=== PATIENT | female | born 1955 | race Caucasian/White ===

== ENCOUNTER 2020-10-26 08:11 | Inpatient (IN) ==
[2020-10-26] MEDS ORDERED: VANCOMYCIN CONSULT ACTIVE PRN (09:35)
[2020-10-26] MEDS ORDERED: SODIUM CHLORIDE 0.9% 500 ML IV STA (09:35)
[2020-10-26] MEDS ORDERED: VANCOMYCIN HCL 2,000 MG in SODIUM CHLORIDE 0.9% 500 ML IV STA (09:35)
[2020-10-26 09:56] LABS: Basophils # (auto) 0.02 K/uL (0-0.2); Basophils % (auto) 0.1 %; Eosinophils # (auto) 0.26 K/uL (0-0.5); Eosinophils % (auto) 1.4 %; Hematocrit (blood only) 36.6 % (37-47); Hemoglobin 11.6 g/dL (12.0-16.0); Immature Granulocytes % (auto) 2.1 %; Lymphocytes # (auto) 1.63 K/uL (1.2-3.4); Lymphocytes % (auto) 8.7 %; Mean Corpuscular Hgb Conc 31.7 g/dL (32-36); Mean Corpuscular Volume 97.9 fL (80-100); Mean Platelet Volume 10.8 fL (7.4-10.4); Monocytes # (auto) 1.77 K/uL (0.11-0.59); Monocytes % (auto) 9.5 %; Neutrophils # (auto) 14.59 K/uL (1.4-6.5); Neutrophils % (auto) 78.2 %; Platelet Count 260 K/uL (130-400); RDW Coefficient of Variation 15.4 % (11.5-14.5); RDW Standard Deviation 55.2 fL (36.4-46.3); Red Blood Count 3.74 M/uL (4.2-5.4); White Blood Count 18.67 K/uL (4.8-10.8)
[2020-10-26 10:13] LABS: Albumin Level 2.8 gm/dl (3.4-5.0); BUN Creatinine Ratio 21.4 (10-20); Calcium 9.3 mg/dl (8.5-10.1); Creatinine Clr Calc Pharmacy 121.1 ml/min; Est GFR (African American) 121.8 ml/min; Est GFR (Non-African American) 105.1 ml/min; Potassium 3.8 mmol/L (3.5-5.1)
[2020-10-26 10:16] LABS: Albumin Globulin Ratio 0.8 (0.9-2); Bilirubin,Total 0.2 mg/dl (0.2-1); Globulin 3.4 gm/dl (2.5-4.0); Total Protein 6.2 gm/dl (6.4-8.2)
--- NOTE | 2020-10-26 10:33 | Emergency Department Note ---
History of Present Illness General Chief complaint: Infection Stated complaint: R ELBOW INFLAMED,MRSA IN CULTURE,INFECT,REF BY MD Time Seen by Provider: 10/26/20 09:20 History of Present Illness Maximum Pain Intensity: 10 A 65-year-old female who presents to the ED with a chief complaint of a right elbow infection. The patient states that she has had the redness and infection for the past couple weeks. She initially was felt to have rheumatoid arthritis inflammation. She reports that she saw Dr. Verde on Friday and the elbow was tapped and fluid was sent. The fluid culture showed MRSA, per the patient. She states that her symptoms have not improved. She was sent here for admission for her infection. Her pain is worse with movement. Denies any vomiting. No additional symptoms. Home Medications Medication Instructions Recorded Confirmed Type albuterol sulfate 90 mcg/actuation 2 puff INHALATION QID PRN 10/26/20 10/26/20 History aerosol inhaler aspirin 81 mg tablet,delayed 81 mg PO DAILY 10/26/20 10/26/20 History release bisacodyl 10 mg rectal suppository 10 mg [place] DAILY PRN MDD no more 10/26/20 10/26/20 History (Dulcolax (bisacodyl)) than 1 per week budesonide-formoterol HFA 160 2 puff INHALATION BID 10/26/20 10/26/20 History mcg-4.5 mcg/actuation aerosol inhaler (Symbicort) calcium carbonate 600 mg (1,500 1 tab PO DAILY 10/26/20 10/26/20 History mg)-vitamin D3 200 unit tablet (Calcium 600 + D(3)) cholecalciferol (vitamin D3) 10 10 mcg PO DAILY 10/26/20 10/26/20 History mcg (400 unit) chewable tablet (Vitamin D3) denosumab 60 mg/mL subcutaneous 60 mg SUBCUT Q180D 10/26/20 10/26/20 History syringe (Prolia) dextroamphetamine-amphetamine 7.5 7.5 mg PO BID 10/26/20 10/26/20 History mg tablet docusate sodium 100 mg capsule 100 mg PO BID 10/26/20 10/26/20 History fluconazole 100 mg tablet 100 mg PO DAILY 10/26/20 10/26/20 History folic acid 1 mg tablet 1 mg PO DAILY 10/26/20 10/26/20 History hydrocodone 10 mg-acetaminophen 1 tab PO Q4H PRN MDD 6 tabs per day 10/26/20 10/26/20 History 325 mg tablet hydrocortisone acetate 25 mg 25 mg [place] BID PRN 10/26/20 10/26/20 History rectal suppository ipratropium 0.5 mg-albuterol 3 mg 3 ml INHALATION Q4H PRN 10/26/20 10/26/20 History (2.5 mg base)/3 mL nebulization soln lisinopril 20 mg tablet 20 mg PO DAILY 10/26/20 10/26/20 History lorazepam 0.5 mg tablet 0.5 mg PO BID PRN 10/26/20 10/26/20 History methotrexate sodium 2.5 mg tablet 15 mg PO WK 10/26/20 10/26/20 History methylprednisolone 4 mg tablets in 4 mg PO DIRECTED 10/26/20 10/26/20 History a dose pack multivitamin 1 tab PO DAILY 10/26/20 10/26/20 History oxycodone 5 mg tablet 5 mg PO Q8H PRN 10/26/20 10/26/20 History pantoprazole 40 mg tablet,delayed 40 mg PO DAILY 10/26/20 10/26/20 History release potassium chloride 10 mEq 10 meq PO TID 10/26/20 10/26/20 History capsule,extended release rosuvastatin 10 mg tablet 10 mg PO PM 10/26/20 10/26/20 History sertraline 25 mg tablet 25 mg PO DAILY 10/26/20 10/26/20 History sulfamethoxazole 800 1 tab PO BID 10/26/20 10/26/20 History mg-trimethoprim 160 mg tablet tofacitinib 11 mg tablet,extended 11 mg PO DAILY 10/26/20 10/26/20 History release 24 hr (Xeljanz XR) Allergies Allergy/AdvReac Type Severity Reaction Status Date / Time No Known Allergies Allergy Unverified 10/26/20 10:11 Past Med/Surg History Social History Smoking Status: Former smoker Tobacco Type: Cigarettes Feels Safe at Home: Yes Review of Systems A total of 10 systems reviewed and were otherwise negative Physical Exam Vital Signs Vital Signs - 24 hr 10/26/20 08:20 10/26/20 08:50 Temperature 36.9 C Temperature Source Oral Pulse Rate 99 H Respiratory Rate 18 18 Respiratory Effort / Characteristics Non-Labored Spontaneous Respiratory Depth Normal Blood Pressure 144/68 H Blood Pressure Mean 93 Pulse Oximetry 96 92 Oxygen Delivery Method Room Air Room Air Oxygen Flow Rate 0 Sepsis Recent Fever Within 48 Hours Yes Sepsis New/Unexplained Change in Mental Status No Sepsis Action Taken by Nursing No Action Required CONSTITUTIONAL/VITAL SIGNS: Reviewed / noted above. GENERAL: Non-toxic in appearance. INTEGUMENTARY: Warm, dry, and [place]. HEAD: Normocephalic. EYES: without scleral icterus or trauma. ENT/OROPHARYNX: clear and moist. LYMPHADENOPATHY/NECK: Is supple without lymphadenopathy or meningismus. RESPIRATORY: Clear to auscultation bilaterally. No increased work of breathing. CARDIOVASCULAR: Regular rate and rhythm. GI/ABDOMEN: Soft and nontender. No organomegaly or pulsatile mass. EXTREMITIES: Warm and well perfused. Diffuse erythema to the region around the right elbow including the proximal forearm and distal humeral region. There appears to be some fluid in the area of the elbow posteriorly. BACK: No CVA tenderness. NEUROLOGICAL: Intact without focal deficits. PSYCHIATRIC: normal affect. MUSCULOSKELETAL: Normally developed with good muscle tone. TRIAGE NURSING DOCUMENTATION REVIEWED. Course Administered Medications Vancomycin HCl 2,000 mg/ (Sodium Chloride) 540 mls @ 200 mls/hr IV NOW STA Stop: 10/26/20 12:16 Last Admin: 10/26/20 09:59 Dose: 200 mls/hr Documented by: [id number] Discontinued Medications Sodium Chloride (Nss) 500 mls @ 999 mls/hr IV .Q31M STA Stop: 10/26/20 10:05 Last Admin: 10/26/20 09:45 Dose: 999 mls/hr Documented by: [id number] Medical Decision Making Differential Diagnosis Cellulitis, abscess, MRSA infection, DVT, necrotizing fasciitis, dermatitis, drug eruption, allergic reaction, as well as other pathologies. Medical Records Attestation: I reviewed the patient's medical records. Home Medications Current Medication List: was personally reviewed by me Laboratory Data Attestation: I reviewed the patient's lab results. Result diagrams: 10/26/20 09:35 10/26/20 09:35 Lab Results 10/26/20 10/26/20 Range/Units 09:35 09:35 WBC 18.67 H (4.8-10.8) K/uL RBC 3.74 L (4.2-5.4) M/uL Hgb 11.6 L (12.0-16.0) g/dL Hct 36.6 L (37-47) % MCV 97.9 (80-100) fL MCH 31.0 (25-34) pg MCHC 31.7 L (32-36) g/dL RDW Std Deviation 55.2 H (36.4-46.3) fL RDW Coeff of Stef 15.4 H (11.5-14.5) % Plt Count 260 (130-400) K/uL MPV 10.8 H (7.4-10.4) fL Immature Gran % (Auto) 2.1 % Neut % (Auto) 78.2 % Lymph % (Auto) 8.7 % Dickens % (Auto) 9.5 % Eos % (Auto) 1.4 % Baso % (Auto) 0.1 % Neut # (Auto) 14.59 H (1.4-6.5) K/uL Lymph # (Auto) 1.63 (1.2-3.4) K/uL Dickens # (Auto) 1.77 H (0.11-0.59) K/uL Eos # (Auto) 0.26 (0-0.5) K/uL Baso # (Auto) 0.02 (0-0.2) K/uL Immature Gran # (Auto) 0.40 H (0.00-0.02) K/uL Sodium 137 (136-145) mmol/L Potassium 3.8 (3.5-5.1) mmol/L Chloride 102 (98-107) mmol/L Carbon Dioxide 31 (21-32) mmol/L Anion Gap 5.0 (3-11) BUN 10 (7-18) mg/dl Creatinine 0.47 L (0.6-1.2) mg/dl Est Cr Clr Drug Dosing 121.1 ml/min Est GFR ( Amer) 121.8 ml/min Est GFR (Non-Af Amer) 105.1 ml/min BUN/Creatinine Ratio 21.4 H (10-20) Glucose 110 H (70-99) mg/dl Calcium 9.3 (8.5-10.1) mg/dl Total Bilirubin 0.2 (0.2-1) mg/dl AST 10 L (15-37) U/L ALT 11 L (12-78) U/L Alkaline Phosphatase 78 (45-117) U/L Total Protein 6.2 L (6.4-8.2) gm/dl Albumin 2.8 L (3.4-5.0) gm/dl Globulin 3.4 (2.5-4.0) gm/dl Albumin/Globulin Ratio 0.8 L (0.9-2) MDM Narrative Patient presents with cellulitis of the right arm in addition to olecranon bursitis. She had a culture of the bursal fluid that showed MRSA. She was started on IV vancomycin here. She will require further inpatient evaluation and care and IV antibiotics. Impression & Plan Cellulitis of arm, right, Septic olecranon bursitis of right elbow Discharge Plan Visit Data Chief Complaint: Infection Stated Complaint: R ELBOW INFLAMED,MRSA IN CULTURE,INFECT,REF BY MD ED Provider: Evgeny Napier Discharge Problem: Cellulitis of arm, right, Septic olecranon bursitis of right elbow Patient Disposition: Being Evaluated by Hospitalist Forms Stand Alone Forms: [facility] Prescriptions Prescriptions: No Action multivitamin Tablet 1 tab PO DAILY RF: 0 dextroamphetamine-amphetamine 7.5 mg tablet 7.5 mg PO BID RF: 0 fluconazole 100 mg tablet 100 mg PO DAILY RF: 0 potassium chloride 10 mEq capsule, extended release 10 meq PO TID RF: 0 ipratropium-albuterol 0.5 mg-3 mg(2.5 mg base)/3 mL solution for nebulization 3 ml INHALATION Q4H PRN (Reason: SOB) RF: 0 lisinopril 20 mg tablet 20 mg PO DAILY RF: 0 calcium carbonate-vitamin D3 [Calcium 600 + D(3)] 600 mg(1,500mg) -200 unit Tablet 1 tab PO DAILY RF: 0 sulfamethoxazole-trimethoprim 800-160 mg tablet 1 tab PO BID RF: 0 hydrocodone-acetaminophen 10-325 mg tablet 1 tab PO Q4H MDD 6 tabs per day PRN (Reason: Severe Pain (Scale Score 7-10)) RF: 0 aspirin 81 mg Tablet,Delayed Release (Dr/Ec) 81 mg PO DAILY RF: 0 hydrocortisone acetate 25 mg Suppository 25 mg [place] BID PRN (Reason: Hemorrhoids) RF: 0 lorazepam 0.5 mg tablet 0.5 mg PO BID PRN (Reason: agitation/ anxiety) RF: 0 methotrexate sodium 2.5 mg tablet 15 mg PO WK RF: 0 bisacodyl [Dulcolax (bisacodyl)] 10 mg Suppository 10 mg [place] DAILY MDD no more than 1 per week PRN (Reason: Constipation) RF: 0 pantoprazole 40 mg tablet,delayed release (DR/EC) 40 mg PO DAILY RF: 0 docusate sodium 100 mg Capsule 100 mg PO BID RF: 0 sertraline 25 mg tablet 25 mg PO DAILY RF: 0 folic acid 1 mg tablet 1 mg PO DAILY RF: 0 methylprednisolone 4 mg tablets,dose pack 4 mg PO DIRECTED RF: 0 albuterol sulfate 90 mcg/actuation HFA aerosol inhaler 2 puff INHALATION QID PRN (Reason: SOB/Wheezing) RF: 0 oxycodone 5 mg tablet 5 mg PO Q8H PRN (Reason: Severe Pain (Scale Score 7-10)) RF: 0 rosuvastatin 10 mg tablet 10 mg PO PM RF: 0 budesonide-formoterol [Symbicort] 160-4.5 mcg/actuation HFA aerosol inhaler 2 puff INHALATION BID RF: 0 cholecalciferol (vitamin D3) [Vitamin D3] 10 mcg (400 unit) Tablet,Chewable 10 mcg PO DAILY RF: 0 Prolia 60 mg/mL Syringe 60 mg SUBCUT Q180D RF: 0 Xeljanz XR 11 mg tablet extended release 24 hr 11 mg PO DAILY RF: 0 Referrals Referrals: Carlos Ambriz DO [Primary Care Provider] -
--- NOTE | 2020-10-26 10:52 | History & Physical Report ---
Date of Service October 26, 2020 Assessment & Plan (1) Septic olecranon bursitis of right elbow: (2) Cellulitis of arm, right: Plan: This is a 65yo F with a PMH of rheumatoid arthritis, COPD, anxiety and other medical problems listed below who presents with pain and swelling of R elbow x 2 weeks and was sent in for further evaluation and treatment of MRSA olecranon bursitis of R elbow. Outpatient synovial culture grew MRSA On day 4 of Bactrim but cellulitis worsening Afebrile, HR 99, leukocytosis 18.67, ESR 69, CRP 14.5, procal WNL Meets sepsis criteria Initial lactate 2.1. Repeat pending Started on IV Vanco in ED- plan to continue Follow blood culture Obtaining CT w/wo con of R elbow Ortho consulted Pain control, IV fluids (3) Rheumatoid arthritis: Plan: Follows with Dr. [place] On chronic steroids (continue), PRN [place] and oxycodone for RA Holding Xeljanz and MTX per rheum (4) COPD (chronic obstructive pulmonary disease): Plan: Does not require O2 at baseline, inhalers and nebs PRN (5) Anxiety: Plan: Continue Zoloft, Ativan PRN (6) Diabetes mellitus, type II: Plan: No formal diagnosis, recent a1c 6.6 at beginning of October in setting of chronic steroid use Not on any home medications Diabetic diet while admitted Patient not agreeable to SSI at this time - continue to monitor DVT Ppx: SQ Lovenox Code status: FULL PCP: Pb Dispo: Admit med tele. Plan to return home once medically stable. Patient seen in collaboration with Dr. Arnold. Please see addendum. History of Present Illness Primary Care Provider: Carlos Ambriz DO This is a 65yo F with a PMH of rheumatoid arthritis, COPD, anxiety and other medical problems listed below who presents with pain and swelling of R elbow x 2 weeks. Does not remember a bite or trauma to elbow. Initially thought pain was due to RA flare and completed medrol dose pack. Saw Dr. Chandler on Friday who was concerned for septic olecranon bursitis and did joint aspiration. Was started on Bactrim at that time. Synovial culture grew MRSA. Patient has continued to experience worsening R elbow pain and swelling in the past few days despite antibiotic therapy. Redness now extending down forarm as well. Warm to touch. Was seen for follow up with rheumatology earlier today and directed to ER for IV antibiotics and orthopedic evaluation. Endorses low grade fever. No chills. Reduced ROM due to pain. Denies lightheadedness, headache, chest pain, SOB, nausea, vomiting, abdominal pain, dysuria, diarrhea or constipation. Holding Xeljanz and MTX per rheum. Allergies Allergy/AdvReac Type Severity Reaction Status Date / Time No Known Allergies Allergy Unverified 10/26/20 10:11 Home Medications Medication Instructions Recorded Confirmed Type albuterol sulfate 90 mcg/actuation 2 puff INHALATION QID PRN 10/26/20 10/26/20 History aerosol inhaler aspirin 81 mg tablet,delayed 81 mg PO QAM 10/26/20 10/26/20 History release bisacodyl 10 mg rectal suppository 10 mg [place] DAILY PRN MDD no more 10/26/20 10/26/20 History (Dulcolax (bisacodyl)) than 1 per week budesonide-formoterol HFA 160 2 puff INHALATION BID 10/26/20 10/26/20 History mcg-4.5 mcg/actuation aerosol inhaler (Symbicort) calcium carbonate 600 mg (1,500 1 tab PO QAM 10/26/20 10/26/20 History mg)-vitamin D3 200 unit tablet (Calcium 600 + D(3)) cholecalciferol (vitamin D3) 10 10 mcg PO QAM 10/26/20 10/26/20 History mcg (400 unit) chewable tablet (Vitamin D3) denosumab 60 mg/mL subcutaneous 60 mg SUBCUT Q180D 10/26/20 10/26/20 History syringe (Prolia) dextroamphetamine-amphetamine 7.5 7.5 mg PO BID 10/26/20 10/26/20 History mg tablet docusate sodium 100 mg capsule 100 mg PO BID 10/26/20 10/26/20 History fluconazole 100 mg tablet 100 mg PO QAM 10/26/20 10/26/20 History folic acid 1 mg tablet 1 mg PO QAM 10/26/20 10/26/20 History hydrocodone 10 mg-acetaminophen 1 tab PO Q4H PRN MDD 6 tabs per day 10/26/20 10/26/20 History 325 mg tablet hydrocortisone acetate 25 mg 25 mg [place] BID PRN 10/26/20 10/26/20 History rectal suppository ipratropium 0.5 mg-albuterol 3 mg 3 ml INHALATION Q4H PRN 10/26/20 10/26/20 History (2.5 mg base)/3 mL nebulization soln lisinopril 20 mg tablet 20 mg PO QAM 10/26/20 10/26/20 History lorazepam 0.5 mg tablet 0.5 mg PO BID PRN 10/26/20 10/26/20 History methotrexate sodium 2.5 mg tablet 15 mg PO WK 10/26/20 10/26/20 History multivitamin 1 tab PO QAM 10/26/20 10/26/20 History oxycodone 5 mg tablet 5 mg PO Q8H PRN 10/26/20 10/26/20 History pantoprazole 40 mg tablet,delayed 40 mg PO QAM 10/26/20 10/26/20 History release potassium chloride 10 mEq 10 meq PO TID 10/26/20 10/26/20 History capsule,extended release prednisone 5 mg tablet 5 mg PO QAM 10/26/20 10/26/20 History rosuvastatin 10 mg tablet 10 mg PO PM 10/26/20 10/26/20 History sertraline 25 mg tablet 25 mg PO QAM 10/26/20 10/26/20 History sulfamethoxazole 800 1 tab PO BID 10/26/20 10/26/20 History mg-trimethoprim 160 mg tablet tofacitinib 11 mg tablet,extended 11 mg PO QAM 10/26/20 10/26/20 History release 24 hr (Xeljanz XR) Past Med/Surg History Medical History COPD (chronic obstructive pulmonary disease) Diabetes mellitus, type II Rheumatoid arthritis Surgical History Delivery by section H/O arthroscopy of shoulder Family History Other Heart disease Lung cancer Social History (Updated 10/26/20 @ 10:51 by Chey Soto PA-C) Smoking Status: Former smoker Tobacco Type: Cigarettes Years Smoked: 25; Hx Alcohol Use: Yes Alcohol Intake Frequency Comment: occasional Hx Substance Use: No Feels Safe at Home: Yes Review of Systems Review of Systems: At least ten systems reviewed and negative except as noted in the HPI. Physical Exam Physical Exam: Please see Dr. Arnold's addendum for physical exam details. Results & Data Results & Data ([facility]) Vital Signs (Past 12 Hours) Vital Signs Temp Pulse Resp BP Pulse Ox 10/26/20 08:50 18 92 10/26/20 08:20 36.9 C 99 H 18 144/68 H 96 Laboratory Results Short CBC 10/26/20 Range/Units 09:35 WBC 18.67 H (4.8-10.8) K/uL Hgb 11.6 L (12.0-16.0) g/dL Hct 36.6 L (37-47) % Plt Count 260 (130-400) K/uL BMP 10/26/20 09:35 Sodium 137 Potassium 3.8 Chloride 102 Carbon Dioxide 31 BUN 10 Creatinine 0.47 L Glucose 110 H Calcium 9.3 Liver Function 10/26/20 Range/Units 09:35 Total Bilirubin 0.2 (0.2-1) mg/dl AST 10 L (15-37) U/L ALT 11 L (12-78) U/L Alkaline Phosphatase 78 (45-117) U/L Albumin 2.8 L (3.4-5.0) gm/dl Diagnostic Findings CT R elbow pending Supervising Physician Co-Signing Physician Notes Patient is a 65-year-old female with history of rheumatoid arthritis, COPD and other medical problems presents with history of right elbow swelling, erythema, low-grade fever intermittently which has been gradually worsening since 2 weeks duration. Patient denies any wound, discharge, trauma, bug bite. She was seen by her shirt marker and had aspiration of synovial fluid which grew MRSA as outpatient and was placed on Bactrim on Friday. He states the rash started after extension down to her wrist. Pain is pressure-like sensation, radiates to the wrist, worsens with activity, 8/10 intensity. please review HPI for complete details of presentation. She was noted to have an elevated white blood count 18k, lactic acid 2.1, ESR 69, procalcitonin 0.05, CRP 14.5. CT of the elbow is pending. Physical Exam: Vitals signs as noted above General Appearance:Moderately built and nourished, no apparent distress Head: normocephalic, Atraumatic Eyes: normal inspection, EOMI Neck: supple, Trachea midline Respiratory/Chest: Decreased breath sounds, CTA, No accessory muscle use Cardiovascular: S1, S2, No murmur Abdomen/GI:Soft, Non tender, Bowel sounds present Extremities/Musculoskeletal:normal inspection, no edema, right elbow on decreased ROM, warm, erythematous, tender. Neurologic/Psych:AAOX3, grossly no focal neurological deficits Skin: normal color, warm Right septic olecranon bursitis/Cellulitis R/O Abscess CT Elbow pending Outpatient synovial fluid culture grew MRSA Hold Bactrim Blood cultures obtained Started on IV vancomycin Consulted orthopedics Pain control Agree with holding RA meds--Xeljanz, methotrexate I personally reviewed the record. Patient is interviewed and examined at bedside. Patient's care is coordinated with Chey Soto PA-C. Please refer to the documentation above for details of patient's presentation and for discussion of other issues.
[2020-10-26] MEDS ORDERED: OPTIRAY 320 100ml IV ONE (12:37)
[2020-10-26] MEDS ORDERED: ACETAMINOPHEN 325 MG TAB PO PRN (12:50)
[2020-10-26] MEDS ORDERED: POLYETHYLENE (MIRALAX) 17 GM PACK PO PRN (12:50)
[2020-10-26] MEDS ORDERED: ONDANSETRON INJ 2 MG/ML 2 ML VIAL IV PRN (12:50)
[2020-10-26] MEDS: HYDROcodone/ACETAMINOPHEN 10/325 TAB PO PRN ×2 (13:28→18:11)
[2020-10-26] MEDS ORDERED: ALBUT/IPRATROP 3MG/0.5MG NEB 3 ML VIAL INH PRN (13:29)
[2020-10-26] MEDS: SODIUM CHLORIDE 0.9% 1000ML 1,000 ML IV SCH ×2 (13:29→20:09)
[2020-10-26] MEDS ORDERED: LORazepam 0.5 MG TAB PO PRN (13:29)
[2020-10-26] MEDS ORDERED: ALBUTEROL HFA 8 GM INHALER INH PRN (13:29)
[2020-10-26] MEDS ORDERED: bisacodyL 10 MG SUPP PR PRN (13:29)
--- NOTE | 2020-10-26 13:42 | CT Scan Report ---
CT SCAN OF THE RIGHT ELBOW COMBO CLINICAL HISTORY: Olecranon bursitis. Infection. COMPARISON STUDY: No priors. TECHNIQUE: Before and following the IV administration of 94 cc of Optiray 320, CT scan of the right e lbow is performed from the distal humeral shaft the proximal radius and ulna. Images are reviewed in the axial, sagittal, and coronal planes. IV contrast was administered without complication. Note that interpretation is suboptimal without plain film correlate. The examination is also degraded by subop timal patient positioning. A dose lowering technique was utilized adhering to the principles of ALARA . CT DOSE: 394.88 mGy.cm FINDINGS: The skeletal structures are osteopenic. There is no evidence of fracture. No bony erosion o r periostitis is identified. The joint spaces of the elbow are maintained. There is a joint effusion. Significant soft tissue edema is present around the elbow, greatest dorsally. No soft tissue gas is seen. A crescentic fluid collection is seen posterior to the olecranon process and measures approxima tely 4 x 0.7 x 4 cm. This is consistent with olecranon bursitis. The sterility of this fluid cannot b e evaluated by CT. The regional musculature is normal in appearance. The regional vessels are patent. IMPRESSION: 1. No acute bony abnormality is identified. 2. Joint effusion. 3. Significant soft tissue edema around the elbow is typical for cellulitis. Clinical correlation qasim l be required. 4. There is an approximately 4 cm crescentic fluid collection posterior to the olecranon process, com patible with the reported history of olecranon bursitis. The sterility of this fluid cannot be evalua victorino by imaging and clinical correlation will be required. ACT 112: Negative or not required by law. Dictated: 10/26/2020 1:11 PM Transcribed: 10/26/2020 1:34 PM Hailey [id number] [email or web address] Electronically signed by: Jeffery Jauregui M.D. 10/26/2020 1:40 PM
--- NOTE | 2020-10-26 14:37 | Orthopedic Consultation ---
Date of Consultation October 26, 2020 Assessment & Plan (1) Septic olecranon bursitis of right elbow: CT scan results as noted. Although it is showing a bit of a joint effusion, I do not believe this to be infectious secondary to clinical examination. Culture results from 10/23/2020 showing MRSA. Patient has been placed on vancomycin. Continue IV antibiotics. Elevation of the right upper extremity on at least 2 pillows. I discussed with the patient that there is a good chance that she would need an irrigation and debridement. She has eaten today. We will make her n.p.o. after midnight. We discussed that if I&D is warranted, that it would be tomorrow afternoon versus Friday morning depending on OR status. I will contact [facility] physicians to discuss the case with them and finalize any further plans. Thank you for this consult. History of Present Illness Reason for Consultation: Right septic olecranon bursitis Attending Physician: Lowell Arnold MD History of Present Illness Patient is a 65-year-old white female with history of COPD, rheumatoid arthritis, diabetes mellitus type 2, anxiety who states that she bumped her elbow a week or 2 ago and began developing swelling in the right elbow. It was initially felt to be a possible rheumatoid flare which she has had before and was started on steroids. It began to increasingly hurt and become red. She eventually saw her fern gatherer in the office at the beginning of the week. At that time, he aspirated fluid from the right olecranon bursa and sent it for culture. She was started on Bactrim. Culture came back positive for MRSA. Patient states that she continued to have worsening symptoms which included increasing swelling and redness of her forearm down to her wrist. She continued to have moderate pain in the right elbow. A repeat visit to her physician was then followed by coming here to the emergency room at his request. No complaints of fevers or chills, nausea or vomiting, chest pain, lightheadedness, increasing shortness of breath. [facility] and has been started on IV antibiotics. We have been asked to see her for her right septic olecranon bursitis. Allergies Allergy/AdvReac Type Severity Reaction Status Date / Time No Known Allergies Allergy Unverified 10/26/20 10:11 Home Medications Medication Instructions Recorded Confirmed Type albuterol sulfate 90 mcg/actuation 2 puff INHALATION QID PRN 10/26/20 10/26/20 History aerosol inhaler aspirin 81 mg tablet,delayed 81 mg PO QAM 10/26/20 10/26/20 History release bisacodyl 10 mg rectal suppository 10 mg [place] DAILY PRN MDD no more 10/26/20 10/26/20 History (Dulcolax (bisacodyl)) than 1 per week budesonide-formoterol HFA 160 2 puff INHALATION BID 10/26/20 10/26/20 History mcg-4.5 mcg/actuation aerosol inhaler (Symbicort) calcium carbonate 600 mg (1,500 1 tab PO QAM 10/26/20 10/26/20 History mg)-vitamin D3 200 unit tablet (Calcium 600 + D(3)) cholecalciferol (vitamin D3) 10 10 mcg PO QAM 10/26/20 10/26/20 History mcg (400 unit) chewable tablet (Vitamin D3) denosumab 60 mg/mL subcutaneous 60 mg SUBCUT Q180D 10/26/20 10/26/20 History syringe (Prolia) dextroamphetamine-amphetamine 7.5 7.5 mg PO BID 10/26/20 10/26/20 History mg tablet docusate sodium 100 mg capsule 100 mg PO BID 10/26/20 10/26/20 History fluconazole 100 mg tablet 100 mg PO QAM 10/26/20 10/26/20 History folic acid 1 mg tablet 1 mg PO QAM 10/26/20 10/26/20 History hydrocodone 10 mg-acetaminophen 1 tab PO Q4H PRN MDD 6 tabs per day 10/26/20 10/26/20 History 325 mg tablet hydrocortisone acetate 25 mg 25 mg [place] BID PRN 10/26/20 10/26/20 History rectal suppository ipratropium 0.5 mg-albuterol 3 mg 3 ml INHALATION Q4H PRN 10/26/20 10/26/20 History (2.5 mg base)/3 mL nebulization soln lisinopril 20 mg tablet 20 mg PO QAM 10/26/20 10/26/20 History lorazepam 0.5 mg tablet 0.5 mg PO BID PRN 10/26/20 10/26/20 History methotrexate sodium 2.5 mg tablet 15 mg PO WK 10/26/20 10/26/20 History multivitamin 1 tab PO QAM 10/26/20 10/26/20 History oxycodone 5 mg tablet 5 mg PO Q8H PRN 10/26/20 10/26/20 History pantoprazole 40 mg tablet,delayed 40 mg PO QAM 10/26/20 10/26/20 History release potassium chloride 10 mEq 10 meq PO TID 10/26/20 10/26/20 History capsule,extended release prednisone 5 mg tablet 5 mg PO QAM 10/26/20 10/26/20 History rosuvastatin 10 mg tablet 10 mg PO PM 10/26/20 10/26/20 History sertraline 25 mg tablet 25 mg PO QAM 10/26/20 10/26/20 History sulfamethoxazole 800 1 tab PO BID 10/26/20 10/26/20 History mg-trimethoprim 160 mg tablet tofacitinib 11 mg tablet,extended 11 mg PO QAM 10/26/20 10/26/20 History release 24 hr (Xeljanz XR) Patient History Medical History COPD (chronic obstructive pulmonary disease) Diabetes mellitus, type II Rheumatoid arthritis Surgical History Delivery by section H/O arthroscopy of shoulder Family History Other Heart disease Lung cancer Social History Smoking Status: Former smoker Tobacco Type: Cigarettes Years Smoked: 25; Smoking End Date: 4 months ago; Second Hand Exposure: Yes ( smokes outside of home); Do You Dip or Chew Tobacco: No; Tobacco Cessation Education Requested by Patient: No Hx Alcohol Use: No Hx Substance Use: No Preferred Language: Arabic Communication Ability: Effective Monument Erector Required: No Beliefs That Will Affect Care: None Current Living Situation: Spouse Current Living Situation Comment: home with spouse. Other Information That Helps Us Care for You: Yes (daughter helps with groceries & other ADLs at times.) Feels Safe at Home: Yes Safety Concerns: Feels Safe At This Time Assistive Devices: Denture - Upper, Denture - Lower and Walker Review of Systems Review of Systems: All systems reviewed & are unremarkable except as noted in HPI & below Physical Exam Physical Exam: On examination, the patient is sitting up in bed awake and alert. She is oriented x3, no acute distress, pleasant and cooperative. When examining the right upper extremity, she has a noticeable cellulitis of the forearm from the wrist to the elbow. She has obvious swelling and erythema at the right elbow. She is able to take it through gentle range of motion which is reduced somewhat secondary to pain. She states that all of the pain is located at the elbow over the olecranon bursa. Range of motion does not cause her any deep joint pain with flexion or extension. She has a noticeable erythema going down the forearm with swelling noted of the forearm. It does appear that she is having a favorable response to some of the antibiotics with some decreased swelling and wrinkling of the skin. Swelling actually does go down to the dorsum of the hand. She has good range of motion of her right wrist without discomfort. She is able to go through range of motion of all her fingers without discomfort and range of motion is intact. She denies any pain above the elbow and denies pain in the axilla. The area over the elbow itself is moderately swollen and boggy. I can appreciate a fluid collection. She is exquisitely tender on palpation over this area. She denies any referred pain going down into the fingers. Sensation is completely intact of her fingers and she has good range of motion is noted. There is no gross motor or sensory loss seen at this time. Cap refill of the fingers is less than 2 seconds. Results & Data ([facility]) Vital Signs (Past 12 Hours) Vital Signs Temp Pulse Pulse Resp BP BP Pulse Ox 10/26/20 14:17 37.0 C 94 H 19 144/64 H 91 10/26/20 12:50 37.0 C 20 144/64 H 91 10/26/20 12:45 37.0 C 20 10/26/20 08:50 18 92 10/26/20 08:20 36.9 C 99 H 18 144/68 H 96 Pulse Ox 10/26/20 14:17 10/26/20 12:50 91 10/26/20 12:45 10/26/20 08:50 08/19/21 08:20 Diagnostic Findings Patient: SIMRAN DE LA GARZA Date: 10/26/20#: [id number]: 57Christopher PIERRE RDAcct ID:[id number]: Date: 1955City Zip: [place] [address]Dji: 65Location: 2WSex: FRoom/Bed: [id number] Phy: Lowell Arnold, YANEiagnosis: MRSA OLECRANON BURSITISPri Phy: Carlos Ambriz, DOService Date: 10/26/20Fam Phy:Interpreting Phy: Jeffery Jauregui MDAdmit Phy: Lowell Arnold MD Ordering Phy: Chey Soto PA-C cc: ~ CT SCAN OF THE RIGHT ELBOW COMBO CLINICAL HISTORY: Olecranon bursitis. Infection. COMPARISON STUDY: No priors. TECHNIQUE: Before and following the IV administration of 94 cc of Optiray 320, CT scan of the right elbow is performed from the distal humeral shaft the proximal radius and ulna. Images are reviewed in the axial, sagittal, and coronal planes. IV contrast was administered without complication. Note that interpretation is suboptimal without plain film correlate. The examination is also degraded by suboptimal patient positioning. A dose lowering technique was utilized adhering to the principles of ALARA. CT DOSE: 394.88 mGy.cm FINDINGS: The skeletal structures are osteopenic. There is no evidence of fracture. No bony erosion or periostitis is identified. The joint spaces of the elbow are maintained. There is a joint effusion. Significant soft tissue edema is present around the elbow, greatest dorsally. No soft tissue gas is seen. A crescentic fluid collection is seen posterior to the olecranon process and measures approximately 4 x 0.7 x 4 cm. This is consistent with olecranon bursitis. The sterility of this fluid cannot be evaluated by CT. The regional musculature is normal in appearance. The regional vessels are patent. IMPRESSION: 1. No acute bony abnormality is identified. 2. Joint effusion. 3. Significant soft tissue edema around the elbow is typical for cellulitis. Clinical correlation will be required. 4. There is an approximately 4 cm crescentic fluid collection posterior to the olecranon process, compatible with the reported history of olecranon bursitis. The sterility of this fluid cannot be evaluated by imaging and clinical correlation will be required.
[2020-10-26] MEDS: POTASSIUM CHLORIDE 10 MEQ TABCR PO SCH ×2 (15:40→20:17)
[2020-10-26] MEDS: ENOXAPARIN INJ 40 MG/0.4 ML SYR SQ SCH (15:40)
[2020-10-26] MEDS: VANCOMYCIN HCL 1,500 MG in SODIUM CHLORIDE 0.9% 500 ML IV SCH (20:10)
[2020-10-26] MEDS: KETOROLAC TROMETHAMINE 15 MG/ML VIAL IV PRN (20:13)
[2020-10-26] MEDS: DOCUSATE SODIUM 100 MG CAP PO SCH (20:17)
[2020-10-26] MEDS: ROSUVASTATIN CALCIUM 10 MG TAB PO SCH (20:18)
[2020-10-26] MEDS: AMPHETAMINE ASP/SULF/DEXTRAMPH 5 MG TAB PO SCH (20:20)
[2020-10-26] MEDS: oxyCODONE HCL IR 5 MG TAB (IMMEDIATE RELEASE) PO PRN (23:09)
[2020-10-27] MEDS: HYDROcodone/ACETAMINOPHEN 10/325 TAB PO PRN ×4 (03:23→23:46)
[2020-10-27] MEDS: KETOROLAC TROMETHAMINE 15 MG/ML VIAL IV PRN (06:18)
[2020-10-27 07:51] LABS: Hematocrit (blood only) 32.5 % (37-47); Hemoglobin 10.4 g/dL (12.0-16.0); Mean Corpuscular Volume 96.7 fL (80-100); Mean Platelet Volume 10.7 fL (7.4-10.4); Platelet Count 226 K/uL (130-400); RDW Coefficient of Variation 15.6 % (11.5-14.5); RDW Standard Deviation 54.8 fL (36.4-46.3); Red Blood Count 3.36 M/uL (4.2-5.4); White Blood Count 14.35 K/uL (4.8-10.8)
[2020-10-27 08:24] LABS: BUN Creatinine Ratio 23.4 (10-20); Calcium 7.9 mg/dl (8.5-10.1); Creatinine Clr Calc Pharmacy 162.6 ml/min; Est GFR (African American) 134.2 ml/min; Est GFR (Non-African American) 115.8 ml/min; Potassium 3.6 mmol/L (3.5-5.1)
[2020-10-27] MEDS: POTASSIUM CHLORIDE 10 MEQ TABCR PO SCH ×3 (08:52→20:01)
[2020-10-27] MEDS: MULTIVITAMIN TAB PO SCH (08:53)
[2020-10-27] MEDS: CHOLECALCIFEROL 400 UNITS 10 MCG TAB PO SCH (08:53)
[2020-10-27] MEDS: CALCIUM 600MG + VIT D 400 IU TAB PO SCH (08:53)
[2020-10-27] MEDS: ASPIRIN 81 MG ECTAB PO SCH (08:53)
[2020-10-27] MEDS: SERTRALINE HCL 50 MG TABLET PO SCH (08:54)
[2020-10-27] MEDS: FOLIC ACID 1 MG TAB PO SCH (08:55)
[2020-10-27] MEDS: PANTOprazole 40 MG TAB PO SCH (08:55)
[2020-10-27] MEDS: VANCOMYCIN HCL 1,500 MG in SODIUM CHLORIDE 0.9% 500 ML IV SCH ×2 (08:55→21:14)
[2020-10-27] MEDS: DOCUSATE SODIUM 100 MG CAP PO SCH ×2 (08:55→20:01)
[2020-10-27] MEDS: FLUTICASONE/VILANTEROL 100/25MCG 14 PUFFS/INHALER INH SCH (08:56)
--- NOTE | 2020-10-27 08:58 | Pharmacy Report ---
Pharmacy Vanc AUC Short Note - Date of Service October 27, 2020 - Assessment & Plan Assessment 65 year old F receiving vancomycin for possible septic bursitis. Developed swelling of elbow prior to admission. Had been on steroids due to concern of rheumatoid flare. Fluid aspirated from area and sent for culture and had been started on bactrim prior to admission. Culture per notes positive for MRSA Day # 2 of antimicrobial therapy. Plan Vancomycin * AUC/ANTELMO is the preferred PK/PD target for vancomycin * AUC guided dosing is effective and associated with decreased risk of nephrotoxicity compared to traditional trough targets * Trough level of ~16 mcg/mL is predicted to achieve target AUC/ANTELMO of 400-600 mg/L.hr and may be associated with a 11 % risk of nephrotoxicity * Continue dose of vancomycin 1500 mg iv q 12 hr * Trough level ordered for 10/27 at 1999 Pharmacy will continue to follow and will adjust dose/frequency as necessary. Thank you.
[2020-10-27] MEDS ORDERED: lisinopril 20 MG TAB PO SCH (09:00)
[2020-10-27] MEDS: oxyCODONE HCL IR 5 MG TAB (IMMEDIATE RELEASE) PO PRN ×2 (09:13→20:09)
[2020-10-27] MEDS: NSS + 20MEQ KCL 20 MEQ/1,000 ML BAG IV SCH ×2 (09:14→19:59)
[2020-10-27] MEDS: AMPHETAMINE ASP/SULF/DEXTRAMPH 5 MG TAB PO SCH ×2 (09:24→20:01)
[2020-10-27] MEDS: predniSONE 5 MG TAB PO SCH (09:24)
--- NOTE | 2020-10-27 09:42 | Orthopedic Progress Note ---
Date of Service October 27, 2020 Assessment & Plan (1) Septic olecranon bursitis of right elbow: Plan: Continue IV antibiotics. Continue elevation of the right arm. Plan for open irrigation debridement of right septic electron bursitis tomorrow morning. Resumed diet today. N.p.o. after midnight. Admission and Anticipated Discharge Date Admission Date: October 26, 2020 Subjective Patient sitting up in bed awake and alert. Continuing to have pain related to her cellulitis and her septic olecranon bursitis. No new complaints denies chest pain, worsening shortness of breath, lightheadedness Physical Exam Physical Exam: No major changes with the exam compared to yesterday. She continues with a cellulitis of the right forearm and also a right septic olecranon bursitis. She continues to be able to move the elbow with pain only on the superficial area of her right olecranon bursa. Mild discomfort in the forearm. Continues with good wrist range of motion. Mild swelling into the dorsum of the hand. Cap refills less than 2 seconds. Results & Data ([facility]) Vital Signs (Past 12 Hours) Vital Signs Temp Pulse Pulse Resp BP Pulse Ox 10/27/20 07:08 37.4 C 86 20 95/58 L 91 10/27/20 03:05 37.6 C H 92 H 20 125/67 92 10/27/20 00:06 89 10/26/20 23:00 37.1 C 88 20 131/57 L 91
--- NOTE | 2020-10-27 15:03 | Hospitalist Progress Note ---
Date of Service October 27, 2020 Assessment & Plan (1) Septic olecranon bursitis of right elbow: (2) Cellulitis of arm, right: Plan: per admitting service notes: This is a 65yo F with a PMH of rheumatoid arthritis, COPD, anxiety and other medical problems listed below who presents with pain and swelling of R elbow x 2 weeks and was sent in for further evaluation and treatment of MRSA olecranon bursitis of R elbow. Outpatient synovial culture grew MRSA On day 4 of Bactrim but cellulitis worsening Afebrile, HR 99, leukocytosis 18.67, ESR 69, CRP 14.5, procal WNL Meets sepsis criteria Initial lactate 2.1, normalized 10/27 CT R elbow: 1. No acute bony abnormality is identified. 2. Joint effusion. 3. Significant soft tissue edema around the elbow is typical for cellulitis. Clinical correlation will be required. 4. There is an approximately 4 cm crescentic fluid collection posterior to the olecranon process, compatible with the reported history of olecranon bursitis. The sterility of this fluid cannot be evaluated by imaging and clinical correlation will be required. - blood cultures pending - afebrile WBC down continue IV Vancomycin NSS added for Surgery tomorrow- no medical contraindication to proceed with surgery (3) Rheumatoid arthritis: Plan: Follows with Dr. [place] On chronic steroids (continue), PRN [place] and oxycodone for RA Holding Xeljanz and MTX per rheum (4) COPD (chronic obstructive pulmonary disease): Plan: Does not require O2 at baseline, inhalers and nebs PRN (5) Anxiety: Plan: Continue Zoloft, Ativan PRN (6) Diabetes mellitus, type II: Plan: No formal diagnosis, recent a1c 6.6 at beginning of October in setting of chronic steroid use Not on any home medications Diabetic diet while admitted Patient not agreeable to SSI at this time BSG acceptable DVT Ppx: SQ Lovenox Code status: FULL PCP: Pb Admission and Anticipated Discharge Date Admission Date: October 26, 2020 Subjective ff up for r olecranon bursitis, etc seen resting in bed, not in distress reports pain on her r elbow- about the same as yesterday no fever/chills, headache, chest pain, dyspnea, abdominal pain, nausea no other symptoms Review of Systems Review of Systems: all noted and negative except for above Physical Exam Physical Exam: General- oriented x 3, not in distress, speaks in sentences with no effort or accessory muscle use Head- atraumatic Eyes- PERRL, EOMI, anicteric ENT- oropharynx clear Neck- supple, no JVD, no adenopathy, no thyromegaly; carotids +2/2, no bruits appreciated Lungs- clear to auscultation bilaterally, no rales/wheezes Heart- normal rate, regular rhythm; no murmur, no gallop, no rub appreciated Abdomen- normal bowel sounds, nondistended, soft, nontender, no masses or hepatosplenomegaly Extremities- no pretibial edema, no calf tenderness; peripheral pulses intact R elbow: (+) moderate edema, and erythema, with mild warmth extending to forearm, hand, and mid upper arm Neuro- alert, oriented x 3; CN 2-12 grossly intact; motor 5/5 bilaterally;sensation 100% on all extremities; no other gross focal neurologic deficits Skin- warm & dry Results & Data Results & Data ([facility]) Vital Signs (Past 12 Hours) Vital Signs Temp Pulse Pulse Resp BP Pulse Ox 10/27/20 11:13 36.9 C 84 18 137/70 92 10/27/20 08:32 94 H 10/27/20 07:08 37.4 C 86 20 95/58 L 91 10/27/20 03:05 37.6 C H 92 H 20 125/67 92 all noted and reviewed including below
[2020-10-27] MEDS ORDERED: VANCOMYCIN TROUGH ONE (19:30)
[2020-10-27] MEDS: ROSUVASTATIN CALCIUM 10 MG TAB PO SCH (20:01)
--- NOTE | 2020-10-27 21:11 | Pharmacy Report ---
Pharmacy Vanc AUC Short Note - Date of Service October 27, 2020 - Assessment & Plan Assessment 65 year old F receiving vancomycin for treatment of MRSA bursitis. Pertinent microbiologic data includes: culture growing MRSA (collected prior to admission). Day # 2 of antimicrobial therapy. Plan Vancomycin * AUC/ANTELMO is the preferred PK/PD target for vancomycin * AUC guided dosing is effective and associated with decreased risk of nephrotoxicity compared to traditional trough targets * Trough level of 10.9 mcg/mL is predicted to achieve target AUC/ANTELMO of 400-600 mg/L.hr and may be associated with a 7 % risk of nephrotoxicity * Continue dose of 1500 mg IV every 12 hours * Trough to be reordered based upon clinical picture Pharmacy will continue to follow and will adjust dose/frequency as necessary. Thank you.
[2020-10-28] MEDS: oxyCODONE HCL IR 5 MG TAB (IMMEDIATE RELEASE) PO PRN ×2 (02:30→19:32)
[2020-10-28] MEDS: HYDROcodone/ACETAMINOPHEN 10/325 TAB PO PRN ×4 (04:10→21:28)
[2020-10-28] MEDS: NSS + 20MEQ KCL 20 MEQ/1,000 ML BAG IV SCH ×3 (06:23→19:29)
[2020-10-28] MEDS ORDERED: ONDANSETRON INJ 2 MG/ML 2 ML VIAL ONE (07:15)
[2020-10-28] MEDS ORDERED: fentaNYL citrate 100 MCG/2 ML VIAL ONE (07:15)
[2020-10-28] MEDS ORDERED: PROPOFOL IV EMULSION 10 MG/ML 20 ML VIAL IV ONE (07:15)
[2020-10-28] MEDS ORDERED: DEXAMETHASONE SOD INJ 4 MG/ML VIAL ONE (07:15)
[2020-10-28] MEDS ORDERED: LIDOCAINE 2% 2 ML VIAL/AMP(20MG/ML) INFIL ONE (07:15)
[2020-10-28] MEDS ORDERED: MIDAZOLAM HCL 1 MG/ML 2ML VIAL ONE (07:15)
--- NOTE | 2020-10-28 07:16 | Anesthesiology Consultation ---
Date of Service October 28, 2020 Assessment & Plan (1) Encounter for pre-operative examination: Chart Review Chart Review: Acceptable Risk for Surgery and Patient NOT seen in Pre Admission Testing Consults Requested none History Surgery Operation Date: 10/28/20 07:30 Proposed Procedures p Right Septic Olecranon Bursa Incision and Drainage - Sly Hawkins M.D. Height/Weight Height: 5 ft 4 in Weight: 74.5 kg Allergies Allergy/AdvReac Type Severity Reaction Status Date / Time No Known Allergies Allergy Unverified 10/26/20 10:11 Medications Home Medications Medication Instructions Recorded Confirmed Last Taken albuterol sulfate 90 mcg/actuation 2 puff INHALATION QID PRN 10/26/20 10/26/20 10/26/20 aerosol inhaler aspirin 81 mg tablet,delayed 81 mg PO QAM 10/26/20 10/26/20 10/25/20 release bisacodyl 10 mg rectal suppository 10 mg [place] DAILY PRN MDD no more 10/26/20 10/26/20 Unknown (Dulcolax (bisacodyl)) than 1 per week budesonide-formoterol HFA 160 2 puff INHALATION BID 10/26/20 10/26/20 10/25/20 mcg-4.5 mcg/actuation aerosol inhaler (Symbicort) calcium carbonate 600 mg (1,500 1 tab PO QAM 10/26/20 10/26/20 10/25/20 mg)-vitamin D3 200 unit tablet (Calcium 600 + D(3)) cholecalciferol (vitamin D3) 10 10 mcg PO QAM 10/26/20 10/26/20 10/25/20 mcg (400 unit) chewable tablet (Vitamin D3) denosumab 60 mg/mL subcutaneous 60 mg SUBCUT Q180D 10/26/20 10/26/20 08/23/20 syringe (Prolia) dextroamphetamine-amphetamine 7.5 7.5 mg PO BID 10/26/20 10/26/20 10/25/20 mg tablet docusate sodium 100 mg capsule 100 mg PO BID 10/26/20 10/26/20 10/25/20 fluconazole 100 mg tablet 100 mg PO QAM 10/26/20 10/26/20 10/25/20 folic acid 1 mg tablet 1 mg PO QAM 0810/26/20 10/25/20 hydrocodone 10 mg-acetaminophen 1 tab PO Q4H PRN MDD 6 tabs per day 10/26/20 10/26/20 10/26/20 325 mg tablet hydrocortisone acetate 25 mg 25 mg [place] BID PRN 10/26/20 10/26/20 Unknown rectal suppository ipratropium 0.5 mg-albuterol 3 mg 3 ml INHALATION Q4H PRN 10/26/20 10/26/20 Unknown (2.5 mg base)/3 mL nebulization soln lisinopril 20 mg tablet 20 mg PO QAM 10/26/20 10/26/20 10/25/20 lorazepam 0.5 mg tablet 0.5 mg PO BID PRN 10/26/20 10/26/20 10/26/20 methotrexate sodium 2.5 mg tablet 15 mg PO WK 10/26/20 10/26/20 10/18/20 multivitamin 1 tab PO QAM 10/26/20 10/26/20 10/25/20 oxycodone 5 mg tablet 5 mg PO Q8H PRN 10/26/20 10/26/20 10/26/20 pantoprazole 40 mg tablet,delayed 40 mg PO QAM 10/26/20 10/26/20 10/25/20 release potassium chloride 10 mEq 10 meq PO TID 10/26/20 10/26/20 10/25/20 capsule,extended release prednisone 5 mg tablet 5 mg PO QAM 10/26/20 10/26/20 10/19/20 rosuvastatin 10 mg tablet 10 mg PO PM 10/26/20 10/26/20 10/25/20 sertraline 25 mg tablet 25 mg PO QAM 10/26/20 10/26/20 10/25/20 sulfamethoxazole 800 1 tab PO BID 10/26/20 10/26/20 10/26/20 mg-trimethoprim 160 mg tablet tofacitinib 11 mg tablet,extended 11 mg PO QAM 10/26/20 10/26/20 10/19/20 release 24 hr (Xeljanz XR) Active Medications Generic Name Dose Route Start Last Admin Trade Name Freq PRN Reason Stop Dose Admin Acetaminophen 650 mg 10/26/20 12:50 10/27/20 20:01 Acetaminophen 325 Mg Tab PO 11/25/20 12:49 650 mg Q4H PRN Administration Pain or Fever Hydrocodone Bitart/Acetaminophen 1 tab 10/26/20 13:08 10/28/20 04:10 Hydrocodone/Acetaminophen 10/325 Tab PO 11/09/20 13:07 1 tab Q4H PRN Administration Severe Pain (Scale Score 7-10) Amphetamine/Dextroamphetamine 7.5 mg 10/26/20 21:00 10/28/20 07:47 Amphetamine Asp/Sulf/Dextramph 5 Mg Tab PO 11/25/20 20:59 Not Given BID LETA Aspirin 81 mg 10/27/20 09:00 10/28/20 07:48 Aspirin 81 Mg Ectab PO 11/26/20 08:59 Not Given QAM LETA Docusate Sodium 100 mg 10/26/20 21:00 10/28/20 07:48 Docusate Sodium 100 Mg Cap PO 11/25/20 20:59 Not Given BID LETA Enoxaparin Sodium 40 mg 10/26/20 14:00 10/26/20 15:40 Enoxaparin Inj 40 Mg/0.4 Ml Syr SQ 11/25/20 13:59 Not Given Q24H [facility] Fluticasone/Vilanterol 1 puffs 10/27/20 09:00 10/28/20 07:48 Fluticasone/Vilanterol 100/25mcg 14 Puffs/Inhaler INH 11/26/20 08:59 Not Given DAILY [facility] Protocol Folic Acid 1 mg 10/27/20 09:00 10/28/20 07:48 Folic Acid 1 Mg Tab PO 11/26/20 08:59 Not Given QAM [facility] Vancomycin HCl 1,500 mg/ 530 mls @ 200 mls/hr 10/26/20 20:00 10/28/20 07:47 Sodium Chloride IV 12/07/20 19:59 Not Given Q12H LETA Potassium Chloride/Sodium Chloride 20 meq in 1,000 mls @ 100 mls/hr 10/27/20 08:30 10/28/20 06:23 Normal Saline W/20 Meq Kcl IV 11/26/20 08:29 100 mls/hr .Q10H LETA Administration Lorazepam 0.5 mg 10/26/20 13:29 10/27/20 03:35 Lorazepam 0.5 Mg Tab PO 11/25/20 13:28 0.5 mg BID PRN Administration agitation/ anxiety Multivitamins 1 tab 10/27/20 09:00 10/28/20 07:48 Multivitamin Tab PO 11/26/20 08:59 Not Given QAM LETA Multivitamins/Minerals 1 tab 10/27/20 09:00 10/28/20 07:48 Calcium 600mg + Vit D 400 Iu Tab PO 11/26/20 08:59 Not Given QAM LETA Oxycodone HCl 5 mg 10/26/20 13:08 10/28/20 02:30 Oxycodone Hcl Ir 5 Mg Tab (Immediate Release) PO 11/09/20 13:07 5 mg Q8H PRN Administration Severe Pain (Scale Score 7-10) Pantoprazole Sodium 40 mg 10/27/20 09:00 10/28/20 07:48 Pantoprazole 40 Mg Tab PO 11/26/20 08:59 Not Given QAM LETA Potassium Chloride 10 meq 10/26/20 14:00 10/28/20 07:49 Potassium Chloride 10 Meq Tabcr PO 11/25/20 13:59 Not Given TID LETA Prednisone 5 mg 10/27/20 09:00 10/28/20 07:49 Prednisone 5 Mg Tab PO 11/26/20 08:59 Not Given QAM LETA Rosuvastatin Calcium 10 mg 10/26/20 21:00 10/27/20 20:01 Rosuvastatin Calcium 10 Mg Tab PO 11/25/20 20:59 10 mg PM LETA Administration Sertraline HCl 25 mg 10/27/20 09:00 10/28/20 07:49 Sertraline Hcl 50 Mg Tablet PO 11/26/20 08:59 Not Given QAM LETA Vitamin D 400 units 10/27/20 09:00 10/28/20 07:48 Cholecalciferol 400 Units 10 Mcg Tab PO 11/26/20 08:59 Not Given QAM LETA Past Medical History Medical History COPD (chronic obstructive pulmonary disease) Diabetes mellitus, type II Rheumatoid arthritis Past Family History Family History Other Heart disease Lung cancer Past Surgical History Surgical History Delivery by section H/O arthroscopy of shoulder Social History Smoking Status: Former smoker tobacco type: cigarettes Do You Dip or Chew Tobacco: No Smoking End Date: 4 months ago Hx Alcohol Use: No Hx Substance Use: No Physical Exam Vital Signs Last Vital Signs Temp 36.9 C 10/28/20 02:23 Pulse 100 H 10/28/20 02:23 Resp 18 10/28/20 02:23 BP 166/71 H 10/28/20 02:23 Pulse Ox 92 10/28/20 02:23 Testing Laboratory Results 10/27/20 07:14 10/27/20 07:14 10/26/20 09:35 Aerobic Blood Culture - Preliminary Blood No growth in Aerobic bottle after 24 hours. Anaerobic Blood Culture - Preliminary No growth in Anaerobic bottle after 24 hours. 10/26/20 09:41 Aerobic Blood Culture - Preliminary Blood No growth in Aerobic bottle after 24 hours. Anaerobic Blood Culture - Preliminary No growth in Anaerobic bottle after 24 hours. 10/27/20 19:54 POC Glucose 121 H Electrocardiogram Date: 10/28/20 Findings: + NSR @ (81)
[2020-10-28] MEDS ORDERED: LIDOCAINE 1% LOCAL 20 ML VIAL ONE (07:34)
[2020-10-28] MEDS ORDERED: BUPIVACAINE 0.5 % 5 MG/1 ML MPF 30ML VIAL ONE (07:34)
[2020-10-28] MEDS ORDERED: ePHEDrine sulfate 50 MG/ML AMP IV PRN (07:37)
[2020-10-28] MEDS ORDERED: fentaNYL citrate 100 MCG/2 ML VIAL IV PRN (07:37)
[2020-10-28] MEDS ORDERED: ATROPINE SULFATE 0.1 MG/ML 10ML SYR IV PRN (07:37)
[2020-10-28] MEDS ORDERED: ONDANSETRON INJ 2 MG/ML 2 ML VIAL IV PRN (07:37)
[2020-10-28] MEDS ORDERED: VANCOMYCIN HCL 1 GM/270 ML BAG ONE ×2 (07:41→07:43)
--- NOTE | 2020-10-28 07:44 | History & Physical Bridge Note ---
Date of Service October 28, 2020 History & Physical Bridge Note I have examined the patient, reviewed the History & Physical and in the interval since the performance of the History & Physical I have noted the following changes of clinical significance: no changes noted We are planning for irrigation and debridement of a right elbow septic olecranon bursitis. Risks, benefits, and alternatives of surgery were explained in detail. The surgical procedure, as well as postoperative recovery and rehabilitation, was also explained in detail. Risks include bleeding; persistent infection; damage to surrounding structures such as nerves, blood vessels, and tendons that run in the area; persistent pain, weakness, or stiffness; or need for further surgery. The patient understands all of this and wishes to proceed with surgery. Informed consent was obtained.
[2020-10-28] MEDS: VANCOMYCIN HCL 1,500 MG in SODIUM CHLORIDE 0.9% 500 ML IV SCH ×2 (07:47→20:23)
[2020-10-28] MEDS: AMPHETAMINE ASP/SULF/DEXTRAMPH 5 MG TAB PO SCH ×2 (07:47→20:26)
[2020-10-28] MEDS: FOLIC ACID 1 MG TAB PO SCH (07:48)
[2020-10-28] MEDS: CALCIUM 600MG + VIT D 400 IU TAB PO SCH (07:48)
[2020-10-28] MEDS: FLUTICASONE/VILANTEROL 100/25MCG 14 PUFFS/INHALER INH SCH (07:48)
[2020-10-28] MEDS: MULTIVITAMIN TAB PO SCH ×2 (07:48→12:00)
[2020-10-28] MEDS: ASPIRIN 81 MG ECTAB PO SCH (07:48)
[2020-10-28] MEDS: PANTOprazole 40 MG TAB PO SCH (07:48)
[2020-10-28] MEDS: CHOLECALCIFEROL 400 UNITS 10 MCG TAB PO SCH (07:48)
[2020-10-28] MEDS: DOCUSATE SODIUM 100 MG CAP PO SCH ×2 (07:48→20:24)
[2020-10-28] MEDS: POTASSIUM CHLORIDE 10 MEQ TABCR PO SCH ×3 (07:49→20:24)
[2020-10-28] MEDS: SERTRALINE HCL 50 MG TABLET PO SCH (07:49)
[2020-10-28] MEDS: predniSONE 5 MG TAB PO SCH (07:49)
--- NOTE | 2020-10-28 08:56 | Post Operative Brief Note ---
Immediate Post Op Note v1 Date of Surgery October 28, 2020 Pre & Post Diagnosis Operation Date: 10/28/20 07:30 Pre-Op Diagnosis: Septic Olecranon Bursitis of Right Elbow Post-Op Diagnosis: Septic Olecranon Bursitis of Right Elbow I identified the patient and participated in the time-out.: Yes Procedure Operation Date: 10/28/20 07:30 Actual Procedures p Right Septic Olecranon Bursa Incision and Drainage(Right) - Sly Hawkins M.D. Surgeon Sly Hawkins Senior Front End Developer Sam Hale PA-C Estimated Blood Loss 10 Findings Consistent with Post-Op Diagnosis Drains Hemovac Drain
--- NOTE | 2020-10-28 08:59 | Operative Report ---
Post Operative Report Pre & Post Diagnosis Operation Date: 10/28/20 07:30 Pre-Op Diagnosis: Right Elbow Septic Olecranon Bursitis Post-Op Diagnosis: Right Elbow Septic Olecranon Bursitis I identified the patient and participated in the time-out.: Yes Procedure Operation Date: 10/28/20 07:30 Actual Procedures Right elbow irrigation and debridement of septic olecranon bursitis (69805) - Sly Hawkins M.D. Surgeon Sly Hawkins Food Assembler [employer] Sam Hale PA-C Estimated Blood Loss 10 Findings Consistent with Post-Op Diagnosis Specimens Right elbow culture swab for Gram stain, aerobic and anaerobic cultures Drains Medium Hemovac Anesthesia Type General Complications none Disposition Disposition: Recovery Room Indications Ms. Ortega is a 65-year-old female with pain and swelling in the posterior aspect of the right elbow for over a week. She was initially seen by her it integration architect for possible rheumatoid flare, but fluid collection on the posterior aspect of the elbow was aspirated and sent for culture, which came back with MRSA. History, clinical exam, and imaging were consistent with the above diagnosis. Risks, benefits, and alternatives of surgery were explained in detail. The patient understood all this and wished to proceed. Description of Procedure Patient was identified in the preoperative holding area. Operative extremity was marked. Patient was then brought back to the operating room, and general anesthesia was induced without complication. Preoperative antibiotics were held until intraoperative cultures were obtained. Tourniquet was placed on the right upper arm. The arm was then prepped and draped in a standard sterile fashion using chlorhexidine prep. The arm was then exsanguinated with elevation only, and the tourniquet was inflated. Longitudinal incision was made along the posterior aspect of the elbow at the olecranon tip, and I immediately encountered a moderate amount of mostly serous but slightly purulent fluid. The fluid was collected on culture swabs for Gram stain and aerobic and anaerobic cultures. I then inserted a hemostat to break up septations within the septic olecranon bursa. The infected bursa was then aggressively debrided with curette and rongeur. There is a lot of fibrinous material within the olecranon bursa that was aggressively debrided. There was no obvious disruption or infection of the distal triceps insertion into the olecranon, or obvious evidence of osteomyelitis. After thorough debridement, I then copiously irrigated the wound with 6 L of sterile saline via gravity irrigation. Hemovac drain was then placed within the olecranon bursa cavity and brought out through the lateral skin, then sewn in place. Skin incision was loosely closed with 3-0 Prolene. I then anesthetized the wound bed with a 50/50 mixture of 1% lidocaine and 0.5% Marcaine without epinephrine. Sterile dressings were then applied with Xeroform, gauze, ABD pad, and Jass wrap. The drapes were removed, the patient was awakened from anesthesia, and taken to the Post Anesthesia Care Unit in stable condition. There were no immediate complications to the procedure. I was present and scrubbed for the entire procedure. Due to the complex nature of the procedure, the entire surgery was performed with the operational assistance of Sam Hale PA-C. The assistant controller, under direct supervision, was involved in the performance of all aspects of the surgical procedure including patient positioning, tissue retraction, hemostasis, wound closure, and dressing application. I attest to the content of the Intraoperative Record and any orders documented therein. Any exceptions are noted below.
[2020-10-28 09:40] LABS: Hematocrit (blood only) 31.7 % (37-47); Mean Corpuscular Hemoglobin 30.8 pg (25-34); Mean Corpuscular Hgb Conc 31.5 g/dL (32-36); Mean Corpuscular Volume 97.5 fL (80-100); Mean Platelet Volume 10.1 fL (7.4-10.4); Platelet Count 212 K/uL (130-400); RDW Coefficient of Variation 15.6 % (11.5-14.5); RDW Standard Deviation 55.1 fL (36.4-46.3); Red Blood Count 3.25 M/uL (4.2-5.4); White Blood Count 12.54 K/uL (4.8-10.8)
[2020-10-28 09:59] LABS: BUN Creatinine Ratio 14.2 (10-20); Calcium 7.8 mg/dl (8.5-10.1); Creatinine Clr Calc Pharmacy 167.4 ml/min; Est GFR (African American) 135.5 ml/min; Est GFR (Non-African American) 116.9 ml/min; Potassium 4.1 mmol/L (3.5-5.1)
[2020-10-28] MEDS ORDERED: NALOXONE HCL 0.4 MG/1 ML VIAL/CARP IV PRN (10:03)
[2020-10-28] MEDS ORDERED: MAGNESIUM HYDROXIDE SUSP 30 ML UDC PO PRN (10:03)
[2020-10-28] MEDS ORDERED: SODIUM CHLORIDE 0.9% 1000ML 1,000 ML IV SCH (10:03)
--- NOTE | 2020-10-28 10:21 | Anesthesiology Progress Note ---
Date of Service October 28, 2020 Anesthesia Post Procedure Vital Signs Vital Signs: Temp Pulse Pulse Resp BP Pulse Ox 10/28/20 09:40 87 16 135/64 98 10/28/20 09:30 36.2 C L 89 18 138/58 L 94 10/28/20 09:20 88 18 132/80 99 10/28/20 09:10 87 18 160/76 H 100 10/28/20 09:00 36.1 C L 99 H 18 178/84 H 100 10/28/20 07:57 90 18 155/76 H 95 10/28/20 02:23 36.9 C 100 H 18 166/71 H 92 10/27/20 22:27 36.9 C 91 H 18 100/58 L 94 10/27/20 22:19 83 10/27/20 19:45 37.6 C H 90 18 123/65 94 10/27/20 16:16 36.9 C 90 20 105/65 92 10/27/20 15:26 104 H 10/27/20 11:13 36.9 C 84 18 137/70 92 Pain Intensity Right Elbow: Pain Intensity: 9 Transfer of Care Handoff Completed per policy Notes Mental Status: alert / awake / arousable and participated in evaluation Patient Amnestic to Procedure: Yes Nausea / Vomiting: adequately controlled Pain: adequately controlled Airway Patency, RR, SpO2: stable & adequate BP & HR: stable & adequate Hydration State: stable & adequate Anesthetic Complications: no major complications apparent and Pt Satisfied with anesthetic care
--- NOTE | 2020-10-28 12:48 | Hospitalist Progress Note ---
Date of Service October 28, 2020 Assessment & Plan (1) Septic olecranon bursitis of right elbow: (2) Cellulitis of arm, right: Plan: per admitting service notes: This is a 65yo F with a PMH of rheumatoid arthritis, COPD, anxiety and other medical problems listed below who presents with pain and swelling of R elbow x 2 weeks and was sent in for further evaluation and treatment of MRSA olecranon bursitis of R elbow. Outpatient synovial culture grew MRSA On day 4 of Bactrim but cellulitis worsening Afebrile, HR 99, leukocytosis 18.67, ESR 69, CRP 14.5, procal WNL Meets sepsis criteria Initial lactate 2.1, normalized CT R elbow: 1. No acute bony abnormality is identified. 2. Joint effusion. 3. Significant soft tissue edema around the elbow is typical for cellulitis. Clinical correlation will be required. 4. There is an approximately 4 cm crescentic fluid collection posterior to the olecranon process, compatible with the reported history of olecranon bursitis. The sterility of this fluid cannot be evaluated by imaging and clinical correlation will be required. - blood cultures: negative so far s/p Right elbow irrigation and debridement of septic olecranon bursitis ([id number]) - Sly Hawkins M.D. drainage culture: pending -- WBC improving afebrile -- continue IV vancomycin monitor (3) Rheumatoid arthritis: Plan: Follows with Dr. Washington On chronic steroids (continue), PRN [place] and oxycodone for RA Holding Xeljanz and MTX per rheum (4) COPD (chronic obstructive pulmonary disease): Plan: Does not require O2 at baseline, inhalers and nebs PRN (5) Anxiety: Plan: Continue Zoloft, Ativan PRN (6) Diabetes mellitus, type II: Plan: No formal diagnosis, recent a1c 6.6 at beginning of October in setting of chronic steroid use Not on any home medications Diabetic diet while admitted Patient not agreeable to SSI at this time BSG acceptable DVT Ppx: SQ Lovenox Code status: FULL PCP: Pb Admission and Anticipated Discharge Date Admission Date: October 26, 2020 Subjective ff up for septic olecranon bursitis seen resting in bed, sitting up in good spirits s/p Right elbow irrigation and debridement of septic olecranon bursitis ([id number]) - Sly Hawkins M.D. states she feel better today less pain on the r elbow no fever/chills no chest pain, dyspnea, palpitations, dizziness denies other symptoms Review of Systems Review of Systems: all noted and negative except for above Physical Exam Physical Exam: General- oriented x 3, not in distress, speaks in sentences with no effort or accessory muscle use Eyes- anicteric Neck- no JVD Lungs- clear breath sounds bilaterally, no rales/wheezes Heart- normal rate, regular rhythm; no murmurs Abdomen- normal bowel sounds, nondistended, soft, nontender Extremities- no pretibial edema, no calf tenderness right elbow and forearm: (+) dressing in place with drain- scant blood noted less erythme and edema of upper arm and hand Neuro- alert, oriented x 3; no gross focal neurologic deficits Skin- warm & dry Results & Data Results & Data ([facility]) Vital Signs (Past 12 Hours) Vital Signs Temp Pulse Pulse Resp BP Pulse Ox 10/28/20 12:00 36.6 C 83 20 124/69 97 10/28/20 10:03 37.1 C 90 85 18 122/60 94 10/28/20 09:40 87 16 135/64 98 10/28/20 09:30 36.2 C L 89 18 138/58 L 94 10/28/20 09:20 88 18 132/80 99 10/28/20 09:10 87 18 160/76 H 100 10/28/20 09:00 36.1 C L 99 H 18 178/84 H 100 10/28/20 07:57 90 18 155/76 H 95 10/28/20 02:23 36.9 C 100 H 18 166/71 H 92 all noted and reviewed including below
[2020-10-28] MEDS: ROSUVASTATIN CALCIUM 10 MG TAB PO SCH (20:24)
[2020-10-28] MEDS: SENNA 8.6 MG TAB PO SCH (20:24)
[2020-10-29] MEDS: HYDROcodone/ACETAMINOPHEN 10/325 TAB PO PRN ×4 (03:11→20:09)
[2020-10-29] MEDS: NSS + 20MEQ KCL 20 MEQ/1,000 ML BAG IV SCH (05:27)
--- NOTE | 2020-10-29 08:26 | Orthopedic Progress Note ---
Date of Service October 29, 2020 Assessment & Plan (1) Septic olecranon bursitis of right elbow: Plan: POD#1 right elbow I&D Continue IV antibiotics. Continue elevation of the right arm. Dressing changed today as her dressing was falling down. Appears improved from yesterday. Monitor hemovac output, minimal drainage thus far. AM labs pending. Intraop gram stain with WBCs, no organisms. Culture pending. PT/OT-gentle elbow ROM, hand/wrist motion Admission and Anticipated Discharge Date Admission Date: October 26, 2020 Supervising Physician Co-Signing Physician Notes Patient seen and examined. Agree with LADI Hale's note as above. Patient resting comfortably. She notes that her pain is markedly improved compared to preoperatively. She still has some swelling in her hand, but is moving her fingers well. Intraoperative cultures are showing Staphylococcus species; preoperative cultures grew MRSA. Currently receiving IV vancomycin. Minimal drain output; mostly serous fluid in the drain tubing and canister. Plan for dressing change and drain removal tomorrow, then follow clinical course of cellulitis to ensure that it resolves with continued IV antibiotics. Encouraged arm elevation, elbow range of motion, and finger motion to reduce swelling. Subjective POD#1 I&D septic olecranon bursa. She is doing well this morning, minimal pain. No other complaints. Denies chest pain, sob, dizziness, headache, n/v/d. Review of Systems Review of Systems: All systems reviewed & are unremarkable except as noted in Subjective Physical Exam Physical Exam: Right elbow dressing is c/d, was falling down around her forearm. Dressing removed. Improving erythema noted down her arm, no drainage f rom incision, is c/d/i. New dressing applied. Constitutional: well developed and well nourished; no acute distress Results & Data ([facility]) Vital Signs (Past 12 Hours) Vital Signs Temp Pulse Pulse Resp BP BP Pulse Ox 10/29/20 07:00 36.9 C 89 20 97/55 L 91 10/29/20 03:30 36.8 C 92 H 18 113/60 92 10/28/20 22:35 36.7 C 83 18 117/54 L 94 10/28/20 22:20 78
[2020-10-29 09:17] LABS: Basophils # (auto) 0.01 K/uL (0-0.2); Basophils % (auto) 0.1 %; Eosinophils # (auto) 0.33 K/uL (0-0.5); Eosinophils % (auto) 2.8 %; Hematocrit (blood only) 32.9 % (37-47); Hemoglobin 10.3 g/dL (12.0-16.0); Immature Granulocytes # (auto) 0.06 K/uL (0.00-0.02); Immature Granulocytes % (auto) 0.5 %; Lymphocytes # (auto) 0.59 K/uL (1.2-3.4); Mean Corpuscular Hemoglobin 31.2 pg (25-34); Mean Corpuscular Hgb Conc 31.3 g/dL (32-36); Mean Corpuscular Volume 99.7 fL (80-100); Mean Platelet Volume 10.3 fL (7.4-10.4); Monocytes # (auto) 1.42 K/uL (0.11-0.59); Monocytes % (auto) 12.1 %; Neutrophils # (auto) 9.32 K/uL (1.4-6.5); Neutrophils % (auto) 79.5 %; Platelet Count 239 K/uL (130-400); RDW Coefficient of Variation 15.5 % (11.5-14.5); RDW Standard Deviation 56.2 fL (36.4-46.3); White Blood Count 11.73 K/uL (4.8-10.8)
[2020-10-29] MEDS: VANCOMYCIN HCL 1,500 MG in SODIUM CHLORIDE 0.9% 500 ML IV SCH ×2 (09:23→20:54)
[2020-10-29] MEDS: CALCIUM 600MG + VIT D 400 IU TAB PO SCH (09:24)
[2020-10-29] MEDS: PANTOprazole 40 MG TAB PO SCH (09:25)
[2020-10-29] MEDS: ASPIRIN 81 MG ECTAB PO SCH (09:25)
[2020-10-29] MEDS: MULTIVITAMIN TAB PO SCH (09:26)
[2020-10-29] MEDS: CHOLECALCIFEROL 400 UNITS 10 MCG TAB PO SCH (09:26)
[2020-10-29] MEDS: FOLIC ACID 1 MG TAB PO SCH (09:27)
[2020-10-29] MEDS: SERTRALINE HCL 50 MG TABLET PO SCH ×2 (09:27→09:33)
[2020-10-29] MEDS: DOCUSATE SODIUM 100 MG CAP PO SCH ×2 (09:28→21:07)
[2020-10-29] MEDS: POTASSIUM CHLORIDE 10 MEQ TABCR PO SCH ×4 (09:28→21:08)
[2020-10-29] MEDS: FLUTICASONE/VILANTEROL 100/25MCG 14 PUFFS/INHALER INH SCH (09:29)
[2020-10-29] MEDS: AMPHETAMINE ASP/SULF/DEXTRAMPH 5 MG TAB PO SCH ×2 (09:31→21:05)
[2020-10-29] MEDS: predniSONE 5 MG TAB PO SCH (09:31)
[2020-10-29 09:36] LABS: BUN Creatinine Ratio 8.7 (10-20); Calcium 8.1 mg/dl (8.5-10.1); Creatinine Clr Calc Pharmacy 132.4 ml/min; Est GFR (African American) 125.5 ml/min; Est GFR (Non-African American) 108.2 ml/min; Potassium 3.8 mmol/L (3.5-5.1)
--- NOTE | 2020-10-29 13:19 | Hospitalist Progress Note ---
Date of Service October 29, 2020 Assessment & Plan (1) Septic olecranon bursitis of right elbow: (2) Cellulitis of arm, right: Plan: per admitting service notes: This is a 65yo F with a PMH of rheumatoid arthritis, COPD, anxiety and other medical problems listed below who presents with pain and swelling of R elbow x 2 weeks and was sent in for further evaluation and treatment of MRSA olecranon bursitis of R elbow. Outpatient synovial culture grew MRSA On day 4 of Bactrim but cellulitis worsening Afebrile, HR 99, leukocytosis 18.67, ESR 69, CRP 14.5, procal WNL Meets sepsis criteria Initial lactate 2.1, normalized CT R elbow: 1. No acute bony abnormality is identified. 2. Joint effusion. 3. Significant soft tissue edema around the elbow is typical for cellulitis. Clinical correlation will be required. 4. There is an approximately 4 cm crescentic fluid collection posterior to the olecranon process, compatible with the reported history of olecranon bursitis. The sterility of this fluid cannot be evaluated by imaging and clinical correlation will be required. - blood cultures: negative so far s/p Right elbow irrigation and debridement of septic olecranon bursitis ([id number]) - Sly Hawkins M.D. drainage culture: Staph species -- WBC improving afebrile -- continue IV vancomycin monitor -- follow ortho recommendations (3) Rheumatoid arthritis: Plan: Follows with Dr. Washington On chronic steroids (continue), PRN [place] and oxycodone for RA Holding Xeljanz and MTX per rheum (4) COPD (chronic obstructive pulmonary disease): Plan: Does not require O2 at baseline, inhalers and nebs PRN (5) Anxiety: Plan: Continue Zoloft, Ativan PRN (6) Diabetes mellitus, type II: Plan: No formal diagnosis, recent a1c 6.6 at beginning of October in setting of chronic steroid use Not on any home medications Diabetic diet while admitted Patient not agreeable to SSI at this time BSG acceptable DVT Ppx: SQ Lovenox Code status: FULL PCP: Pb Admission and Anticipated Discharge Date Admission Date: October 26, 2020 Subjective ff up for r olecranon bursitis states she feels improved today less pain on the r arm no chest pain, dyspnea, palpitations, dizziness no fever/chills no other symptoms Review of Systems Review of Systems: all noted and negative except for above Physical Exam Physical Exam: General- oriented x 3, not in distress, speaks in sentences with no effort or accessory muscle use Eyes- anicteric Neck- no JVD Lungs- clear BS BL Heart- normal rate, regular rhythm; no murmurs Abdomen- normal bowel sounds, nondistended, soft, nontender Extremities- no pretibial edema, no calf tenderness R arm- dressing in placed, hemovac in place edema of the r hand resolved upper arm erythema also improving Neuro- alert, oriented x 3; no gross focal neurologic deficits Skin- warm & dry Results & Data Results & Data ([facility]) Vital Signs (Past 12 Hours) Vital Signs Temp Pulse Pulse Resp BP BP Pulse Ox 10/29/20 11:31 36.9 C 82 20 102/61 91 10/29/20 08:00 97 H 10/29/20 07:00 36.9 C 89 20 97/55 L 91 10/29/20 03:30 36.8 C 92 H 18 113/60 92 all noted and reviewed including below
[2020-10-29] MEDS: oxyCODONE HCL IR 5 MG TAB (IMMEDIATE RELEASE) PO PRN (16:06)
[2020-10-29] MEDS ORDERED: VANCOMYCIN TROUGH ONE (19:30)
[2020-10-29] MEDS: SENNA 8.6 MG TAB PO SCH (21:08)
[2020-10-29] MEDS: ROSUVASTATIN CALCIUM 10 MG TAB PO SCH (21:09)
--- NOTE | 2020-10-29 21:09 | Pharmacy Report ---
Pharmacy Vanc AUC Short Note - Date of Service October 29, 2020 - Assessment & Plan Assessment 65 year old F receiving vancomycin for treatment of MRSA bursitis. Pertinent microbiologic data includes: culture growing MRSA (collected prior to admission). Renal function stable. Blood cultures- NGTD. R elbow fluid culture positive Staph species. Vancomycin trough drawn this evening was ~ a 10hr steady state level. Day # 4 of antimicrobial therapy. Plan Vancomycin * AUC/ANTELMO is the preferred PK/PD target for vancomycin * AUC guided dosing is effective and associated with decreased risk of nephrotoxicity compared to traditional trough targets * Trough level of 12.3mcg/mL is predicted to achieve target AUC/ANTELMO of 400-600 mg/L.hr and may be associated with a 7 % risk of nephrotoxicity * Continue dose of 1500 mg IV every 12hours * Repeat trough in 2-3 days or sooner if clinically indicated. Pharmacy will continue to follow and will adjust dose/frequency as necessary. Thank you.
[2020-10-30] MEDS: HYDROcodone/ACETAMINOPHEN 10/325 TAB PO PRN ×5 (00:19→21:09)
[2020-10-30] MEDS: NSS + 20MEQ KCL 20 MEQ/1,000 ML BAG IV SCH ×2 (01:38→12:26)
[2020-10-30] MEDS: oxyCODONE HCL IR 5 MG TAB (IMMEDIATE RELEASE) PO PRN ×2 (03:18→23:20)
[2020-10-30] MEDS: ASPIRIN 81 MG ECTAB PO SCH (08:01)
[2020-10-30] MEDS: CALCIUM 600MG + VIT D 400 IU TAB PO SCH (08:01)
[2020-10-30] MEDS: FOLIC ACID 1 MG TAB PO SCH (08:02)
[2020-10-30] MEDS: CHOLECALCIFEROL 400 UNITS 10 MCG TAB PO SCH (08:02)
[2020-10-30] MEDS: DOCUSATE SODIUM 100 MG CAP PO SCH ×2 (08:02→21:10)
[2020-10-30] MEDS: PANTOprazole 40 MG TAB PO SCH (08:03)
[2020-10-30] MEDS: MULTIVITAMIN TAB PO SCH (08:03)
[2020-10-30] MEDS: POTASSIUM CHLORIDE 10 MEQ TABCR PO SCH ×3 (08:03→21:11)
[2020-10-30] MEDS: predniSONE 5 MG TAB PO SCH (08:04)
[2020-10-30] MEDS: FLUTICASONE/VILANTEROL 100/25MCG 14 PUFFS/INHALER INH SCH (08:05)
[2020-10-30] MEDS: VANCOMYCIN HCL 1,500 MG in SODIUM CHLORIDE 0.9% 500 ML IV SCH (08:14)
[2020-10-30] MEDS: SERTRALINE HCL 50 MG TABLET PO SCH (08:15)
[2020-10-30] MEDS: AMPHETAMINE ASP/SULF/DEXTRAMPH 5 MG TAB PO SCH ×2 (08:15→21:09)
--- NOTE | 2020-10-30 09:16 | Electrocardiogram Report ---
Test Reason : Blood Pressure : / mmHG Vent. Rate : 095 BPM Atrial Rate : 095 BPM P-R Int : 130 ms QRS Dur : 082 ms QT Int : 336 ms P-R-T Axes : 075 081 060 degrees QTc Int : 422 ms Normal sinus rhythm Normal ECG No previous ECGs available Confirmed by Gaston Vargas ([id number]) on 10/30/2020 9:15:57 AM Referred By: Gonzalez Chandler Confirmed By:Gaston Vargas
[2020-10-30 09:42] LABS: Creatinine Clr Calc Pharmacy 172.6 ml/min; Est GFR (African American) 136.9 ml/min; Est GFR (Non-African American) 118.1 ml/min
--- NOTE | 2020-10-30 10:09 | Orthopedic Progress Note ---
Date of Service October 30, 2020 Assessment & Plan (1) Septic olecranon bursitis of right elbow: Plan: POD#2 right elbow I&D Continue IV antibiotics. Continue elevation of the right arm. Daily dressing changes. Will order sling for comfort. Culture showing MRSA. PT/OT-gentle elbow ROM, hand/wrist motion; increase mobility. No further surgery needed. Orthopedics will sign off at this time. Instructions will be placed in the discharge instructions section. Admission and Anticipated Discharge Date Admission Date: October 26, 2020 Supervising Physician Co-Signing Physician Notes Patient seen and examined. Agree with LADI Mac's note as above. Patient's right arm appears much improved compared to preoperatively. Swelling, erythema, and pain have all markedly improved. Still mild diffuse swelling in the forearm and hand; I think this will subside with time, elevation, and increased use of the hand. Dressings were taken down and changed. No active drainage from the wound. The olecranon bursa looks well decompressed. Intraoperative culture results were reviewed. They show MRSA, sensitive to Bactrim. I think at this point to be safe to transition her to oral Bactrim for outpatient use. It sounds like the medicine team is keeping her in-house for now for some bilateral lower extremity swelling. She is currently getting Lasix. DVT ultrasound was negative for acute DVT. She may be discharged from an orthopedic perspective. Follow-up with me in orthopedic surgery clinic 10 to 14 days after surgery. Please call [facility] at [phone] to make an appointment. Subjective Postop day 2 Patient sitting up in her chair. No complaints this morning. Pain controlled. Pt did mention increase in fluid retention in her LE's. She will discuss with Med Service. Physical Exam Physical Exam: Dressings removed. Hemovac discontinued. Her wound is benign. Minimal drainage noted. Her erythema is markedly improved since I last saw her prior to the weekend. She has less swelling in the forearm as well and less swelling in the dorsum of the hand. She is able to take her wrist through active range of motion without difficulty. She is able to go through gentle range of motion of the right elbow with less pain noted. Cap refills less than 2 seconds. Sensation is intact. Results & Data ([facility]) Vital Signs (Past 12 Hours) Vital Signs Temp Pulse Pulse Resp BP BP Pulse Ox 10/30/20 08:07 36.8 C 79 18 110/56 L 91 10/30/20 07:00 87 10/30/20 04:08 36.7 C 78 18 104/61 93 10/29/20 23:31 36.9 C 94 H 18 108/69 92 10/29/20 22:24 85
[2020-10-30] MEDS ORDERED: FUROSEMIDE 40 MG in SYRINGE 0 ML IV STA (12:20)
[2020-10-30] MEDS ORDERED: XOPENEX/ATROVENT 1.25mg/0.5MG NEB COMBO NEB SCH (12:25)
--- NOTE | 2020-10-30 12:44 | XRay Report ---
XR chest 1V portable CLINICAL HISTORY: hypoxia COMPARISON STUDY: No previous studies for comparison. FINDINGS: Lung volumes are normal. Lungs are clear. There is no pneumothorax or pleural effusion. Car diac size is normal. Mediastinal contours are normal. There is pulmonary vascular congestion without overt pulmonary edema. IMPRESSION: Vascular congestion without overt pulmonary edema. ACT 112: Negative or not required by law. Electronically signed by: Miller Sandoval M.D. 10/30/2020 12:43 PM
[2020-10-30] MEDS: IPRATROPIUM BROMIDE NEB SOLN 0.02% 2.5 ML VIAL INH SCH ×2 (13:15→19:17)
[2020-10-30] MEDS: LEVALBUTEROL 1.25MG/0.5ML NEB INH SCH ×2 (13:15→19:17)
--- NOTE | 2020-10-30 15:24 | Ultrasound Report ---
BILATERAL LOWER EXTREMITY VENOUS DOPPLER HISTORY: leg swelling, s/p surgery, r/o dvt COMPARISON STUDY: None. FINDINGS: There is normal compressibility, flow, and augmentation within the right lower extremity de ep venous system. Linear echogenic focus within the left superficial femoral vein which is incomplete ly compressible consistent with chronic thrombus. Otherwise, the remaining left lower extremity deep venous system is widely patent.. IMPRESSION: 1. Chronic nonocclusive DVT within the left superficial femoral vein. 2. No acute DVT within the right or left lower extremity. ACT 112: Negative or not required by law. Electronically signed by: Joe Hughes M.D. 10/30/2020 3:23 PM
[2020-10-30] MEDS: ENOXAPARIN INJ 40 MG/0.4 ML SYR SQ SCH (15:41)
[2020-10-30] MEDS: DOXYCYCLINE HYCLATE 100 MG CAP PO SCH (18:54)
--- NOTE | 2020-10-30 19:09 | Hospitalist Progress Note ---
Date of Service October 30, 2020 Assessment & Plan (1) Septic olecranon bursitis of right elbow: (2) Cellulitis of arm, right: Plan: per admitting service notes: This is a 65yo F with a PMH of rheumatoid arthritis, COPD, anxiety and other medical problems listed below who presents with pain and swelling of R elbow x 2 weeks and was sent in for further evaluation and treatment of MRSA olecranon bursitis of R elbow. Outpatient synovial culture grew MRSA On day 4 of Bactrim but cellulitis worsening Afebrile, HR 99, leukocytosis 18.67, ESR 69, CRP 14.5, procal WNL Meets sepsis criteria Initial lactate 2.1, normalized CT R elbow: 1. No acute bony abnormality is identified. 2. Joint effusion. 3. Significant soft tissue edema around the elbow is typical for cellulitis. Clinical correlation will be required. 4. There is an approximately 4 cm crescentic fluid collection posterior to the olecranon process, compatible with the reported history of olecranon bursitis. The sterility of this fluid cannot be evaluated by imaging and clinical correlation will be required. - blood cultures: negative so far s/p Right elbow irrigation and debridement of septic olecranon bursitis (02076) - Sly Hawkins M.D. drainage culture: MRSA -- WBC improving afebrile --Transition from IV vancomycin to p.o. doxycycline monitor -- follow ortho recommendations Volume overload With hypoxia --Chest x-ray: Positive vascular congestion DC IV fluids and IV vancomycin Lasix 40 mg IV given Nebs 3 times daily Leg ultrasound: No acute DVT, positive chronic DVT on the left superficial femoral vein Lovenox 40 mg subcutaneous for DVT prophylax (3) Rheumatoid arthritis: Plan: Follows with Dr. Washington On chronic steroids (continue), PRN [place] and oxycodone for RA Holding Xeljanz and MTX per rheum (4) COPD (chronic obstructive pulmonary disease): Plan: Does not require O2 at baseline, inhalers and nebs PRN (5) Anxiety: Plan: Continue Zoloft, Ativan PRN (6) Diabetes mellitus, type II: Plan: No formal diagnosis, recent a1c 6.6 at beginning of October in setting of chronic steroid use Not on any home medications Diabetic diet while admitted Patient not agreeable to SSI at this time BSG acceptable DVT Ppx: SQ Lovenox Code status: FULL PCP: Pb Anticipate discharge to home when medically stable Admission and Anticipated Discharge Date Admission Date: October 26, 2020 Subjective Follow-up for septic right olecranon bursitis, etc. next Notified by RN that patient is hypoxic at 85% after walking to the bathroom Immediately seen at bedside, patient on 2 L of oxygen via nasal cannula Not in distress, but does report dyspnea on exertion Denies chest pain, palpitations, dizziness abdominal pain, nausea vomiting, fevers or chills Right arm feels much better No other symptoms Review of Systems Review of Systems: all noted and negative except for above Physical Exam Physical Exam: General- oriented x 3, not in distress, speaks in sentences with no effort or accessory muscle use Eyes- anicteric Neck- no JVD Lungs-positive mild rales bilaterally at the bases, no wheezing, good air entry bilateral Heart- normal rate, regular rhythm; no murmurs Abdomen- normal bowel sounds, nondistended, soft, nontender Extremities- no pretibial edema, no calf tenderness Right arm: Dressing in place, edema of the upper arm and hand resolved, minimal erythema Neuro- alert, oriented x 3; no gross focal neurologic deficits Skin- warm & dry Results & Data Results & Data ([facility]) Vital Signs (Past 12 Hours) Vital Signs Temp Pulse Pulse Resp BP BP Pulse Ox 10/30/20 15:55 85 10/30/20 15:47 36.5 C 84 18 122/70 95 10/30/20 13:15 112 H 18 95 10/30/20 12:00 10/30/20 11:37 36.6 C 89 16 142/76 H 90 10/30/20 08:07 36.8 C 79 18 110/56 L 91 Pulse Ox 10/30/20 15:55 10/30/20 15:47 10/30/20 13:15 10/30/20 12:00 96 10/30/20 11:37 10/30/20 08:07 all noted and reviewed including below
[2020-10-30] MEDS: SENNA 8.6 MG TAB PO SCH (21:10)
[2020-10-30] MEDS: ROSUVASTATIN CALCIUM 10 MG TAB PO SCH (21:10)
[2020-10-31] MEDS: HYDROcodone/ACETAMINOPHEN 10/325 TAB PO PRN ×3 (02:07→14:30)
[2020-10-31] MEDS: DOXYCYCLINE HYCLATE 100 MG CAP PO SCH (06:26)
[2020-10-31] MEDS: IPRATROPIUM BROMIDE NEB SOLN 0.02% 2.5 ML VIAL INH SCH ×2 (07:17→13:18)
[2020-10-31] MEDS: LEVALBUTEROL 1.25MG/0.5ML NEB INH SCH ×2 (07:17→13:19)
[2020-10-31] MEDS: MULTIVITAMIN TAB PO SCH (10:17)
[2020-10-31] MEDS: ASPIRIN 81 MG ECTAB PO SCH (10:17)
[2020-10-31] MEDS: AMPHETAMINE ASP/SULF/DEXTRAMPH 5 MG TAB PO SCH (10:17)
[2020-10-31] MEDS: CALCIUM 600MG + VIT D 400 IU TAB PO SCH (10:17)
[2020-10-31] MEDS: FOLIC ACID 1 MG TAB PO SCH (10:18)
[2020-10-31] MEDS: PANTOprazole 40 MG TAB PO SCH (10:18)
[2020-10-31] MEDS: predniSONE 5 MG TAB PO SCH (10:18)
[2020-10-31] MEDS: CHOLECALCIFEROL 400 UNITS 10 MCG TAB PO SCH (10:18)
[2020-10-31] MEDS: DOCUSATE SODIUM 100 MG CAP PO SCH (10:18)
[2020-10-31] MEDS: SERTRALINE HCL 50 MG TABLET PO SCH (10:19)
[2020-10-31] MEDS: POTASSIUM CHLORIDE 10 MEQ TABCR PO SCH (10:20)
[2020-10-31] MEDS: FLUTICASONE/VILANTEROL 100/25MCG 14 PUFFS/INHALER INH SCH (10:22)
[2020-10-31] MEDS: oxyCODONE HCL IR 5 MG TAB (IMMEDIATE RELEASE) PO PRN (10:36)
[2020-10-31 10:39] LABS: Basophils # (auto) 0.01 K/uL (0-0.2); Basophils % (auto) 0.1 %; Eosinophils # (auto) 0.25 K/uL (0-0.5); Eosinophils % (auto) 1.9 %; Hematocrit (blood only) 31.7 % (37-47); Immature Granulocytes # (auto) 0.06 K/uL (0.00-0.02); Immature Granulocytes % (auto) 0.5 %; Lymphocytes # (auto) 1.15 K/uL (1.2-3.4); Lymphocytes % (auto) 8.7 %; Mean Corpuscular Hemoglobin 30.7 pg (25-34); Mean Corpuscular Hgb Conc 31.5 g/dL (32-36); Mean Corpuscular Volume 97.2 fL (80-100); Monocytes # (auto) 1.02 K/uL (0.11-0.59); Monocytes % (auto) 7.7 %; Neutrophils # (auto) 10.76 K/uL (1.4-6.5); Neutrophils % (auto) 81.1 %; Platelet Count 272 K/uL (130-400); RDW Coefficient of Variation 15.3 % (11.5-14.5); RDW Standard Deviation 54.3 fL (36.4-46.3); Red Blood Count 3.26 M/uL (4.2-5.4); White Blood Count 13.25 K/uL (4.8-10.8)
[2020-10-31 11:11] LABS: BUN Creatinine Ratio 3.2 (10-20); Calcium 8.4 mg/dl (8.5-10.1); Creatinine Clr Calc Pharmacy 121.2 ml/min; Est GFR (African American) 121.8 ml/min; Est GFR (Non-African American) 105.1 ml/min; Potassium 3.2 mmol/L (3.5-5.1)
[2020-10-31] MEDS ORDERED: POTASSIUM CHLORIDE CRTAB 20 MEQ TABCR PO STA (11:21)
[2020-10-31 12:00] VITALS: BP 127/59; TEMP 98.1; O2SAT 94
--- NOTE | 2020-10-31 13:57 | Hospitalist Progress Note ---
Date of Service October 31, 2020 delayed entry date of service noted above Assessment & Plan (1) Septic olecranon bursitis of right elbow: (2) Cellulitis of arm, right: Plan: per admitting service notes: This is a 65yo F with a PMH of rheumatoid arthritis, COPD, anxiety and other medical problems listed below who presents with pain and swelling of R elbow x 2 weeks and was sent in for further evaluation and treatment of MRSA olecranon bursitis of R elbow. Outpatient synovial culture grew MRSA On day 4 of Bactrim but cellulitis worsening Afebrile, HR 99, leukocytosis 18.67, ESR 69, CRP 14.5, procal WNL Meets sepsis criteria Initial lactate 2.1, normalized CT R elbow: 1. No acute bony abnormality is identified. 2. Joint effusion. 3. Significant soft tissue edema around the elbow is typical for cellulitis. Clinical correlation will be required. 4. There is an approximately 4 cm crescentic fluid collection posterior to the olecranon process, compatible with the reported history of olecranon bursitis. The sterility of this fluid cannot be evaluated by imaging and clinical correlation will be required. - blood cultures: negative so far s/p Right elbow irrigation and debridement of septic olecranon bursitis (96329) - Sly Hawkins M.D. drainage culture: MRSA -- WBC improving afebrile --Transition from IV vancomycin to p.o. doxycycline x 6 more days to complete 10 day course monitor -- follow ortho recommendations Volume overload With hypoxia --Chest x-ray: Positive vascular congestion DC IV fluids and IV vancomycin Lasix 40 mg IV given Nebs 3 times daily Leg ultrasound: No acute DVT, positive chronic DVT on the left superficial femoral vein --- resolved (3) Rheumatoid arthritis: Plan: Follows with Dr. Washington On chronic steroids (continue), PRN [place] and oxycodone for RA Holding Xeljanz and MTX per rheum (4) COPD (chronic obstructive pulmonary disease): Plan: Does not require O2 at baseline, inhalers and nebs PRN (5) Anxiety: Plan: Continue Zoloft, Ativan PRN (6) Diabetes mellitus, type II: Plan: No formal diagnosis, recent a1c 6.6 at beginning of October in setting of chronic steroid use Not on any home medications Diabetic diet while admitted Patient not agreeable to SSI at this time BSG acceptable Disposition d/c home ff up with PCP in 1 week Admission and Anticipated Discharge Date Admission Date: October 26, 2020 Subjective ff up for r olecranon bursitis, etc seen sitting up in bed, comfortable states she feels better overall no dyspnea with exertion or at rest no chest pain, dyspnea, palpitations, dizziness r elbow much better states she is ready and would like to go home today Review of Systems Review of Systems: all noted and negative except for above Physical Exam Physical Exam: General- oriented x 3, not in distress, speaks in sentences with no effort or accessory muscle use Eyes- anicteric Neck- no JVD Lungs- clear BS BL no rales no wheezing Heart- normal rate, regular rhythm; no murmurs Abdomen- normal bowel sounds, nondistended, soft, nontender Extremities- no pretibial edema, no calf tenderness r upper extremity: no edema, warmth, tenderness Neuro- alert, oriented x 3; no gross focal neurologic deficits Skin- warm & dry Results & Data Results & Data ([facility]) Vital Signs (Past 12 Hours) Vital Signs Temp Pulse Pulse Pulse Pulse Pulse Pulse 10/31/20 11:59 36.7 C 86 10/31/20 09:31 117 H 114 H 78 10/31/20 08:00 36.9 C 79 86 10/31/20 07:17 92 H 10/31/20 03:45 36.9 C 83 Resp Resp Resp Resp BP Pulse Ox Pulse Ox 10/31/20 11:59 19 127/59 L 94 10/31/20 09:31 20 20 16 91 10/31/20 08:00 17 104/59 L 93 10/31/20 07:17 16 93 10/31/20 03:45 20 105/57 L 94 Pulse Ox Pulse Ox 10/31/20 11:59 10/31/20 09:31 92 90 10/31/20 08:00 10/31/20 07:17 10/31/20 03:45 all noted and reviewed including below
[2020-10-31 14:20] VITALS: PULSE 92
--- NOTE | 2020-11-01 14:51 | Discharge Summary ---
Date of Service November 01, 2020 Admission HPI Per Admitting Provider This is a 65yo F with a PMH of rheumatoid arthritis, COPD, anxiety and other medical problems listed below who presents with pain and swelling of R elbow x 2 weeks. Does not remember a bite or trauma to elbow. Initially thought pain was due to RA flare and completed medrol dose pack. Saw Dr. Chandler on Friday who was concerned for septic olecranon bursitis and did joint aspiration. Was started on Bactrim at that time. Synovial culture grew MRSA. Patient has continued to experience worsening R elbow pain and swelling in the past few days despite antibiotic therapy. Redness now extending down forarm as well. Warm to touch. Was seen for follow up with rheumatology earlier today and directed to ER for IV antibiotics and orthopedic evaluation. Endorses low grade fever. No chills. Reduced ROM due to pain. Denies lightheadedness, headache, chest pain, SOB, nausea, vomiting, abdominal pain, dysuria, diarrhea or constipation. Holding Xeljanz and MTX per rheum. Admission Exam Per Admitting Provider Physical Exam: Vitals signs as noted above General Appearance:Moderately built and nourished, no apparent distress Head: normocephalic, Atraumatic Eyes: normal inspection, EOMI Neck: supple, Trachea midline Respiratory/Chest: Decreased breath sounds, CTA, No accessory muscle use Cardiovascular: S1, S2, No murmur Abdomen/GI:Soft, Non tender, Bowel sounds present Extremities/Musculoskeletal:normal inspection, no edema, right elbow on decreased ROM, warm, erythematous, tender. Neurologic/Psych:AAOX3, grossly no focal neurological deficits Skin: normal color, warm Principal Diagnosis Right Olecranon Bursitis, MRSA Discharge Exam General- oriented x 3, not in distress, speaks in sentences with no effort or accessory muscle use Eyes- anicteric Neck- no JVD Lungs- clear BS BL no rales no wheezing Heart- normal rate, regular rhythm; no murmurs Abdomen- normal bowel sounds, nondistended, soft, nontender Extremities- no pretibial edema, no calf tenderness r upper extremity: no edema, warmth, tenderness Neuro- alert, oriented x 3; no gross focal neurologic deficits Skin- warm & dry Discharge Data Allergies Allergy/AdvReac Type Severity Reaction Status Date / Time No Known Allergies Allergy Unverified 10/26/20 10:11 Consultations 10/26/20 10:45 ED Decision to Admit Stat 10/26/20 13:28 Consult Orthopedic Surgery Routine Procedures Performed Operation Date: 10/28/20 07:30 Actual Procedures p Right Septic Olecranon Bursa Incision and Drainage(Right) - Sly Hawkins M.D. Ordered Studies 10/26/20 10:56 CT elbow RT wo/w con Routine FINDINGS: The skeletal structures are osteopenic. There is no evidence of fracture. No bony erosion or periostitis is identified. The joint spaces of the elbow are maintained. There is a joint effusion. Significant soft tissue edema is present around the elbow, greatest dorsally. No soft tissue gas is seen. A crescentic fluid collection is seen posterior to the olecranon process and measures approximately 4 x 0.7 x 4 cm. This is consistent with olecranon bursitis. The sterility of this fluid cannot be evaluated by CT. The regional musculature is normal in appearance. The regional vessels are patent. IMPRESSION: 1. No acute bony abnormality is identified. 2. Joint effusion. 3. Significant soft tissue edema around the elbow is typical for cellulitis. Clinical correlation will be required. 4. There is an approximately 4 cm crescentic fluid collection posterior to the olecranon process, compatible with the reported history of olecranon bursitis. The sterility of this fluid cannot be evaluated by imaging and clinical correlation will be required. 10/30/20 13:00 US venous doppler LE Stat FINDINGS: There is normal compressibility, flow, and augmentation within the right lower extremity deep venous system. Linear echogenic focus within the left superficial femoral vein which is incompletely compressible consistent with chronic thrombus. Otherwise, the remaining left lower extremity deep venous system is widely patent.. IMPRESSION: 1. Chronic nonocclusive DVT within the left superficial femoral vein. 2. No acute DVT within the right or left lower extremity. Hospital Course (1) Septic olecranon bursitis of right elbow: (2) Cellulitis of arm, right: per admitting service notes: This is a 65yo F with a PMH of rheumatoid arthritis, COPD, anxiety and other medical problems listed below who presents with pain and swelling of R elbow x 2 weeks and was sent in for further evaluation and treatment of MRSA olecranon bursitis of R elbow. Outpatient synovial culture grew MRSA On day 4 of Bactrim but cellulitis worsening Afebrile, HR 99, leukocytosis 18.67, ESR 69, CRP 14.5, procal WNL Meets sepsis criteria Initial lactate 2.1, normalized CT R elbow: 1. No acute bony abnormality is identified. 2. Joint effusion. 3. Significant soft tissue edema around the elbow is typical for cellulitis. Clinical correlation will be required. 4. There is an approximately 4 cm crescentic fluid collection posterior to the olecranon process, compatible with the reported history of olecranon bursitis. The sterility of this fluid cannot be evaluated by imaging and clinical correlation will be required. - blood cultures: negative so far s/p Right elbow irrigation and debridement of septic olecranon bursitis (96405) - Sly Hawkins M.D. drainage culture: MRSA -- WBC improving afebrile --Transition from IV vancomycin to p.o. doxycycline x 6 more days to complete 10 day course -- follow up with Ortho in 1 week Volume overload With hypoxia -- developed the day before hospital discharge --Chest x-ray: Positive vascular congestion DC IV fluids and IV vancomycin Lasix 40 mg IV given Nebs 3 times daily Leg ultrasound: No acute DVT, positive chronic DVT on the left superficial femoral vein --- resolved (3) Rheumatoid arthritis: Follows with Dr. Washington On chronic steroids (continue), PRN [place] and oxycodone for RA Holding Xeljanz and MTX per rheum (4) COPD (chronic obstructive pulmonary disease): Does not require O2 at baseline, inhalers and nebs PRN (5) Anxiety: Continue Zoloft, Ativan PRN (6) Diabetes mellitus, type II: No formal diagnosis, recent a1c 6.6 at beginning of October in setting of chronic steroid use Not on any home medications Diabetic diet while admitted Patient not agreeable to SSI at this time BSG acceptable Disposition d/c home ff up with PCP in 1 week plan of care discussed with patient in detail and at length all questions answered she is understanding, agreeable, comfortable with the plan of care Total Time Total Time Spent Total Time Spent (In Minutes): > 30 minutes Discharge Plan Discharge Items Patient Disposition: Home - Self-Care Reason For Visit: MRSA OLECRANON BURSITIS Discharge Diagnosis: Right olecranon bursitis, MRSA Activity: Resume your previous activity Activity Comment: Follow orthopedic service recommendations Exercise/Sports: Wait until after follow-up appointment Weightbearing: Right non-weightbearing Non-emergency contact: Primary Care Provider and Surgeon Call non-emergency contact if: you have any medication questions, your symptoms worsen, your pain is not controlled, your pain is worsening, your pain is unusual for you, your pain is concerning for you, you have a fever, your temperature is above 101.5, your wound has increased redness and your wound has increased drainage Follow-up/Referrals: Sly Hawkins M.D. [Physician] - (Follow up appointment in 10-14 days from the day of surgery. ) Carlos Ambriz DO [Primary Care Provider] - (Date & Time 11/02/2020 10:20 AM Provider Carlos Ambriz DO Department [facility] ) Diet: Heart Healthy Demetrio Attending Provider Instructions: Please review new medication list and follow instructions carefully. Your new medication is doxycycline-antibiotic for infection of the right elbow. Hold Xeljanz and methotrexate for now as per instructions by Dr. Verde. Please discuss with Dr. Verde as to when you can resume these medications. Always ambulate frequently to prevent blood clots. Eat yogurt daily for 2 weeks. Always stay well-hydrated. Call primary care physician or your surgeon, or return to the emergency room immediately if with worsening of symptoms, Including increased redness, swelling, pain on your elbow and right upper arm, fever, Increasing swelling, pain in your legs, or shortness of breath. Follow-up with primary care physician as outlined above. Follow-up with orthopedic surgeon as outlined above. Addtl Head Loader Provider Instructions: Change your dressing daily. You can use 4 x 4 gauze, Adaptic nonstick dressing, Kerlix wrap, and Jsas wrap. You can protect the elbow with increased padding with the use of ABD pads. You may get the wound wet starting on 11/01/2020. Do not soak the wound. No tub baths. No direct shower pressure on the wound itself. Clean around the wound with a mild soap and pat dry. If you have moderate drainage, hold off from getting the wound wet until drainage stops. Gentle range of motion exercises of the elbow are allowed. No lifting with the right arm. Nothing more than a glass of water at this time. Follow up with Dr. Hawkins in 10-14 days from the day of your surgery. Please call for an appointment. [phone] Pending Studies at Discharge: No Stand-Alone Forms: [facility], Work/School Release, Smoking Cessation Medications and DC Order Prescriptions: New doxycycline hyclate 100 mg Capsule 100 mg PO BID@0700,1900 6 Days Qty: 12 RF: 0 Continued multivitamin Tablet 1 tab PO QAM RF: 0 dextroamphetamine-amphetamine 7.5 mg tablet 7.5 mg PO BID RF: 0 potassium chloride 10 mEq capsule, extended release 10 meq PO TID RF: 0 ipratropium-albuterol 0.5 mg-3 mg(2.5 mg base)/3 mL solution for nebulization 3 ml INHALATION Q4H PRN (Reason: SOB) RF: 0 lisinopril 20 mg tablet 20 mg PO QAM RF: 0 calcium carbonate-vitamin D3 [Calcium 600 + D(3)] 600 mg(1,500mg) -200 unit Tablet 1 tab PO QAM RF: 0 hydrocodone-acetaminophen 10-325 mg tablet 1 tab PO Q4H MDD 6 tabs per day PRN (Reason: Severe Pain (Scale Score 7-10)) RF: 0 aspirin 81 mg Tablet,Delayed Release (Dr/Ec) 81 mg PO QAM RF: 0 hydrocortisone acetate 25 mg Suppository 25 mg RI BID PRN (Reason: Hemorrhoids) RF: 0 lorazepam 0.5 mg tablet 0.5 mg PO BID PRN (Reason: agitation/ anxiety) RF: 0 bisacodyl [Dulcolax (bisacodyl)] 10 mg Suppository 10 mg RI DAILY MDD no more than 1 per week PRN (Reason: Constipation) RF: 0 pantoprazole 40 mg tablet,delayed release (DR/EC) 40 mg PO QAM RF: 0 docusate sodium 100 mg Capsule 100 mg PO BID RF: 0 sertraline 25 mg tablet 25 mg PO QAM RF: 0 folic acid 1 mg tablet 1 mg PO QAM RF: 0 albuterol sulfate 90 mcg/actuation HFA aerosol inhaler 2 puff INHALATION QID PRN (Reason: SOB/Wheezing) RF: 0 oxycodone 5 mg tablet 5 mg PO Q8H PRN (Reason: Severe Pain (Scale Score 7-10)) RF: 0 rosuvastatin 10 mg tablet 10 mg PO PM RF: 0 budesonide-formoterol [Symbicort] 160-4.5 mcg/actuation HFA aerosol inhaler 2 puff INHALATION BID RF: 0 cholecalciferol (vitamin D3) [Vitamin D3] 10 mcg (400 unit) Tablet,Chewable 10 mcg PO QAM RF: 0 Prolia 60 mg/mL Syringe 60 mg SUBCUT Q180D RF: 0 prednisone 5 mg tablet 5 mg PO QAM RF: 0 Discontinued fluconazole 100 mg tablet 100 mg PO QAM RF: 0 sulfamethoxazole-trimethoprim 800-160 mg tablet 1 tab PO BID RF: 0 methotrexate sodium 2.5 mg tablet 15 mg PO WK RF: 0 Xeljanz XR 11 mg tablet extended release 24 hr 11 mg PO QAM RF: 0 Discharge Orders: Discharge Order (Routine); Ordered 10/31/20 Ordered By: Aron Bar Admission Data Admit Date/Time: 10/26/20 11:25 Attending Provider: Aron Bar Admit Provider: Lowell Arnold Primary Care Provider: Carlos Ambriz Other Providers: Lowell Arnold ; Jamshid Guidry Other Interventions: Discharge Summary Assessment (RN) Last Done: 10/31/20 14:11
== END 2020-10-31 15:05 | disposition home or self-care (01) | DRG 501 ==
LOC: ED 08:11 → 2W 11:25 → SUATTDRO 11:25 → 2W 12:48

== ENCOUNTER 2021-02-19 15:59 | Inpatient (IN) ==
[2021-02-19] MEDS ORDERED: ALBUTEROL 0.083% NEBU SOLN 3 ML VIAL NEB STA ×2 (16:13→17:00)
[2021-02-19] MEDS ORDERED: dexAMETHasone**PF** 10 MG/ML VIAL IV ONE (16:19)
--- NOTE | 2021-02-19 16:19 | Emergency Department Note ---
Impression & Plan Respiratory failure, COPD (chronic obstructive pulmonary disease), Elevated troponin, Hypoxia ED Provider Note NAME: SIMRAN DE LA GARZA AGE: 66 SEX: F : 1955 ARRIVES VIA: Ambulance INFORMANT: Patient ED PROVIDER(S): Fuad Baum DO CHIEF COMPLAINT: shortness of breath HPI: Patient is a 66-year-old female who presents to the ER with a past medical history of COPD for shortness of breath. She notes that she was seen and evaluated in outside facility but left due to the prolonged wait. She notes she was diagnosed with COPD and CHF at that time. Previous smoker. She admits to shortness of breath. No chest pain. Denies any belly pain, nausea, vomiting, or diarrhea. No dysuria, urgency, or frequency. She was brought in by EMS and found to be hypoxic. She was brought in on 3 L nasal cannula. She admits to a cough but this is unchanged from previous. ROS: See above HPI for pertinent positives & negatives. A total of 10 systems reviewed and were otherwise negative. PAST MEDICAL HISTORY:See Below PAST SURGICAL HISTORY:See Below FAMILY HISTORY:See Below SOCIAL HISTORY:See Below HOME MEDICATIONS:See Below ALLERGIES:See Below VITALS:See Below PHYSICAL EXAMINATION: GENERAL: Sitting up in bed, alert, slightly ill-appearing with a persistent co ugh, mild distress EYE EXAM: normal conjunctiva. OROPHARYNX: no exudate, no erythema, lips, buccal mucosa, and tongue normal and mucous membranes are moist NECK: supple, no nuchal rigidity, no adenopathy, non-tender LUNGS: Diffuse wheezing bilaterally. Normal chest wall mechanics HEART: no murmurs, S1 normal and S2 normal ABDOMEN: abdomen soft, non-tender, normo-active bowel sounds, no masses, no rebound or guarding. UPPER EXTREMITIES: upper extremities are grossly normal. LOWER EXTREMITIES: No pitting edema. Calves are equal bilateral NEURO EXAM: Normal sensorium, cranial nerves II-XII grossly intact, normal speech, no gross weakness of arms, no gross weakness of legs. MEDICAL DECISION MAKING: Patient is a 66-year-old female history of COPD, and diabetes who presents the ER for shortness of breath brought in by EMS found to be hypoxic with a pulse ox of 86 to 87% on room air. She was placed on 3 L nasal cannula in the ER. IV was established blood was obtained. Labs show leukocytosis 21,000 which I favor secondary to the steroids she received on the had an outside facility. She received Decadron. D-dimer was negative. Will not pursue any further. BMP with mild hyponatremia 131. CO2 slightly elevated at 33. LFTs bilirubin was unremarkable. Troponin was elevated 0.325. proBNP slightly elevated at just under 4000. Lipase was normal. Exam is not consistent with CHF. Influenza and Covid was negative. Chest x-ray was clean. EKG was done and there is no STEMI. Patient was given neb treatments as well as steroids. She was updated bedside. Remained on nasal cannula. Admitted to the hospitalist service for further work-up. Do favor the bump troponin secondary to the hypoxia and demand ischemia. Triage Nursing notes reviewed. Limited review of prior medical records performed Vital Signs: reviewed and remarkable for hypoxic Differential diagnosis: Differential diagnoses includes but is not limited to pneumonia, bronchitis, COPD/Asthma exacerbation, pneumothorax, pulmonary embolism, congestive heart failure, acute coronary syndrome ER treatment provided: See below Diagnostics interpreted by me: ECG: Sinus rhythm rate [address] wave changes in the inferior leads Q-wave in aVL Q waves in V1 through V4 Cardiac Monitoring: An order was placed for continuous cardiac monitoring. The monitor shows a rate of 90 with sinus rhythm. Laboratory studies: As stated above and show below. Imaging studies: Chest x-ray shows no focal infiltrate Consultation(s): D/w the hospital for further evaluation Procedures: none Critical Care: I have personally spent 31 minutes of critical care time in the direct management of this patient. This includes bedside care, interpretation of diagnostic studies, and testing, discussion with consultants, patient, and family members, and other required patient management activities. This 31 minutes is in excess of all separately billable procedures. Past Med/Surg History Medical History ADHD COPD (chronic obstructive pulmonary disease) Diabetes mellitus, type II Rheumatoid arthritis Septic olecranon bursitis of right elbow Surgical History Delivery by section H/O arthroscopy of shoulder History of elbow surgery debridement and irrigation for septic olecranon bursitis Family History Other Heart disease Lung cancer Social History Smoking Status: Current every day smoker Tobacco Type: Cigarettes Years Smoked: 25; Second Hand Exposure: Yes ( smokes outside of home); Hx Alcohol Use: No Hx Substance Use: No Preferred Language: Pashto Communication Ability: Effective 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 Other Information That Helps Us Care for You: No Feels Safe at Home: Yes Safety Concerns: Feels Safe At This Time Assistive Devices: Oxygen - Continuous Allergies Allergies Allergy/AdvReac Type Severity Reaction Status Date / Time cephalexin Allergy Unknown Unknown Verified 02/19/21 17:06 Home Meds Home Medications Medication Instructions Recorded Confirmed albuterol sulfate 90 mcg/actuation 2 puff INHALATION QID PRN 10/26/20 02/19/21 aerosol inhaler aspirin 81 mg tablet,delayed 81 mg PO QAM 10/26/20 02/19/21 release bisacodyl 10 mg rectal suppository 10 mg WI DAILY PRN MDD no more 10/26/20 02/19/21 (Dulcolax (bisacodyl)) than 1 per week budesonide-formoterol HFA 160 2 puff INHALATION BID 10/26/20 02/19/21 mcg-4.5 mcg/actuation aerosol inhaler (Symbicort) calcium carbonate 600 mg-vitamin 1 tab PO QAM 10/26/20 02/19/21 D3 5 mcg (200 unit) tablet (Calcium 600 + D(3)) cholecalciferol (vitamin D3) 10 10 mcg PO QAM 10/26/20 02/19/21 mcg (400 unit) chewable tablet (Vitamin D3) denosumab 60 mg/mL subcutaneous 60 mg SUBCUT Q180D 10/26/20 02/19/21 syringe (Prolia) dextroamphetamine-amphetamine 7.5 7.5 mg PO BID 10/26/20 02/19/21 mg tablet docusate sodium 100 mg capsule 100 mg PO BID PRN 10/26/20 02/19/21 folic acid 1 mg tablet 1 mg PO QAM 10/26/20 02/19/21 hydrocortisone acetate 25 mg 25 mg WI BID PRN 10/26/20 02/19/21 rectal suppository ipratropium 0.5 mg-albuterol 3 mg 3 ml INHALATION Q4H PRN 10/26/20 02/19/21 (2.5 mg base)/3 mL nebulization soln lorazepam 0.5 mg tablet 0.5 mg PO BID PRN 10/26/20 02/19/21 multivitamin 1 tab PO QAM 10/26/20 02/19/21 pantoprazole 40 mg tablet,delayed 40 mg PO QAM 10/26/20 02/19/21 release potassium chloride 10 mEq 10 meq PO TID 10/26/20 02/19/21 capsule,extended release prednisone 5 mg tablet 5 mg PO QAM 10/26/20 02/19/21 rosuvastatin 10 mg tablet 10 mg PO PM 10/26/20 02/19/21 cyanocobalamin (vitamin B-12) 1,000 mcg IM .Q 4 WEEKS 02/19/21 02/19/21 1,000 mcg/mL injection solution fluoxetine 20 mg capsule 20 mg PO DAILY 02/19/21 02/19/21 metformin 500 mg tablet,extended 500 mg PO QPM 02/19/21 02/19/21 release 24 hr methotrexate sodium 2.5 mg tablet 15 mg PO WK 02/19/21 02/19/21 tofacitinib 11 mg tablet,extended 11 mg PO DAILY 02/19/21 02/19/21 release 24 hr (Xeljanz XR) Previous Rx's Medication Instructions Recorded diltiazem HCl 120 mg 120 mg PO QAM #30 cap 02/22/21 capsule,extended release 24 hr lisinopril 10 mg tablet 10 mg PO QAM #30 tab 02/22/21 nicotine 21 mg/24 hr daily 21 mg TRANSDERMAL QAM 28 Days #28 02/22/21 transdermal patch (Nicoderm CQ) ea Results & Data (ED) Vital Signs Vital Signs - 24 hr 02/19/21 16:12 02/19/21 16:20 02/19/21 16:29 Temperature 36.9 C 36.9 C Temperature Source Oral Oral Pulse Rate 95 H Pulse Rate [Apical] 75 Respiratory Rate 18 22 Respiratory Effort / Characteristics Respiratory Depth Normal Normal Respiratory Pattern Regular Blood Pressure 102/65 Blood Pressure Mean 77 Pulse Oximetry 94 96 Oxygen Delivery Method Nasal Cannula Nasal Cannula Room Air Oxygen Flow Rate 2.5 2.5 Sepsis Recent Fever Within 48 Hours No Sepsis New/Unexplained Change in Mental Status No Sepsis Action Taken by Nursing No Action Required 02/19/21 17:27 Temperature Temperature Source Pulse Rate Pulse Rate [Apical] 92 H Respiratory Rate 28 H Respiratory Effort / Characteristics Spontaneous Respiratory Depth Respiratory Pattern Blood Pressure Blood Pressure Mean Pulse Oximetry 94 Oxygen Delivery Method Nasal Cannula Oxygen Flow Rate 2 Sepsis Recent Fever Within 48 Hours Sepsis New/Unexplained Change in Mental Status Sepsis Action Taken by Nursing Laboratory Data Result diagrams: 02/22/21 03:51 02/22/21 03:51 Lab Results 02/19/21 02/19/21 02/19/21 Range/Units 16:25 16:25 16:25 WBC 21.19 H (4.8-10.8) K/uL RBC 4.63 (4.2-5.4) M/uL Hgb 13.9 (12.0-16.0) g/dL Hct 44.2 (37-47) % MCV 95.5 (80-100) fL MCH 30.0 (25-34) pg MCHC 31.4 L (32-36) g/dL RDW Std Deviation 53.2 H (36.4-46.3) fL RDW Coeff of Stef 15.3 H (11.5-14.5) % Plt Count 270 (130-400) K/uL MPV 11.3 H (7.4-10.4) fL Immature Gran % (Auto) 0.7 % Neut % (Auto) 84.3 % Lymph % (Auto) 11.8 % Kaufman % (Auto) 3.1 % Eos % (Auto) 0.0 % Baso % (Auto) 0.1 % Neut # (Auto) 17.86 H (1.4-6.5) K/uL Lymph # (Auto) 2.50 (1.2-3.4) K/uL Kaufman # (Auto) 0.66 H (0.11-0.59) K/uL Eos # (Auto) 0.01 (0-0.5) K/uL Baso # (Auto) 0.02 (0-0.2) K/uL Immature Gran # (Auto) 0.14 H (0.00-0.02) K/uL D-Dimer 290 (0-500) ug/L FEU Sodium 131 L (136-145) mmol/L Potassium 4.2 (3.5-5.1) mmol/L Chloride 93 L (98-107) mmol/L Carbon Dioxide 33 H (21-32) mmol/L Anion Gap 5.0 (3-11) BUN 24 H (7-18) mg/dl Creatinine 0.66 (0.6-1.2) mg/dl Est Cr Clr Drug Dosing 70.5 ml/min Est GFR ( Amer) 108.2 ml/min Est GFR (Non-Af Amer) 93.4 ml/min BUN/Creatinine Ratio 36.1 H (10-20) Glucose 172 H (70-99) mg/dl Calcium 9.0 (8.5-10.1) mg/dl Total Bilirubin 0.3 (0.2-1) mg/dl AST 22 (15-37) U/L ALT 16 (12-78) Alkaline Phosphatase 61 (45-117) U/L Troponin I 0.325 H* (0-0.045) ng/ml NT-Pro-B Natriuret Pep 3930 H (0-900) pg/ml Total Protein 6.3 L (6.4-8.2) gm/dl Albumin 3.2 L (3.4-5.0) gm/dl Globulin 3.1 (2.5-4.0) gm/dl Albumin/Globulin Ratio 1.0 (0.9-2) Lipase 170 (73-393) U/L SARS-CoV-2 (PCR) (Negative) Influenza Type A (PCR) (Neg) Influenza Type B (PCR) (Neg) RSV (RT-PCR) (Neg) 02/19/21 Range/Units 17:30 WBC (4.8-10.8) K/uL RBC (4.2-5.4) M/uL Hgb (12.0-16.0) g/dL Hct (37-47) % MCV (80-100) fL MCH (25-34) pg MCHC (32-36) g/dL RDW Std Deviation (36.4-46.3) fL RDW Coeff of Stef (11.5-14.5) % Plt Count (130-400) K/uL MPV (7.4-10.4) fL Immature Gran % (Auto) % Neut % (Auto) % Lymph % (Auto) % Kaufman % (Auto) % Eos % (Auto) % Baso % (Auto) % Neut # (Auto) (1.4-6.5) K/uL Lymph # (Auto) (1.2-3.4) K/uL Kaufman # (Auto) (0.11-0.59) K/uL Eos # (Auto) (0-0.5) K/uL Baso # (Auto) (0-0.2) K/uL Immature Gran # (Auto) (0.00-0.02) K/uL D-Dimer (0-500) ug/L FEU Sodium (136-145) mmol/L Potassium (3.5-5.1) mmol/L Chloride (98-107) mmol/L Carbon Dioxide (21-32) mmol/L Anion Gap (3-11) BUN (7-18) mg/dl Creatinine (0.6-1.2) mg/dl Est Cr Clr Drug Dosing ml/min Est GFR ( Amer) ml/min Est GFR (Non-Af Amer) ml/min BUN/Creatinine Ratio (10-20) Glucose (70-99) mg/dl Calcium (8.5-10.1) mg/dl Total Bilirubin (0.2-1) mg/dl AST (15-37) U/L ALT (12-78) Alkaline Phosphatase (45-117) U/L Troponin I (0-0.045) ng/ml NT-Pro-B Natriuret Pep (0-900) pg/ml Total Protein (6.4-8.2) gm/dl Albumin (3.4-5.0) gm/dl Globulin (2.5-4.0) gm/dl Albumin/Globulin Ratio (0.9-2) Lipase (73-393) U/L SARS-CoV-2 (PCR) NEGATIVE (Negative) Influenza Type A (PCR) Negative (Neg) Influenza Type B (PCR) Negative (Neg) RSV (RT-PCR) Negative (Neg) Administered Medications Discontinued Medications Hydrocodone Bitart/Acetaminophen (Hydrocodone/Acetaminophen 10/325 Tab) 1 tab PO Q6H LETA Stop: 03/06/21 13:59 Last Admin: 02/22/21 14:14 Dose: 1 tab Documented by: [id number] Admin: 02/22/21 08:47 Dose: 1 tab Documented by: [id number] Admin: 02/22/21 02:31 Dose: Not Given Documented by: [id number] Admin: 02/21/21 19:49 Dose: 1 tab Documented by: [id number] Admin: 02/21/21 14:20 Dose: 1 tab Documented by: [id number] Admin: 02/21/21 08:01 Dose: 1 tab Documented by: [id number] Admin: 02/21/21 02:04 Dose: 1 tab Documented by: [id number] Admin: 02/20/21 20:35 Dose: 1 tab Documented by: [id number] Admin: 02/20/21 15:02 Dose: Not Given Documented by: [id number] Albuterol (Albuterol 0.083% Nebu Soln 3 Ml Vial) 2.5 mg NEB NOW STA Stop: 02/19/21 16:14 Last Admin: 02/19/21 17:13 Dose: 2.5 mg Documented by: [id number] Albuterol (Albuterol 0.083% Nebu Soln 3 Ml Vial) 5 mg NEB NOW STA Stop: 02/19/21 17:01 Last Admin: 02/19/21 17:27 Dose: 5 mg Documented by: [id number] Albuterol (Albut/Ipratrop 3mg/0.5mg Neb 3 Ml Vial) 3 ml NEB QIDR LETA Stop: 03/22/21 06:59 Last Admin: 02/22/21 10:53 Dose: 3 ml Documented by: [id number] Admin: 02/22/21 07:51 Dose: 3 ml Documented by: [id number] Admin: 02/21/21 19:12 Dose: 3 ml Documented by: [id number] Admin: 02/21/21 14:03 Dose: 3 ml Documented by: [id number] Admin: 02/21/21 11:34 Dose: 3 ml Documented by: [id number] Admin: 02/21/21 07:29 Dose: 3 ml Documented by: [id number] Admin: 02/20/21 18:48 Dose: 3 ml Documented by: [id number] Admin: 02/20/21 15:08 Dose: 3 ml Documented by: [id number] Admin: 02/20/21 11:24 Dose: 3 ml Documented by: [id number] Admin: 02/20/21 07:51 Dose: 3 ml Documented by: [id number] Amoxicillin/Clavulanate Potassium (Amoxicillin/Clavulanate 875 Mg Tab) 1 tab PO BIDM [facility] Stop: 02/26/21 08:01 Last Admin: 02/22/21 08:45 Dose: 1 tab Documented by: [id number] Admin: 02/21/21 19:42 Dose: 1 tab Documented by: [id number] Amphetamine/Dextroamphetamine (Amphetamine Asp/Sulf/Dextramph 5 Mg Tab) 7.5 mg PO BID@0800,1400 [facility] Stop: 03/06/21 07:59 Last Admin: 02/20/21 09:25 Dose: Not Given Documented by: [id number] Aspirin (Aspirin Chew 324 Mg) 324 mg PO NOW STA Stop: 02/19/21 17:09 Last Admin: 02/19/21 18:34 Dose: 324 mg Documented by: [id number] Aspirin (Aspirin 81 Mg Ectab) 81 mg PO QAM [facility] Stop: 03/22/21 08:59 Last Admin: 02/22/21 08:46 Dose: 81 mg Documented by: [id number] Admin: 02/21/21 08:03 Dose: 81 mg Documented by: [id number] Admin: 02/20/21 09:21 Dose: 81 mg Documented by: [id number] Azithromycin (Azithromycin 250 Mg Tab) 500 mg PO NOW ONE Stop: 02/21/21 16:11 Last Admin: 02/21/21 18:31 Dose: 500 mg Documented by: [id number] Azithromycin (Azithromycin 250 Mg Tab) Confirm Administered Dose 500 mg PO .STK- MED ONE Stop: 02/21/21 18:24 Last Admin: 02/21/21 18:33 Dose: Not Given Documented by: [id number] Benzonatate (Benzonatate 100 Mg Capsule) 100 mg PO TID [facility] Stop: 02/24/21 20:59 Last Admin: 02/22/21 14:14 Dose: 100 mg Documented by: [id number] Admin: 02/22/21 08:48 Dose: 100 mg Documented by: [id number] Admin: 02/21/21 18:56 Dose: Not Given Documented by: [id number] Benzonatate (Benzonatate 100 Mg Capsule) Confirm Administered Dose 100 mg .ROUTE .STK-MED ONE Stop: 02/21/21 18:25 Last Admin: 02/21/21 18:33 Dose: 100 mg Documented by: [id number] Dexamethasone Sodium Phosphate (DexamethasonePf 10 Mg/Ml Vial) 10 mg IV NOW ONE Stop: 02/19/21 16:20 Last Admin: 02/19/21 16:49 Dose: 10 mg Documented by: [id number] Diltiazem HCl (Diltiazem Hcl 120 Mg Capcr) [facility] [place]: 03/24/21 13:59 Last Admin: 02/22/21 15:34 Dose: 120 mg Documented by: [id number] Doxycycline Hyclate (Doxycycline Hyclate 100 Mg Cap) 100 mg PO BID [facility] Stop: 03/01/21 08:59 Last Admin: 02/22/21 08:43 Dose: 100 mg Documented by: [id number] Enoxaparin Sodium (Enoxaparin Inj 40 Mg/0.4 Ml Syr) 40 mg SQ [facility] Stop: 03/22/21 08:59 Last Admin: 02/22/21 08:48 Dose: 40 mg Documented by: [id number] Admin: 02/21/21 08:02 Dose: 40 mg Documented by: [id number] Admin: 02/20/21 09:18 Dose: 40 mg Documented by: [id number] Fluconazole (Fluconazole 100 Mg Tab) 200 mg PO NOW ONE Stop: 02/21/21 21:45 Last Admin: 02/21/21 22:16 Dose: 200 mg Documented by: [id number] Fluoxetine HCl (Fluoxetine Hcl 20 Mg Cap) 20 mg PO DAILY [facility] Stop: 03/22/21 08:59 Last Admin: 02/22/21 08:45 Dose: 20 mg Documented by: [id number] Admin: 02/21/21 08:02 Dose: 20 mg Documented by: [id number] Admin: 02/20/21 09:21 Dose: 20 mg Documented by: [id number] Folic Acid (Folic Acid 1 Mg Tab) 1 mg PO [facility] Stop: 03/22/21 08:59 Last Admin: 02/22/21 08:46 Dose: 1 mg Documented by: [id number] Admin: 02/21/21 08:02 Dose: 1 mg Documented by: [id number] Admin: 02/20/21 09:22 Dose: 1 mg Documented by: [id number] Guaifenesin (Guaifenesin 600 Mg Tabcr) 600 mg PO Q12 [facility] Stop: 03/23/21 20:59 Last Admin: 02/22/21 08:43 Dose: 600 mg Documented by: [id number] Admin: 02/21/21 18:57 Dose: Not Given Documented by: [id number] Guaifenesin (Guaifenesin 600 Mg Tabcr) Confirm Administered Dose 600 mg PO .STK- MED ONE Stop: 02/21/21 18:25 Last Admin: 02/21/21 18:33 Dose: 600 mg Documented by: [id number] Methylprednisolone 40 mg/ (Syringe) 0.64 mls @ 1.5 mls/min IV Q6H [facility]A Stop: 03/21/21 19:44 Last Admin: 02/21/21 14:20 Dose: 1.5 mls/min Documented by: [id number] Admin: 02/21/21 08:02 Dose: 1.5 mls/min Documented by: [id number] Admin: 02/21/21 02:04 Dose: 1.5 mls/min Documented by: [id number] Admin: 02/20/21 22:01 Dose: 1.5 mls/min Documented by: [id number] Admin: 02/20/21 14:27 Dose: 1.5 mls/min Documented by: [id number] Admin: 02/20/21 09:17 Dose: 1.5 mls/min Documented by: [id number] Admin: 02/20/21 02:18 Dose: 1.5 mls/min Documented by: [id number] Admin: 02/19/21 20:46 Dose: 1.5 mls/min Documented by: [id number] Insulin Aspart (Insulin Aspart Per Unit) 0 units SC ACHS [facility] Stop: 03/21/21 22:22 Last Admin: 02/22/21 12:39 Dose: Not Given Documented by: [id number] Admin: 02/22/21 08:53 Dose: 2 units Documented by: [id number] Cosigned by: [id number] Admin: 02/21/21 21:38 Dose: 2 units Documented by: [id number] Cosigned by: [id number] Admin: 02/21/21 18:31 Dose: 4 units Documented by: [id number] Cosigned by: [id number] Admin: 02/21/21 12:39 Dose: 2 units Documented by: [id number] Cosigned by: [id number] Admin: 02/21/21 08:41 Dose: 6 units Documented by: [id number] Cosigned by: [id number] Admin: 02/20/21 20:34 Dose: 7 units Documented by: [id number] Cosigned by: [id number] Admin: 02/20/21 20:34 Dose: Not Given Documented by: [id number] Cosigned by: [id number] Admin: 02/20/21 15:11 Dose: 1 units Documented by: [id number] Cosigned by: [id number] Admin: 02/20/21 10:15 Dose: 5 units Documented by: [id number] Cosigned by: [id number] Admin: 02/19/21 23:15 Dose: 3 units Documented by: [id number] Cosigned by: [id number] Lactobacillus Acidoph/Casei/Rhamnos (Advanced Probiotic 1250 Mg Capsule) 2 cap PO DAILY [facility] Stop: 03/24/21 13:59 Last Admin: 02/22/21 15:35 Dose: 2 cap Documented by: [id number] Lisinopril (Lisinopril 20 Mg Tab) 20 mg PO QAM [facility] Stop: 03/22/21 08:59 Last Admin: 02/22/21 08:44 Dose: 20 mg Documented by: [id number] Admin: 02/21/21 08:03 Dose: 20 mg Documented by: [id number] Admin: 02/20/21 09:22 Dose: 20 mg Documented by: [id number] Lorazepam (Lorazepam 0.5 Mg Tab) 0.5 mg PO BID PRN PRN Reason: agitation/ anxiety Stop: 03/21/21 22:22 Last Admin: 02/22/21 08:48 Dose: 0.5 mg Documented by: [id number] Admin: 02/21/21 08:01 Dose: 0.5 mg Documented by: [id number] Admin: 02/20/21 20:35 Dose: 0.5 mg Documented by: [id number] Admin: 02/20/21 07:47 Dose: 0.5 mg Documented by: [id number] Methylprednisolone (Methylprednisolone 40 Mg/Ml Vial) Confirm Administered Dose 40 mg .ROUTE .STK-MED ONE Stop: 02/20/21 22:00 Last Admin: 02/20/21 22:26 Dose: Not Given Documented by: [id number] Miscellaneous (Remove Nicoderm Patch) 1 ea N/A DAILY@[id number] [facility] Stop: 03/24/21 08:58 Last Admin: 02/22/21 08:49 Dose: 1 ea Documented by: [id number] Miscellaneous Information (Consult Pharmacy) 1 ea N/A NOW STA Stop: 02/19/21 19:44 Last Admin: 02/19/21 23:08 Dose: Not Given Documented by: [id number] Nicotine (Nicotine 21 Mg/24 Hr Tdsy) 21 mg TD QAM [facility] Stop: 03/23/21 15:44 Last Admin: 02/22/21 08:51 Dose: 21 mg Documented by: [id number] Admin: 02/21/21 18:30 Dose: 21 mg Documented by: [id number] Oxycodone HCl (Oxycodone Hcl Ir 5 Mg Tab (Immediate Release)) 5 mg PO Q6H PRN PRN Reason: breakthrough joint pain Stop: 03/06/21 16:59 Last Admin: 02/22/21 02:31 Dose: 5 mg Documented by: [id number] Pantoprazole Sodium (Pantoprazole 40 Mg Tab) 40 mg PO QAM [facility] Stop: 03/22/21 08:59 Last Admin: 02/22/21 08:46 Dose: 40 mg Documented by: [id number] Admin: 02/21/21 08:03 Dose: 40 mg Documented by: [id number] Admin: 02/20/21 09:20 Dose: 40 mg Documented by: [id number] Potassium Chloride (Potassium Chloride 10 Meq Tabcr) 10 meq PO TIDM [facility] Stop: 03/21/21 22:22 Last Admin: 02/22/21 14:14 Dose: 10 meq Documented by: [id number] Admin: 02/22/21 08:47 Dose: 10 meq Documented by: [id number] Admin: 02/21/21 18:32 Dose: 10 meq Documented by: [id number] Admin: 02/21/21 12:40 Dose: 10 meq Documented by: [id number] Admin: 02/21/21 08:03 Dose: 10 meq Documented by: [id number] Admin: 02/20/21 20:35 Dose: 10 meq Documented by: [id number] Admin: 02/20/21 14:27 Dose: 10 meq Documented by: [id number] Admin: 02/20/21 09:20 Dose: 10 meq Documented by: [id number] Admin: 02/19/21 23:04 Dose: 10 meq Documented by: [id number] Prednisone (Prednisone 20 Mg Tab) 40 mg PO DAILY [facility] Stop: 02/26/21 09:01 Last Admin: 02/22/21 08:44 Dose: 40 mg Documented by: [id number] Rosuvastatin Calcium (Rosuvastatin Calcium 10 Mg Tab) 10 mg PO PM [facility] Stop: 03/21/21 22:22 Last Admin: 02/21/21 21:47 Dose: 10 mg Documented by: [id number] Admin: 02/20/21 22:01 Dose: 10 mg Documented by: [id number] Admin: 02/19/21 23:04 Dose: 10 mg Documented by: [id number] Vitamin D (Cholecalciferol 400 Units 10 Mcg Tab) 400 units PO QAM [facility] Stop: 03/22/21 08:59 Last Admin: 02/22/21 08:45 Dose: 400 units Documented by: [id number] Admin: 02/21/21 08:02 Dose: 400 units Documented by: [id number] Admin: 02/20/21 09:21 Dose: 400 units Documented by: [id number] Imaging Data Radiologist's Impression: Chest X-Ray 02/19/21 16:13 XR chest 1V portable HISTORY: 66 years-old Female Chest Pain acute atypical chest pain COMPARISON: Chest radiograph 10/30/2020 TECHNIQUE: Portable AP view of the chest FINDINGS: The cardiomediastinal and hilar silhouettes are within normal limits. Calcified plaque of the thoracic aorta. There is no pneumothorax, pleural effusion, airspace consolidation or overt pulmonary edema. Prior left-sided biceps tenodesis. No acute fracture. IMPRESSION: No acute process. ACT 112: Negative or not required by law. The above report was generated using voice recognition software. It may contain grammatical, syntax or spelling errors. Electronically signed by: Taras Clark M.D. 02/19/2021 4:34 PM Discharge Plan Visit Data Patient Disposition: Admitted As Inpatient Discharge Instructions Interventions: ED Discharge Assessment Last Done: 02/20/21 02:39 Discharge Problem: Respiratory failure Qualifiers: Chronicity: acute Respiratory failure complication: hypoxia Qualified Code(s): J96.01 - Acute respiratory failure with hypoxia COPD (chronic obstructive pulmonary disease) Qualifiers: COPD type: unspecified COPD Qualified Code(s): J44.9 - Chronic obstructive pulmonary disease, unspecified
--- NOTE | 2021-02-19 16:35 | XRay Report ---
XR chest 1V portable HISTORY: 66 years-old Female Chest Pain acute atypical chest pain COMPARISON: Chest radiograph 10/30/2020 TECHNIQUE: Portable AP view of the chest FINDINGS: The cardiomediastinal and hilar silhouettes are within normal limits. Calcified plaque of the thoraci c aorta. There is no pneumothorax, pleural effusion, airspace consolidation or overt pulmonary edema. Prior left-sided biceps tenodesis. No acute fracture. IMPRESSION: No acute process. ACT 112: Negative or not required by law. The above report was generated using voice recognition software. It may contain grammatical, syntax o r spelling errors. Electronically signed by: Taras Clark M.D. 02/19/2021 4:34 PM
[2021-02-19 16:38] LABS: Hematocrit (blood only) 44.2 % (37-47); Hemoglobin 13.9 g/dL (12.0-16.0); Mean Corpuscular Hgb Conc 31.4 g/dL (32-36); Mean Corpuscular Volume 95.5 fL (80-100); Mean Platelet Volume 11.3 fL (7.4-10.4); Platelet Count 270 K/uL (130-400); RDW Coefficient of Variation 15.3 % (11.5-14.5); RDW Standard Deviation 53.2 fL (36.4-46.3); Red Blood Count 4.63 M/uL (4.2-5.4); White Blood Count 21.19 K/uL (4.8-10.8)
[2021-02-19 16:47] LABS: D Dimer 290 ug/L FEU (0-500)
[2021-02-19 16:55] LABS: Albumin Level 3.2 gm/dl (3.4-5.0); BUN Creatinine Ratio 36.1 (10-20); Creatinine Clr Calc Pharmacy 70.5 ml/min; Est GFR (African American) 108.2 ml/min; Est GFR (Non-African American) 93.4 ml/min; Potassium 4.2 mmol/L (3.5-5.1)
[2021-02-19 17:02] LABS: Bilirubin,Total 0.3 mg/dl (0.2-1); Globulin 3.1 gm/dl (2.5-4.0); Total Protein 6.3 gm/dl (6.4-8.2); Troponin I 0.325 ng/ml (0-0.045)
[2021-02-19] MEDS ORDERED: ASPIRIN CHEW 324 MG PO STA (17:08)
[2021-02-19 17:14] LABS: Basophils # (auto) 0.02 K/uL (0-0.2); Basophils % (auto) 0.1 %; Eosinophils # (auto) 0.01 K/uL (0-0.5); Immature Granulocytes # (auto) 0.14 K/uL (0.00-0.02); Immature Granulocytes % (auto) 0.7 %; Lymphocytes % (auto) 11.8 %; Monocytes # (auto) 0.66 K/uL (0.11-0.59); Monocytes % (auto) 3.1 %; Neutrophils # (auto) 17.86 K/uL (1.4-6.5); Neutrophils % (auto) 84.3 %
[2021-02-19 18:30] LABS: Influenza A virus by PCR Negative (Neg); Influenza B virus by PCR Negative (Neg); RSV by PCR Negative (Neg); SARS CoV2 RNA(COVID-19) InHosp NEGATIVE (Negative)
[2021-02-19] MEDS ORDERED: CONSULT PHARMACY STA (19:43)
--- NOTE | 2021-02-19 19:44 | History & Physical Report ---
Date of Service February 19, 2021 Assessment & Plan (1) Hypoxia: Plan: Most likely due to COPD Exacerbation. While BNP is elevated, on exam, there is no evidence of significant fluid overload - Admit to med/surg tele - Continue supplemental O2 with goal to wean as tolerated - Sputum culture - IV methylprednisolone, IV Zosyn - DuoNebs QID scheduled with Q2 hrs prn - Incentive spirometry, flutter valve (2) Elevated troponin: Plan: - Serial troponin - Monitor on telemetry - Repeat EKG in AM and prn for chest pain - Check ECHO - Consult cardiology for additional recommendations (3) Rheumatoid arthritis: Plan: Holding immunosuppressants due to presumed active infection (4) Diabetes mellitus, type II: Plan: HOLD Metformin while admitted - Diabetic diet - Accuchecks - Sliding scale insulin (5) COPD (chronic obstructive pulmonary disease): Plan: See plan for #1 (6) Anxiety: Plan: Continue home meds (7) ADHD: Plan: Continue home meds Plan: Pt seen and reviewed with attending physician, Dr. Fan. Plan of care discussed and as outlined above. Extensive conversation with pt and her daughter regarding plan of care - all questions answered. Bibi Hutchinson PA-C History of Present Illness Chief Complaint: Shortness of breath Primary Care Provider: Carlos Ambriz DO This is a 66 y/o female with a PMH of RA on chronic methotrexate/prednisone/Xeljanz, newly diagnosed DM, COPD, and osteoporosis who presented to the ED today with worsening shortness of breath. Pt reports increasing frequency of exacerbations over the past few months with multiple course of oral steroids and antibiotics. She was recommended to have ECHO and PFTs but declined at that time, preferring to minimize testing if possible. Her current exacerbation started 5 days ago when she was out in the cold air shopping with her daughter. She used her albuterol inhaler when she got home which seemed to help. However, her respiratory status has gradually declined since then. She was seen in the ED at [place] on 02/17/21 and was diagnosed with COPD exacerbation and mild CHF. Given dexamethasone 10 mg IV x 1, Lasix 40 mg IV x 1, DuoNeb x 1, and Ativan 0.5 mg po x 1 dose in the ED there and discharged home. Since then pt has noted worsening SOB at rest and with exertion. She has a home pulseox and notes that her sats have dropped to 80-82% with ambulation, improve to low 90s with rest. She has been borrowing her neighbor's oxygen for the past two days and using 3L to maintain sats, keep herself comfortable. She has had PND, head congestion, runny nose but denies ST. No known exposure to COVID. She has received three dose of the COVID vaccine (Moderna - last one 12/18/20). She has noted wheezing and chest tightness - using albuterol nebs twice a day. Denies chest pain, palpitations, syncope, dizziness. No prior hx of pneumonia. Only admission for COPD was when she was first diagnosed years ago. Allergies Allergy/AdvReac Type Severity Reaction Status Date / Time cephalexin Allergy Unknown Unknown Verified 02/19/21 17:06 Home Medications Medication Instructions Recorded Confirmed Type albuterol sulfate 90 mcg/actuation 2 puff INHALATION QID PRN 10/26/20 02/19/21 History aerosol inhaler aspirin 81 mg tablet,delayed 81 mg PO QAM 10/26/20 02/19/21 History release bisacodyl 10 mg rectal suppository 10 mg MS DAILY PRN MDD no more 10/26/20 02/19/21 History (Dulcolax (bisacodyl)) than 1 per week budesonide-formoterol HFA 160 2 puff INHALATION BID 10/26/20 02/19/21 History mcg-4.5 mcg/actuation aerosol inhaler (Symbicort) calcium carbonate 600 mg-vitamin 1 tab PO QAM 10/26/20 02/19/21 History D3 5 mcg (200 unit) tablet (Calcium 600 + D(3)) cholecalciferol (vitamin D3) 10 10 mcg PO QAM 10/26/20 02/19/21 History mcg (400 unit) chewable tablet (Vitamin D3) denosumab 60 mg/mL subcutaneous 60 mg SUBCUT Q180D 10/26/20 02/19/21 History syringe (Prolia) dextroamphetamine-amphetamine 7.5 7.5 mg PO BID 10/26/20 02/19/21 History mg tablet docusate sodium 100 mg capsule 100 mg PO BID PRN 10/26/20 02/19/21 History folic acid 1 mg tablet 1 mg PO QAM 10/26/20 02/19/21 History hydrocortisone acetate 25 mg 25 mg MS BID PRN 10/26/20 02/19/21 History rectal suppository ipratropium 0.5 mg-albuterol 3 mg 3 ml INHALATION Q4H PRN 10/26/20 02/19/21 History (2.5 mg base)/3 mL nebulization soln lisinopril 20 mg tablet 20 mg PO QAM 10/26/20 02/19/21 History lorazepam 0.5 mg tablet 0.5 mg PO BID PRN 10/26/20 02/19/21 History multivitamin 1 tab PO QAM 10/26/20 02/19/21 History pantoprazole 40 mg tablet,delayed 40 mg PO QAM 10/26/20 02/19/21 History release potassium chloride 10 mEq 10 meq PO TID 10/26/20 02/19/21 History capsule,extended release prednisone 5 mg tablet 5 mg PO QAM 10/26/20 02/19/21 History rosuvastatin 10 mg tablet 10 mg PO PM 10/26/20 02/19/21 History cyanocobalamin (vitamin B-12) 1,000 mcg IM .Q 4 WEEKS 02/19/21 02/19/21 History 1,000 mcg/mL injection solution fluoxetine 20 mg capsule 20 mg PO DAILY 02/19/21 02/19/21 History metformin 500 mg tablet,extended 500 mg PO QPM 02/19/21 02/19/21 History release 24 hr methotrexate sodium 2.5 mg tablet 15 mg PO WK 02/19/21 02/19/21 History tofacitinib 11 mg tablet,extended 11 mg PO DAILY 02/19/21 02/19/21 History release 24 hr (Xeljanz XR) Past Med/Surg History Medical History ADHD COPD (chronic obstructive pulmonary disease) Diabetes mellitus, type II Rheumatoid arthritis Septic olecranon bursitis of right elbow Surgical History Delivery by section H/O arthroscopy of shoulder History of elbow surgery debridement and irrigation for septic olecranon bursitis Family History Other Heart disease Lung cancer Social History Smoking Status: Current every day smoker Tobacco Type: Cigarettes Years Smoked: 25; Second Hand Exposure: Yes ( smokes outside of home); Hx Alcohol Use: No Hx Substance Use: No Preferred Language: Bahraini Communication Ability: Effective 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 Feels Safe at Home: Yes Assistive Devices: None Review of Systems Review of Systems: All systems reviewed & are unremarkable except as noted in HPI & below Constitutional: + sweats, + fatigue, + weakness and + anorexia; no fever and no chills Eyes: no diplopia and no worsening vision Ear, Nose, Mouth, Throat: + nasal congestion, + nasal discharge and + post nasal drip; no sore throat Respiratory: + cough, + chest congestion, + change in sputum (yellow), + dyspnea, + dyspnea on exertion and + wheezing Cardiovascular: no chest pain, no palpitations, no syncope and no edema Gastrointestinal: + diarrhea/loose stools (chronic due to Metformin); no abdominal pain, no nausea, no vomiting and no blood in stools Genitourinary: no dysuria, no urinary frequency, no urinary urgency and no hematuria Musculoskeletal: + problem reported (chronic RA) Neurologic: no localized weakness, no tremor(s) and no seizure-like activity Psychiatric: + anxiety; no depression Physical Exam Constitutional: + ill appearing; no acute distress Eyes: + anicteric sclerae Neck: trachea midline Respiratory: + prolonged expiratory phase; no respiratory distress and does not use accessory muscles Auscultation: + diminished lung sounds and + wheezes Cardiovascular: Rate/Rhythm: regular rate and regular rhythm Vessels: dorsalis pedis pulses present and radial pulses present Extremities: no calf tenderness and no edema Gastrointestinal (Abdomen): Inspection/Auscultation: normal bowel sounds; abdomen not distended Percussion/Palpation: abdomen soft; abdomen nontender Musculoskeletal: Head/Neck/Chest: normocephalic, head atraumatic and neck supple Skin: no jaundice Neurologic: moves all extremities; no focal motor deficits Psychiatric: A+Ox3, euthymic affect Results & Data Results & Data ([facility]) Vital Signs (Past 12 Hours) Vital Signs Temp Pulse Pulse Resp BP Pulse Ox 02/19/21 17:27 92 H 28 H 94 02/19/21 16:20 36.9 C 75 22 96 02/19/21 16:12 36.9 C 95 H 18 102/65 94 Laboratory Results Laboratory Results - last 24 hr 02/19/21 02/19/21 02/19/21 16:25 16:25 16:25 WBC 21.19 H RBC 4.63 Hgb 13.9 Hct 44.2 MCV 95.5 MCH 30.0 MCHC 31.4 L RDW Std Deviation 53.2 H RDW Coeff of Stef 15.3 H Plt Count 270 MPV 11.3 H Immature Gran % (Auto) 0.7 Neut % (Auto) 84.3 Lymph % (Auto) 11.8 [place] % (Auto) 3.1 Eos % (Auto) 0.0 Baso % (Auto) 0.1 Neut # (Auto) 17.86 H Lymph # (Auto) 2.50 [place] # (Auto) 0.66 H Eos # (Auto) 0.01 Baso # (Auto) 0.02 Immature Gran # (Auto) 0.14 H D-Dimer 290 Sodium 131 L Potassium 4.2 Chloride 93 L Carbon Dioxide 33 H Anion Gap 5.0 BUN 24 H Creatinine 0.66 Est Cr Clr Drug Dosing 70.5 Est GFR ( Amer) 108.2 Est GFR (Non-Af Amer) 93.4 BUN/Creatinine Ratio 36.1 H Glucose 172 H Calcium 9.0 Total Bilirubin 0.3 AST 22 ALT 16 Alkaline Phosphatase 61 Troponin I 0.325 H* NT-Pro-B Natriuret Pep 3930 H Total Protein 6.3 L Albumin 3.2 L Globulin 3.1 Albumin/Globulin Ratio 1.0 Lipase 170 SARS-CoV-2 (PCR) Influenza Type A (PCR) Influenza Type B (PCR) RSV (RT-PCR) 02/19/21 17:30 WBC RBC Hgb Hct MCV MCH MCHC RDW Std Deviation RDW Coeff of Stef Plt Count MPV Immature Gran % (Auto) Neut % (Auto) Lymph % (Auto) [place] % (Auto) Eos % (Auto) Baso % (Auto) Neut # (Auto) Lymph # (Auto) [place] # (Auto) Eos # (Auto) Baso # (Auto) Immature Gran # (Auto) D-Dimer Sodium Potassium Chloride Carbon Dioxide Anion Gap BUN Creatinine Est Cr Clr Drug Dosing Est GFR ( Amer) Est GFR (Non-Af Amer) BUN/Creatinine Ratio Glucose Calcium Total Bilirubin AST ALT Alkaline Phosphatase Troponin I NT-Pro-B Natriuret Pep Total Protein Albumin Globulin Albumin/Globulin Ratio Lipase SARS-CoV-2 (PCR) NEGATIVE Influenza Type A (PCR) Negative Influenza Type B (PCR) Negative RSV (RT-PCR) Negative Diagnostic Findings Chest X-ray 02/19/21 - IMPRESSION: No acute process. Medications Administered Discontinued Medications Albuterol (Albuterol 0.083% Nebu Soln 3 Ml Vial) 2.5 mg NEB NOW STA Stop: 02/19/21 16:14 Last Admin: 02/19/21 17:13 Dose: 2.5 mg Documented by: [id number] Albuterol (Albuterol 0.083% Nebu Soln 3 Ml Vial) 5 mg NEB NOW STA Stop: 02/19/21 17:01 Last Admin: 02/19/21 17:27 Dose: 5 mg Documented by: [id number] Aspirin (Aspirin Chew 324 Mg) 324 mg PO NOW STA Stop: 02/19/21 17:09 Last Admin: 02/19/21 18:34 Dose: 324 mg Documented by: [id number] Dexamethasone Sodium Phosphate (DexamethasonePf 10 Mg/Ml Vial) 10 mg IV NOW ONE Stop: 02/19/21 16:20 Last Admin: 02/19/21 16:49 Dose: 10 mg Documented by: [id number] Code Status & VTE Plan VTE Prophylaxis Plan VTE Prophylaxis will be ordered: Yes Supervising Physician Co-Signing Physician Notes I have seen and examined the patient and have discussed the case with the provider above. I agree with the assessment and plan as stated. 66 yo F smoker with known h/o COPD presents wtih persistent dyspnea and hypoxia despite recent treatment for exacerbation. She reports feeling better with initial treatments in the ER. She reports having a hard time quitting smoking but is committed to quitting. Denies CP, fevers. Expiratory wheezing heard throughout on lung exam in all posterior lung frank. Cardiac exam was normal with S1/2 heard and no murmurs, gallops or rubs. She is sitting straight up in bed but doesn't exhibit conversational dyspnea. She reports feeling shaky from not eating today. She was initially hesitant to go on insulin while hospitalized, but better once she knew she wouldn't be going home on it. Agree with plan above. Adding Zosyn initially for possible pseudomonas with repeated rounds of antibiotics, underlying structural lung disease and patient on termite control representative steroids. Will e valuate progress in 48-72 hours and deescalate to oral therapy for a 5-7 day course. Cont with methylprednisolone as above. Level 3 insulin scale applied with basal /bolus coverage. Scheduled nebulized broncholidator therapy. Strongly encouraged to quit smoking. DO Meng (1) COPD (chronic obstructive pulmonary disease) COPD type: unspecified COPD Qualified Code(s): J44.9 - Chronic obstructive pulmonary disease, unspecified
[2021-02-19] MEDS: methylPREDNISolone 40 MG in SYRINGE 0 ML IV SCH (20:46)
[2021-02-19] MEDS ORDERED: ACETAMINOPHEN 325 MG TAB PO PRN (22:23)
[2021-02-19] MEDS ORDERED: CARBOHYDRATES FOR HYPOGLYCEMIA PO PRN (22:23)
[2021-02-19] MEDS ORDERED: GLUCOSE 40% GEL 15 GM TUBE PO PRN (22:23)
[2021-02-19] MEDS ORDERED: DEXTROSE 50% 50 ML SYRINGE IV PRN (22:23)
[2021-02-19] MEDS ORDERED: GLUCOSE 10 TABS/TUBE PO PRN (22:23)
[2021-02-19] MEDS ORDERED: GLUCAGON FOR INJ 1 MG VIAL SQ PRN (22:23)
[2021-02-19] MEDS: POTASSIUM CHLORIDE 10 MEQ TABCR PO SCH (23:04)
[2021-02-19] MEDS: ROSUVASTATIN CALCIUM 10 MG TAB PO SCH (23:04)
[2021-02-19] MEDS: INSULIN ASPART PER UNIT SC SCH (23:15)
[2021-02-20] MEDS: methylPREDNISolone 40 MG in SYRINGE 0 ML IV SCH ×4 (02:18→22:01)
[2021-02-20 05:27] LABS: Hematocrit (blood only) 38.8 % (37-47); Hemoglobin 12.1 g/dL (12.0-16.0); Immature Granulocytes # (auto) 0.07 K/uL (0.00-0.02); Immature Granulocytes % (auto) 0.7 %; Lymphocytes # (auto) 0.41 K/uL (1.2-3.4); Lymphocytes % (auto) 3.9 %; Mean Corpuscular Hemoglobin 29.6 pg (25-34); Mean Corpuscular Hgb Conc 31.2 g/dL (32-36); Mean Corpuscular Volume 94.9 fL (80-100); Mean Platelet Volume 11.5 fL (7.4-10.4); Monocytes % (auto) 2.8 %; Neutrophils # (auto) 9.84 K/uL (1.4-6.5); Neutrophils % (auto) 92.6 %; Platelet Count 213 K/uL (130-400); RDW Coefficient of Variation 15.2 % (11.5-14.5); RDW Standard Deviation 52.2 fL (36.4-46.3); Red Blood Count 4.09 M/uL (4.2-5.4); White Blood Count 10.62 K/uL (4.8-10.8)
[2021-02-20 05:50] LABS: BUN Creatinine Ratio 48.5 (10-20); Calcium 7.2 mg/dl (8.5-10.1); Creatinine Clr Calc Pharmacy 142.1 ml/min; Est GFR (African American) 128.6 ml/min; Troponin I 0.147 ng/ml (0-0.045)
[2021-02-20] MEDS: LORazepam 0.5 MG TAB PO PRN ×2 (07:47→20:35)
[2021-02-20] MEDS: ALBUT/IPRATROP 3MG/0.5MG NEB 3 ML VIAL NEB SCH ×4 (07:51→18:48)
[2021-02-20] MEDS ORDERED: AMPHETAMINE ASP/SULF/DEXTRAMPH 5 MG TAB PO SCH (08:00)
--- NOTE | 2021-02-20 08:43 | Cardiology Consultation ---
Date of Consultation February 20, 2021 Assessment & Plan (1) Elevated troponin: (2) Acute and chronic respiratory failure with hypoxia: (3) COPD (chronic obstructive pulmonary disease): (4) Hypertension: (5) Dyslipidemia: Patient admitted for acute respiratory failure with hypoxia secondary to COPD exacerbation. No pleural fluid on recent chest CT or chest xray. Does not examine as volume overload to suggest CHF. BNP is normal for age. Recommend continuing steroids, nebs, antibiotics per hospitalist. Her minimally elevated troponin is likely due to myocardial strain secondary to hypoxia. She has no anginal symptoms at this time. Echo demonstrated normal LVEF without wall motion abnormalities. EKG is without acute changes. She should continue ASA, statin, lisinopril. Beta mariela not initiated due to severe COPD/active wheezing. She does have significant cardiac risk factors including DM, tobacco abuse, hypertension, dyslipidemia, and family history of premature CAD. Therefore, once her COPD exacerbation has improved, recommend ischemic work up/stress test as an outpatient. At this time, no further cardiac testing is warranted. Case discussed with Dr. Duckworth Supervising Physician Co-Signing Physician Notes Patient seen and examined at the bedside. 66-year-old female admitted with shortness of breath, hypoxia, cough. Mildly elevated troponin noted. Denies chest discomfort or heaviness. Chronic dyspnea on exertion attributed to COPD/ongoing tobacco abuse. PE: General: Awake alert [place] x3, chronically ill. Heart: Regular, borderline tachycardic, normal S1-S2. No murmur. Lungs: Diminished breath sounds bilaterally. End expiratory wheezing noted. No rhonchi appreciated. Extremities: No edema. A/P: Agree with above PA-C history, physical exam, assessment and plan. Mildly elevated troponin secondary to acute hypoxemic respiratory failure, COPD exacerbation. Continue treatment as per internal medicine. Due to risk factors and family history, recommend outpatient ischemic evaluation, likely pharmacologic stress testing. Findings and recommendations discussed with patient and her at bedside. Thank you for allow me to participate in the care of your patient. History of Present Illness Reason for Consultation: Elevated Trop; SOB Requesting Physician: Dr. Fan Attending Physician: Dr. Duckworth History of Present Illness Patient is a 66 year old female with past history significant for chronic tobacco abuse with COPD, DM, hypertension dyslipidemia, and history of RA on chronic immunosuppressive therapy. Over the last 2 weeks patient reported worsening SOB with activity, increased cough with sputum production and wheezing. She was evaluated in the [place] ER on 02/17. Diagnosed with COPD exacerbation and possible CHF. Per notes, she was treated with steroids, lasix, and nebulizers with improvement in her symptoms. Chest CT (no contrast) was completed which demonstrated underlying COPD without pleural fluid. D. Dimer was negative. She was found to be hypoxic but apparently oxygen was not arranged on discharge. Potassium was elevated. She was discharged home and told to f/u with PCP. No outpatient meds/scripts were provided. Yesterday she went to PCP office with worsening SOB, hypoxia, wheezing and cough and referred to ER for evaluation. No ill contacts. COVID testing negative. Upon ER evaluation she was found to be hypoxic again, improving with supplemental O2, minimally elevated troponin at 0.3, EKG demonstrating NSR with possible old anterior infarct (vs lead placement) but no acute ischemic changes. Telemetry revealing NSR/sinus tachycardia ranging 90-100 bpm. She was started on IV steroids, nebs, antibiotics. Chest xray was without acute process. No pleural fluid or infiltrate. She denied recent orthopnea, PND or edema. BNP was normal for age. No recent chest pain at rest or with exertion. Admits to feeling "tightness" in her chest with the wheezing. At time of consult this morning, patient reports feeling better but ongoing dyspnea with minimal exertion, wheezing and cough reported. No fever or chills. no chest pain. no dizziness or lightheadedness. No palpitations. No orthopnea, PND or edema. She denies prior cardiac history. No prior or outside echo/stress test. No history of NV/CHF/arrhythmias or valvular disease. She reports her mother age 48 of presumed NV. Allergies Allergy/AdvReac Type Severity Reaction Status Date / Time cephalexin Allergy Unknown Unknown Verified 02/19/21 17:06 Home Medications Medication Instructions Recorded Confirmed Type albuterol sulfate 90 mcg/actuation 2 puff INHALATION QID PRN 10/26/20 02/19/21 History aerosol inhaler aspirin 81 mg tablet,delayed 81 mg PO QAM 10/26/20 02/19/21 History release bisacodyl 10 mg rectal suppository 10 mg GA DAILY PRN MDD no more 10/26/20 02/19/21 History (Dulcolax (bisacodyl)) than 1 per week budesonide-formoterol HFA 160 2 puff INHALATION BID 10/26/20 02/19/21 History mcg-4.5 mcg/actuation aerosol inhaler (Symbicort) calcium carbonate 600 mg-vitamin 1 tab PO QAM 10/26/20 02/19/21 History D3 5 mcg (200 unit) tablet (Calcium 600 + D(3)) cholecalciferol (vitamin D3) 10 10 mcg PO QAM 10/26/20 02/19/21 History mcg (400 unit) chewable tablet (Vitamin D3) denosumab 60 mg/mL subcutaneous 60 mg SUBCUT Q180D 10/26/20 02/19/21 History syringe (Prolia) dextroamphetamine-amphetamine 7.5 7.5 mg PO BID 10/26/20 02/19/21 History mg tablet docusate sodium 100 mg capsule 100 mg PO BID PRN 10/26/20 02/19/21 History folic acid 1 mg tablet 1 mg PO QAM 10/26/20 02/19/21 History hydrocortisone acetate 25 mg 25 mg GA BID PRN 10/26/20 02/19/21 History rectal suppository ipratropium 0.5 mg-albuterol 3 mg 3 ml INHALATION Q4H PRN 10/26/20 02/19/21 History (2.5 mg base)/3 mL nebulization soln lisinopril 20 mg tablet 20 mg PO QAM 10/26/20 02/19/21 History lorazepam 0.5 mg tablet 0.5 mg PO BID PRN 10/26/20 02/19/21 History multivitamin 1 tab PO QAM 10/26/20 02/19/21 History pantoprazole 40 mg tablet,delayed 40 mg PO QAM 10/26/20 02/19/21 History release potassium chloride 10 mEq 10 meq PO TID 10/26/20 02/19/21 History capsule,extended release prednisone 5 mg tablet 5 mg PO QAM 10/26/20 02/19/21 History rosuvastatin 10 mg tablet 10 mg PO PM 10/26/20 02/19/21 History cyanocobalamin (vitamin B-12) 1,000 mcg IM .Q 4 WEEKS 02/19/21 02/19/21 History 1,000 mcg/mL injection solution fluoxetine 20 mg capsule 20 mg PO DAILY 02/19/21 02/19/21 History metformin 500 mg tablet,extended 500 mg PO QPM 02/19/21 02/19/21 History release 24 hr methotrexate sodium 2.5 mg tablet 15 mg PO WK 02/19/21 02/19/21 History tofacitinib 11 mg tablet,extended 11 mg PO DAILY 02/19/21 02/19/21 History release 24 hr (Xeljanz XR) Patient History Medical History ADHD COPD (chronic obstructive pulmonary disease) Diabetes mellitus, type II Rheumatoid arthritis Septic olecranon bursitis of right elbow Surgical History Delivery by section H/O arthroscopy of shoulder History of elbow surgery debridement and irrigation for septic olecranon bursitis Family History Other Heart disease Lung cancer Social History Smoking Status: Current every day smoker Tobacco Type: Cigarettes Years Smoked: 25; Second Hand Exposure: Yes ( smokes outside of home); Hx Alcohol Use: No Hx Substance Use: No Preferred Language: Mohawk Communication Ability: Effective Sales Marketing Required: No Beliefs That Will Affect Care: None marital status: Current Living Situation: Spouse Current Living Situation Comment: home with spouse. Other Information That Helps Us Care for You: No Feels Safe at Home: Yes Safety Concerns: Feels Safe At This Time Assistive Devices: Oxygen - Continuous Review of Systems Review of Systems: All systems reviewed & are unremarkable except as noted in HPI & below Physical Exam Constitutional: WD/WN, vitals as above well developed and + ill appearing; not in distress Neck: trachea midline, no thyromegaly Respiratory: + cough and + audible wheezes; no respiratory distress Auscultation: + diminished lung sounds and + wheezes Cardiovascular: RRR, no murmur, no edema Gastrointestinal (Abdomen): normal bowel sounds, soft, nontender, no hepatosplenomegaly Skin: no rashes, warm and dry Neurologic: PERRL, EOMI, accommodation nl, no face palsy, no dysarthria Psychiatric: A+Ox3, euthymic affect Results & Data ([facility]) Vital Signs (Past 12 Hours) Vital Signs Pulse Resp BP Pulse Ox 02/20/21 07:52 101 H 20 02/20/21 02:42 89 96 02/20/21 00:22 86 135/50 L 94 02/20/21 00:03 86 135/50 L 97 02/19/21 22:08 92 H 15 Laboratory Results 02/20/21 02/20/21 02/20/21 Range/Units 10:07 04:33 04:33 WBC 10.62 D (4.8-10.8) K/uL RBC 4.09 L (4.2-5.4) M/uL Hgb 12.1 (12.0-16.0) g/dL Hct 38.8 (37-47) % MCV 94.9 (80-100) fL MCH 29.6 (25-34) pg MCHC 31.2 L (32-36) g/dL RDW Std Deviation 52.2 H (36.4-46.3) fL RDW Coeff of Stef 15.2 H (11.5-14.5) % Plt Count 213 (130-400) K/uL MPV 11.5 H (7.4-10.4) fL Immature Gran % (Auto) 0.7 % Neut % (Auto) 92.6 % Lymph % (Auto) 3.9 % [place] % (Auto) 2.8 % Eos % (Auto) 0.0 % Baso % (Auto) 0.0 % Neut # (Auto) 9.84 H (1.4-6.5) K/uL Lymph # (Auto) 0.41 L (1.2-3.4) K/uL [place] # (Auto) 0.30 (0.11-0.59) K/uL Eos # (Auto) 0.00 (0-0.5) K/uL Baso # (Auto) 0.00 (0-0.2) K/uL Immature Gran # (Auto) 0.07 H (0.00-0.02) K/uL D-Dimer (0-500) ug/L FEU Sodium 135 L (136-145) mmol/L Potassium 4.0 (3.5-5.1) mmol/L Chloride 101 (98-107) mmol/L Carbon Dioxide 32 (21-32) mmol/L Anion Gap 2.0 L (3-11) BUN 19 H (7-18) mg/dl Creatinine 0.39 L (0.6-1.2) mg/dl Est Cr Clr Drug Dosing 142.1 ml/min Est GFR ( Amer) 128.6 ml/min Est GFR (Non-Af Amer) 111.0 ml/min BUN/Creatinine Ratio 48.5 H (10-20) Glucose 172 H (70-99) mg/dl POC Glucose 275 H (70-99) mg/dl Calcium 7.2 L D (8.5-10.1) mg/dl Total Bilirubin (0.2-1) mg/dl AST (15-37) U/L ALT (12-78) Alkaline Phosphatase (45-117) U/L Troponin I 0.147 H* (0-0.045) ng/ml NT-Pro-B Natriuret Pep (0-900) pg/ml Total Protein (6.4-8.2) gm/dl Albumin (3.4-5.0) gm/dl Globulin (2.5-4.0) gm/dl Albumin/Globulin Ratio (0.9-2) Lipase (73-393) U/L Specimen Hemolysis SARS-CoV-2 (PCR) (Negative) Influenza Type A (PCR) (Neg) Influenza Type B (PCR) (Neg) RSV (RT-PCR) (Neg) 02/19/21 02/19/21 02/19/21 Range/Units 23:02 22:34 20:41 WBC (4.8-10.8) K/uL RBC (4.2-5.4) M/uL Hgb (12.0-16.0) g/dL Hct (37-47) % MCV (80-100) fL MCH (25-34) pg MCHC (32-36) g/dL RDW Std Deviation (36.4-46.3) fL RDW Coeff of Stef (11.5-14.5) % Plt Count (130-400) K/uL MPV (7.4-10.4) fL Immature Gran % (Auto) % Neut % (Auto) % Lymph % (Auto) % [place] % (Auto) % Eos % (Auto) % Baso % (Auto) % Neut # (Auto) (1.4-6.5) K/uL Lymph # (Auto) (1.2-3.4) K/uL [place] # (Auto) (0.11-0.59) K/uL Eos # (Auto) (0-0.5) K/uL Baso # (Auto) (0-0.2) K/uL Immature Gran # (Auto) (0.00-0.02) K/uL D-Dimer (0-500) ug/L FEU Sodium (136-145) mmol/L Potassium (3.5-5.1) mmol/L Chloride (98-107) mmol/L Carbon Dioxide (21-32) mmol/L Anion Gap (3-11) BUN (7-18) mg/dl Creatinine (0.6-1.2) mg/dl Est Cr Clr Drug Dosing ml/min Est GFR ( Amer) ml/min Est GFR (Non-Af Amer) ml/min BUN/Creatinine Ratio (10-20) Glucose (70-99) mg/dl POC Glucose 232 H 222 H (70-99) mg/dl Calcium (8.5-10.1) mg/dl Total Bilirubin (0.2-1) mg/dl AST (15-37) U/L ALT (12-78) Alkaline Phosphatase (45-117) U/L Troponin I 0.262 H* (0-0.045) ng/ml NT-Pro-B Natriuret Pep (0-900) pg/ml Total Protein (6.4-8.2) gm/dl Albumin (3.4-5.0) gm/dl Globulin (2.5-4.0) gm/dl Albumin/Globulin Ratio (0.9-2) Lipase (73-393) U/L Specimen Hemolysis SARS-CoV-2 (PCR) (Negative) Influenza Type A (PCR) (Neg) Influenza Type B (PCR) (Neg) RSV (RT-PCR) (Neg) 02/19/21 02/19/21 02/19/21 Range/Units 17:30 16:25 16:25 WBC (4.8-10.8) K/uL RBC (4.2-5.4) M/uL Hgb (12.0-16.0) g/dL Hct (37-47) % MCV (80-100) fL MCH (25-34) pg MCHC (32-36) g/dL RDW Std Deviation (36.4-46.3) fL RDW Coeff of Stef (11.5-14.5) % Plt Count (130-400) K/uL MPV (7.4-10.4) fL Immature Gran % (Auto) % Neut % (Auto) % Lymph % (Auto) % [place] % (Auto) % Eos % (Auto) % Baso % (Auto) % Neut # (Auto) (1.4-6.5) K/uL Lymph # (Auto) (1.2-3.4) K/uL [place] # (Auto) (0.11-0.59) K/uL Eos # (Auto) (0-0.5) K/uL Baso # (Auto) (0-0.2) K/uL Immature Gran # (Auto) (0.00-0.02) K/uL D-Dimer 290 (0-500) ug/L FEU Sodium 131 L (136-145) mmol/L Potassium 4.2 (3.5-5.1) mmol/L Chloride 93 L (98-107) mmol/L Carbon Dioxide 33 H (21-32) mmol/L Anion Gap 5.0 (3-11) BUN 24 H (7-18) mg/dl Creatinine 0.66 (0.6-1.2) mg/dl Est Cr Clr Drug Dosing 70.5 ml/min Est GFR ( Amer) 108.2 ml/min Est GFR (Non-Af Amer) 93.4 ml/min BUN/Creatinine Ratio 36.1 H (10-20) Glucose 172 H (70-99) mg/dl POC Glucose (70-99) mg/dl Calcium 9.0 (8.5-10.1) mg/dl Total Bilirubin 0.3 (0.2-1) mg/dl AST 22 (15-37) U/L ALT 16 (12-78) Alkaline Phosphatase 61 (45-117) U/L Troponin I 0.325 H* (0-0.045) ng/ml NT-Pro-B Natriuret Pep 3930 H (0-900) pg/ml Total Protein 6.3 L (6.4-8.2) gm/dl Albumin 3.2 L (3.4-5.0) gm/dl Globulin 3.1 (2.5-4.0) gm/dl Albumin/Globulin Ratio 1.0 (0.9-2) Lipase 170 (73-393) U/L Specimen Hemolysis SARS-CoV-2 (PCR) NEGATIVE (Negative) Influenza Type A (PCR) Negative (Neg) Influenza Type B (PCR) Negative (Neg) RSV (RT-PCR) Negative (Neg) 02/19/21 Range/Units 16:25 WBC 21.19 H (4.8-10.8) K/uL RBC 4.63 (4.2-5.4) M/uL Hgb 13.9 (12.0-16.0) g/dL Hct 44.2 (37-47) % MCV 95.5 (80-100) fL MCH 30.0 (25-34) pg MCHC 31.4 L (32-36) g/dL RDW Std Deviation 53.2 H (36.4-46.3) fL RDW Coeff of Stef 15.3 H (11.5-14.5) % Plt Count 270 (130-400) K/uL MPV 11.3 H (7.4-10.4) fL Immature Gran % (Auto) 0.7 % Neut % (Auto) 84.3 % Lymph % (Auto) 11.8 % [place] % (Auto) 3.1 % Eos % (Auto) 0.0 % Baso % (Auto) 0.1 % Neut # (Auto) 17.86 H (1.4-6.5) K/uL Lymph # (Auto) 2.50 (1.2-3.4) K/uL [place] # (Auto) 0.66 H (0.11-0.59) K/uL Eos # (Auto) 0.01 (0-0.5) K/uL Baso # (Auto) 0.02 (0-0.2) K/uL Immature Gran # (Auto) 0.14 H (0.00-0.02) K/uL D-Dimer (0-500) ug/L FEU Sodium (136-145) mmol/L Potassium (3.5-5.1) mmol/L Chloride (98-107) mmol/L Carbon Dioxide (21-32) mmol/L Anion Gap (3-11) BUN (7-18) mg/dl Creatinine (0.6-1.2) mg/dl Est Cr Clr Drug Dosing ml/min Est GFR ( Amer) ml/min Est GFR (Non-Af Amer) ml/min BUN/Creatinine Ratio (10-20) Glucose (70-99) mg/dl POC Glucose (70-99) mg/dl Calcium (8.5-10.1) mg/dl Total Bilirubin (0.2-1) mg/dl AST (15-37) U/L ALT (12-78) Alkaline Phosphatase (45-117) U/L Troponin I (0-0.045) ng/ml NT-Pro-B Natriuret Pep (0-900) pg/ml Total Protein (6.4-8.2) gm/dl Albumin (3.4-5.0) gm/dl Globulin (2.5-4.0) gm/dl Albumin/Globulin Ratio (0.9-2) Lipase (73-393) U/L Specimen Hemolysis SARS-CoV-2 (PCR) (Negative) Influenza Type A (PCR) (Neg) Influenza Type B (PCR) (Neg) RSV (RT-PCR) (Neg) Diagnostic Findings EKG on admission: NSR with PVC's. Possible old anterior infarct No acute ischemic changes Chest xray on admission: IMPRESSION: No acute process. Prelim echo report - preserved LV function, normal EF, no wall motion abnormalities. Slightly dilated RV. Outside chest CT completed 02/17 at [place] ER: No lung consolidation. COPD. Compression fracture at approximately L2, likely old. Clinical correlation is suggested Medications Administered Medications albuterol sulfate 90 mcg/actuation aerosol inhaler 2 puff INHALATION QID PRN 10/26/20 [History Confirmed 02/19/21] aspirin 81 mg tablet,delayed release 81 mg PO QAM 10/26/20 [History Confirmed 02/19/21] bisacodyl 10 mg rectal suppository (Dulcolax (bisacodyl)) 10 mg GA DAILY PRN MDD no more than 1 per week 10/26/20 [History Confirmed 02/19/21] budesonide-formoterol HFA 160 mcg-4.5 mcg/actuation aerosol inhaler (Symbicort) 2 puff INHALATION BID 10/26/20 [History Confirmed 02/19/21] calcium carbonate 600 mg-vitamin D3 5 mcg (200 unit) tablet (Calcium 600 + D(3)) 1 tab PO QAM 10/26/20 [History Confirmed 02/19/21] cholecalciferol (vitamin D3) 10 mcg (400 unit) chewable tablet (Vitamin D3) 10 mcg PO QAM 10/26/20 [History Confirmed 02/19/21] denosumab 60 mg/mL subcutaneous syringe (Prolia) 60 mg SUBCUT Q180D 10/26/20 [History Confirmed 02/19/21] dextroamphetamine-amphetamine 7.5 mg tablet 7.5 mg PO BID 10/26/20 [History Confirmed 02/19/21] docusate sodium 100 mg capsule 100 mg PO BID PRN 10/26/20 [History Confirmed 02/19/21] folic acid 1 mg tablet 1 mg PO QAM 10/26/20 [History Confirmed 02/19/21] hydrocortisone acetate 25 mg rectal suppository 25 mg GA BID PRN 10/26/20 [History Confirmed 02/19/21] ipratropium 0.5 mg-albuterol 3 mg (2.5 mg base)/3 mL nebulization soln 3 ml INHALATION Q4H PRN 10/26/20 [History Confirmed 02/19/21] lisinopril 20 mg tablet 20 mg PO QAM 10/26/20 [History Confirmed 02/19/21] lorazepam 0.5 mg tablet 0.5 mg PO BID PRN 10/26/20 [History Confirmed 02/19/21] multivitamin 1 tab PO QAM 10/26/20 [History Confirmed 02/19/21] pantoprazole 40 mg tablet,delayed release 40 mg PO QAM 10/26/20 [History Confirmed 02/19/21] potassium chloride 10 mEq capsule,extended release 10 meq PO TID 10/26/20 [History Confirmed 02/19/21] prednisone 5 mg tablet 5 mg PO QAM 10/26/20 [History Confirmed 02/19/21] rosuvastatin 10 mg tablet 10 mg PO PM 10/26/20 [History Confirmed 02/19/21] cyanocobalamin (vitamin B-12) 1,000 mcg/mL injection solution 1,000 mcg IM .Q 4 WEEKS 02/19/21 [History Confirmed 02/19/21] fluoxetine 20 mg capsule 20 mg PO DAILY 02/19/21 [History Confirmed 02/19/21] metformin 500 mg tablet,extended release 24 hr 500 mg PO QPM 02/19/21 [History Confirmed 02/19/21] methotrexate sodium 2.5 mg tablet 15 mg PO WK 02/19/21 [History Confirmed 02/19/21] tofacitinib 11 mg tablet,extended release 24 hr (Xeljanz XR) 11 mg PO DAILY 02/19/21 [History Confirmed 02/19/21] Home Medications Acetaminophen (Acetaminophen 325 Mg Tab) 650 mg PO Q4H PRN PRN Reason: Pain or Fever Stop: 03/21/21 22:22 Albuterol (Albut/Ipratrop 3mg/0.5mg Neb 3 Ml Vial) 3 ml NEB QIDR [facility] Stop: 03/22/21 06:59 Last Admin: 02/20/21 07:51 Dose: 3 ml Documented by: Amphetamine/Dextroamphetamine (Amphetamine Asp/Sulf/Dextramph 5 Mg Tab) 7.5 mg PO BID@0800,1400 [facility] Stop: 03/06/21 07:59 Aspirin (Aspirin 81 Mg Ectab) 81 mg PO QAM [facility] Stop: 03/22/21 08:59 Dextrose (Dextrose 50% 50 Ml Syringe) 25 - 50 ml IV UD PRN; Protocol PRN Reason: Hypoglycemia Protocol Stop: 03/21/21 22:22 Enoxaparin Sodium (Enoxaparin Inj 40 Mg/0.4 Ml Syr) 40 mg SQ QAM [facility] Stop: 03/22/21 08:59 Fluoxetine HCl (Fluoxetine Hcl 20 Mg Cap) 20 mg PO DAILY [facility] Stop: 03/22/21 08:59 Folic Acid (Folic Acid 1 Mg Tab) 1 mg PO QAM [facility] Stop: 03/22/21 08:59 Glucagon (Glucagon For Inj 1 Mg Vial) 1 mg SQ UD PRN; Protocol PRN Reason: Hypoglycemia Protocol Stop: 03/21/21 22:22 Glucose (Glucose 10 Tabs/Tube) 4 - 8 tabs PO UD PRN; Protocol PRN Reason: Hypoglycemia Protocol Stop: 03/21/21 22:22 Glucose (Glucose 40% Gel 15 Gm Tube) 15 - 30 gm PO UD PRN; Protocol PRN Reason: Hypoglycemia Protocol Stop: 03/21/21 22:22 Methylprednisolone 40 mg/ (Syringe) 0.64 mls @ 1.5 mls/min IV Q6H [facility] Stop: 03/21/21 19:44 Last Admin: 02/20/21 02:18 Dose: 1.5 mls/min Documented by: Insulin Aspart (Insulin Aspart Per Unit) 0 units SC ACHS [facility] Stop: 03/21/21 22:22 Last Admin: 02/19/21 23:15 Dose: 3 units Documented by: Lisinopril (Lisinopril 20 Mg Tab) 20 mg PO QAM [facility] Stop: 03/22/21 08:59 Lorazepam (Lorazepam 0.5 Mg Tab) 0.5 mg PO BID PRN PRN Reason: agitation/ anxiety Stop: 03/21/21 22:22 Last Admin: 02/20/21 07:47 Dose: 0.5 mg Documented by: Miscellaneous (Carbohydrates For Hypoglycemia ) 15 - 30 gm PO UD PRN PRN Reason: Hypoglycemia Protocol Stop: 03/21/21 22:22 Pantoprazole Sodium (Pantoprazole 40 Mg Tab) 40 mg PO QAM [facility] Stop: 03/22/21 08:59 Potassium Chloride (Potassium Chloride 10 Meq Tabcr) 10 meq PO TIDM [facility] Stop: 03/21/21 22:22 Last Admin: 02/19/21 23:04 Dose: 10 meq Documented by: Rosuvastatin Calcium (Rosuvastatin Calcium 10 Mg Tab) 10 mg PO PM [facility] Stop: 03/21/21 22:22 Last Admin: 02/19/21 23:04 Dose: 10 mg Documented by: Vitamin D (Cholecalciferol 400 Units 10 Mcg Tab) 400 units PO QAM [facility] Stop: 03/22/21 08:59 (1) COPD (chronic obstructive pulmonary disease) COPD type: unspecified COPD Qualified Code(s): J44.9 - Chronic obstructive pulmonary disease, unspecified
[2021-02-20] MEDS: ENOXAPARIN INJ 40 MG/0.4 ML SYR SQ SCH (09:18)
[2021-02-20] MEDS: PANTOprazole 40 MG TAB PO SCH (09:20)
[2021-02-20] MEDS: POTASSIUM CHLORIDE 10 MEQ TABCR PO SCH ×3 (09:20→20:35)
[2021-02-20] MEDS: FLUoxetine HCL 20 MG CAP PO SCH (09:21)
[2021-02-20] MEDS: ASPIRIN 81 MG ECTAB PO SCH (09:21)
[2021-02-20] MEDS: CHOLECALCIFEROL 400 UNITS 10 MCG TAB PO SCH (09:21)
[2021-02-20] MEDS: lisinopril 20 MG TAB PO SCH (09:22)
[2021-02-20] MEDS: FOLIC ACID 1 MG TAB PO SCH (09:22)
[2021-02-20] MEDS: INSULIN ASPART PER UNIT SC SCH ×4 (10:15→20:34)
--- NOTE | 2021-02-20 13:48 | Hospitalist Progress Note ---
Date of Service February 20, 2021 Assessment & Plan (1) COPD with exacerbation: (2) Hypoxia: Plan: Most likely due to COPD Exacerbation. While BNP is elevated, on exam, there is no evidence of significant fluid overload - Admit to med/surg tele - Continue supplemental O2 with goal to wean as tolerated - Sputum culture pending - cont IV methylprednisolone, IV Zosyn for another 24 hours, then de-escalate to oral prednisone and oral abx - DuoNebs QID scheduled with Q2 hrs prn, monitor for development of thrush per patient report historically. Not seen today on exam and patient not symptomatic. - Incentive spirometry, flutter valve (3) Elevated troponin: Plan: Significant risk factors for cardiac disease including diabetes, tobacco abuse, hypertension, ongoing rheumatoid arthritis. She also has a family history of premature CAD. For these reasons cardiology recommends ischemic work-up/stress test as an outpatient when she is out of the hospital and feeling better. For now elevated troponin likely due to myocardial strain secondary to hypoxia. She has no anginal symptoms at this time. Echo demonstrated normal EF without wall motion abnormalities and EKG is without acute changes. She should continue on aspirin, statin, lisinopril. Beta-mariela not initiated due to severe COPD and active wheezing. (4) Rheumatoid arthritis: Plan: Holding oral prednisone which she takes chronically at a dose of 5 mg daily while on IV steroids. Once appropriate de-escalate back to chronic prednisone daily. Methotrexate and Xeljanz currently on hold. Patient continues chronic narcotic therapy including scheduled hydrocodone 10/325 mg 4 times daily and oxycodone 5 mg p.o. IR for breakthrough. These medications are ordered by her patrol community service officer per PDMP review. (5) Diabetes mellitus, type II: Plan: Chronic, euglycemic, HOLD Metformin while admitted - Diabetic diet - Accuchecks - Sliding scale insulin (6) Anxiety: Plan: Chronic, controlled, continue home meds (7) ADHD: Plan: Home Adderall put on hold as patient has side effects of shakiness with current treatment (8) DVT prophylaxis: Plan: Lovenox Full code Disposition-continue hospital stay pending clinical improvement and resolution of hypoxia. [facility] Admission and Anticipated Discharge Date Admission Date: February 19, 2021 Subjective 66 yo F smoker with h/o RA on chronic prednisone and MTX as well as on high doses of chronic narcotics. +productive cough, yellow mucus starting to clear feels breathing is better tolerating PO on chronic narcotics and isn't getting her pain medications she reports taking her own supply because of pain holding her Adderall as this is making her too shaky Review of Systems Review of Systems: All systems reviewed & are unremarkable except as noted in Subjective Physical Exam Physical Exam: CONSTITUTIONAL: WNWD, vitals as above, generally well- appearing, NAD, eating lunch EYES: normal conjunctivae, no scleral icterus ENT: external ear and nose normal, MMM NECK: trachea midline RESPIRATORY: clear to auscultation bilaterally, no crackles, rales or wheezes, but very minimal air flow heard. normal respiratory effort CARDIOVASCULAR: regular rate and rhythm, S1 and 2 heard without murmurs, gallops or rubs, no JVD, no peripheral edema GASTROINTESTINAL: soft, nontender, ND, no guarding MUSCULOSKELETAL: strength 5/5 throughout, head is normocephalic and atraumatic SKIN: warm and dry NEUROLOGIC: CN 2-12 grossly intact, no sensory deficit, normal cognition, normal speech, no tremor PSYCHIATRIC: alert cooperative and oriented to person, place and time. Results & Data Results & Data ([facility]) Vital Signs (Past 12 Hours) Vital Signs Pulse Resp Pulse Ox 02/20/21 11:25 115 H 20 97 02/20/21 07:52 101 H 20 02/20/21 02:42 89 96 Laboratory Results Short CBC 02/19/21 02/20/21 Range/Units 16:25 04:33 WBC 21.19 H 10.62 D (4.8-10.8) K/uL Hgb 13.9 12.1 (12.0-16.0) g/dL Hct 44.2 38.8 (37-47) % Plt Count 270 213 (130-400) K/uL BMP 02/19/21 02/20/21 16:25 04:33 Sodium 131 L 135 L Potassium 4.2 4.0 Chloride 93 L 101 Carbon Dioxide 33 H 32 BUN 24 H 19 H Creatinine 0.66 0.39 L Glucose 172 H 172 H Calcium 9.0 7.2 L D Cardiac Enzymes 02/19/21 02/19/21 02/20/21 Range/Units 16:25 22:34 04:33 Troponin I 0.325 H* 0.262 H* 0.147 H* (0-0.045) ng/ml Liver Function 02/19/21 Range/Units 16:25 Total Bilirubin 0.3 (0.2-1) mg/dl AST 22 (15-37) U/L ALT 16 (12-78) Alkaline Phosphatase 61 (45-117) U/L Albumin 3.2 L (3.4-5.0) gm/dl Medications Administered Current Inpatient Medications Acetaminophen (Acetaminophen 325 Mg Tab) 650 mg PO Q4H PRN PRN Reason: Pain or Fever Stop: 03/21/21 22:22 Hydrocodone Bitart/Acetaminophen (Hydrocodone/Acetaminophen 10/325 Tab) 1 tab PO Q6H [facility] Stop: 03/06/21 13:44 Albuterol (Albut/Ipratrop 3mg/0.5mg Neb 3 Ml Vial) 3 ml NEB QIDR [facility] Stop: 03/22/21 06:59 Last Admin: 02/20/21 11:24 Dose: 3 ml Documented by: Amphetamine/Dextroamphetamine (Amphetamine Asp/Sulf/Dextramph 5 Mg Tab) 7.5 mg PO BID@0800,1400 [facility] Stop: 03/06/21 07:59 Last Admin: 02/20/21 09:25 Dose: Not Given Documented by: Aspirin (Aspirin 81 Mg Ectab) 81 mg PO QAM [facility] Stop: 03/22/21 08:59 Last Admin: 02/20/21 09:21 Dose: 81 mg Documented by: Dextrose (Dextrose 50% 50 Ml Syringe) 25 - 50 ml IV UD PRN; Protocol PRN Reason: Hypoglycemia Protocol Stop: 03/21/21 22:22 Enoxaparin Sodium (Enoxaparin Inj 40 Mg/0.4 Ml Syr) 40 mg SQ QAM [facility] Stop: 03/22/21 08:59 Last Admin: 02/20/21 09:18 Dose: 40 mg Documented by: Fluoxetine HCl (Fluoxetine Hcl 20 Mg Cap) 20 mg PO DAILY [facility] Stop: 03/22/21 08:59 Last Admin: 02/20/21 09:21 Dose: 20 mg Documented by: Folic Acid (Folic Acid 1 Mg Tab) 1 mg PO QAM [facility] Stop: 03/22/21 08:59 Last Admin: 02/20/21 09:22 Dose: 1 mg Documented by: Glucagon (Glucagon For Inj 1 Mg Vial) 1 mg SQ UD PRN; Protocol PRN Reason: Hypoglycemia Protocol Stop: 03/21/21 22:22 Glucose (Glucose 10 Tabs/Tube) 4 - 8 tabs PO UD PRN; Protocol PRN Reason: Hypoglycemia Protocol Stop: 03/21/21 22:22 Glucose (Glucose 40% Gel 15 Gm Tube) 15 - 30 gm PO UD PRN; Protocol PRN Reason: Hypoglycemia Protocol Stop: 03/21/21 22:22 Methylprednisolone 40 mg/ (Syringe) 0.64 mls @ 1.5 mls/min IV Q6H [facility] Stop: 03/21/21 19:44 Last Admin: 02/20/21 09:17 Dose: 1.5 mls/min Documented by: Insulin Aspart (Insulin Aspart Per Unit) 0 units SC ACHS [facility] Stop: 03/21/21 22:22 Last Admin: 02/20/21 10:15 Dose: 5 units Documented by: Lisinopril (Lisinopril 20 Mg Tab) 20 mg PO QAM [facility] Stop: 03/22/21 08:59 Last Admin: 02/20/21 09:22 Dose: 20 mg Documented by: Lorazepam (Lorazepam 0.5 Mg Tab) 0.5 mg PO BID PRN PRN Reason: agitation/ anxiety Stop: 03/21/21 22:22 Last Admin: 02/20/21 07:47 Dose: 0.5 mg Documented by: Miscellaneous (Carbohydrates For Hypoglycemia ) 15 - 30 gm PO UD PRN PRN Reason: Hypoglycemia Protocol Stop: 03/21/21 22:22 Oxycodone HCl (Oxycodone Hcl Ir 5 Mg Tab (Immediate Release)) 5 mg PO Q6H PRN PRN Reason: breakthrough joint pain Stop: 03/06/21 13:41 Pantoprazole Sodium (Pantoprazole 40 Mg Tab) 40 mg PO QAM [facility] Stop: 03/22/21 08:59 Last Admin: 02/20/21 09:20 Dose: 40 mg Documented by: Potassium Chloride (Potassium Chloride 10 Meq Tabcr) 10 meq PO TIDM [facility] Stop: 03/21/21 22:22 Last Admin: 02/20/21 09:20 Dose: 10 meq Documented by: Rosuvastatin Calcium (Rosuvastatin Calcium 10 Mg Tab) 10 mg PO PM [facility] Stop: 03/21/21 22:22 Last Admin: 02/19/21 23:04 Dose: 10 mg Documented by: Vitamin D (Cholecalciferol 400 Units 10 Mcg Tab) 400 units PO [facility] Stop: 03/22/21 08:59 Last Admin: 02/20/21 09:21 Dose: 400 units Documented by:
[2021-02-20] MEDS: HYDROcodone/ACETAMINOPHEN 10/325 TAB PO SCH ×2 (15:02→20:35)
[2021-02-20] MEDS ORDERED: oxyCODONE HCL IR 5 MG TAB (IMMEDIATE RELEASE) PO PRN (17:00)
[2021-02-20] MEDS: ROSUVASTATIN CALCIUM 10 MG TAB PO SCH (22:01)
[2021-02-21] MEDS: methylPREDNISolone 40 MG in SYRINGE 0 ML IV SCH ×3 (02:04→14:20)
[2021-02-21] MEDS: HYDROcodone/ACETAMINOPHEN 10/325 TAB PO SCH ×4 (02:04→19:49)
[2021-02-21 05:11] LABS: Basophils # (auto) 0.01 K/uL (0-0.2); Hematocrit (blood only) 41.6 % (37-47); Hemoglobin 12.9 g/dL (12.0-16.0); Immature Granulocytes # (auto) 0.08 K/uL (0.00-0.02); Immature Granulocytes % (auto) 0.4 %; Lymphocytes # (auto) 0.91 K/uL (1.2-3.4); Lymphocytes % (auto) 4.5 %; Mean Corpuscular Hemoglobin 29.8 pg (25-34); Mean Corpuscular Volume 96.1 fL (80-100); Monocytes # (auto) 0.27 K/uL (0.11-0.59); Monocytes % (auto) 1.3 %; Neutrophils # (auto) 18.98 K/uL (1.4-6.5); Neutrophils % (auto) 93.8 %; Platelet Count 224 K/uL (130-400); RDW Coefficient of Variation 15.2 % (11.5-14.5); RDW Standard Deviation 53.3 fL (36.4-46.3); Red Blood Count 4.33 M/uL (4.2-5.4); White Blood Count 20.25 K/uL (4.8-10.8)
[2021-02-21 06:03] LABS: BUN Creatinine Ratio 47.2 (10-20); Blood Urea Nitrogen 25 mg/dl (7-18); C Reactive Protein < 0.29 mg/dl (0-0.29); Calcium 8.6 mg/dl (8.5-10.1); Carbon Dioxide 37 mmol/L (21-32); Chloride 95 mmol/L (98-107); Creatinine Clr Calc Pharmacy 104.6 ml/min; Est GFR (African American) 116.3 ml/min; Est GFR (Non-African American) 100.3 ml/min; Glucose 184 mg/dl (70-99); Potassium 4.6 mmol/L (3.5-5.1); Sodium 134 mmol/L (136-145)
[2021-02-21] MEDS: ALBUT/IPRATROP 3MG/0.5MG NEB 3 ML VIAL NEB SCH ×4 (07:29→19:12)
[2021-02-21] MEDS: LORazepam 0.5 MG TAB PO PRN (08:01)
[2021-02-21] MEDS: FLUoxetine HCL 20 MG CAP PO SCH (08:02)
[2021-02-21] MEDS: ENOXAPARIN INJ 40 MG/0.4 ML SYR SQ SCH (08:02)
[2021-02-21] MEDS: CHOLECALCIFEROL 400 UNITS 10 MCG TAB PO SCH (08:02)
[2021-02-21] MEDS: FOLIC ACID 1 MG TAB PO SCH (08:02)
[2021-02-21] MEDS: POTASSIUM CHLORIDE 10 MEQ TABCR PO SCH ×3 (08:03→18:32)
[2021-02-21] MEDS: lisinopril 20 MG TAB PO SCH (08:03)
[2021-02-21] MEDS: PANTOprazole 40 MG TAB PO SCH (08:03)
[2021-02-21] MEDS: ASPIRIN 81 MG ECTAB PO SCH (08:03)
[2021-02-21] MEDS: INSULIN ASPART PER UNIT SC SCH ×4 (08:41→21:38)
--- NOTE | 2021-02-21 10:29 | Cardiology Progress Note ---
Date of Service February 21, 2021 Assessment & Plan (1) Elevated troponin: (2) Acute and chronic respiratory failure with hypoxia: (3) COPD (chronic obstructive pulmonary disease): (4) Hypertension: (5) Dyslipidemia: Plan: Patient admitted for acute respiratory failure with hypoxia secondary to COPD exacerbation. Does not examine as volume overload to suggest CHF. BNP is normal for age. Echo with normal LV function, no wall motion abnormalities. Recommend continuing steroids, nebs, antibiotics per hospitalist. She does have significant cardiac risk factors including DM, tobacco abuse, hypertension, dyslipidemia, and family history of premature CAD. Therefore, once her COPD exacerbation has improved, recommend ischemic work up/stress test as an outpatient. Can be arranged by PCP. At this time, no further cardiac testing is warranted. Will sign off. Case discussed with Dr. Duckworth Admission and Anticipated Discharge Date Admission Date: February 19, 2021 Supervising Physician Co-Signing Physician Notes Patient seen and examined at the bedside. Admitted with shortness of breath, hypoxia, cough. Mildly elevated troponin noted. Denies chest discomfort or heaviness. Chronic dyspnea on exertion attributed to COPD/ongoing tobacco abuse. Cough and dyspnea unchanged overnight. PE: General: Awake alert [place] x3, chronically ill. Heart: Regular, borderline tachycardic, normal S1-S2. No murmur. Lungs: Diminished breath sounds bilaterally. End expiratory wheezing noted. No rhonchi appreciated. Extremities: No edema. A/P: Agree with above PA-C history, physical exam, assessment and plan. Mildly elevated troponin secondary to acute hypoxemic respiratory failure, COPD ex acerbation. Continue corticosteroids, nebulizer, and antibiotics as per internal medicine. Due to risk factors and family history, recommend outpatient ischemic evaluation, likely pharmacologic stress testing. Findings and recommendations discussed with patient and her at bedside. Thank you for allow me to participate in the care of your patient. Cardiology will sign off. Please call with questions. Subjective Patient resting in bed comfortably. Ongoing dyspnea reported with minimal exertion. Still coughing with sputum production. ongoing wheeze. Feels mildly improved from yesterday. no chest pain. No dizziness or lightheadedness. No orthopnea, PND or edema. Review of Systems Review of Systems: All systems reviewed & are unremarkable except as noted in HPI & below Physical Exam Constitutional: WD/WN, vitals as above well developed and + ill appearing; not in distress Neck: trachea midline, no thyromegaly Respiratory: + cough and + audible wheezes; no respiratory distress Auscultation: + diminished lung sounds and + wheezes Cardiovascular: RRR, no murmur, no edema Gastrointestinal (Abdomen): normal bowel sounds, soft, nontender, no hepatosplenomegaly Skin: no rashes, warm and dry Neurologic: PERRL, EOMI, accommodation nl, no face palsy, no dysarthria Psychiatric: A+Ox3, euthymic affect Results & Data ([facility]) Vital Signs (Past 12 Hours) Vital Signs Temp Pulse Pulse Resp BP BP Pulse Ox 02/21/21 08:00 36.5 C 98 H 20 124/63 95 02/21/21 07:30 96 H 22 96 02/21/21 04:00 85 16 132/82 97 Laboratory Results 02/21/21 02/21/21 02/21/21 Range/Units 08:14 04:59 04:59 WBC (4.8-10.8) K/uL RBC (4.2-5.4) M/uL Hgb (12.0-16.0) g/dL Hct (37-47) % MCV (80-100) fL MCH (25-34) pg MCHC (32-36) g/dL RDW Std Deviation (36.4-46.3) fL RDW Coeff of Stef (11.5-14.5) % Plt Count (130-400) K/uL MPV (7.4-10.4) fL Immature Gran % (Auto) % Neut % (Auto) % Lymph % (Auto) % Cannon % (Auto) % Eos % (Auto) % Baso % (Auto) % Neut # (Auto) (1.4-6.5) K/uL Lymph # (Auto) (1.2-3.4) K/uL Cannon # (Auto) (0.11-0.59) K/uL Eos # (Auto) (0-0.5) K/uL Baso # (Auto) (0-0.2) K/uL Immature Gran # (Auto) (0.00-0.02) K/uL ESR 7 (0-30) mm/hr Sodium (136-145) mmol/L Potassium (3.5-5.1) mmol/L Chloride (98-107) mmol/L Carbon Dioxide (21-32) mmol/L Anion Gap (3-11) BUN (7-18) mg/dl Creatinine (0.6-1.2) mg/dl Est Cr Clr Drug Dosing ml/min Est GFR ( Amer) ml/min Est GFR (Non-Af Amer) ml/min BUN/Creatinine Ratio (10-20) Glucose (70-99) mg/dl POC Glucose 198 H (70-99) mg/dl Calcium (8.5-10.1) mg/dl C-Reactive Protein (0-0.29) mg/dl Procalcitonin < 0.05 (0-0.5) ng/ml 02/21/21 02/21/21 02/20/21 Range/Units 04:59 04:59 20:17 WBC 20.25 H (4.8-10.8) K/uL RBC 4.33 (4.2-5.4) M/uL Hgb 12.9 (12.0-16.0) g/dL Hct 41.6 (37-47) % MCV 96.1 (80-100) fL MCH 29.8 (25-34) pg MCHC 31.0 L (32-36) g/dL RDW Std Deviation 53.3 H (36.4-46.3) fL RDW Coeff of Stef 15.2 H (11.5-14.5) % Plt Count 224 (130-400) K/uL MPV 11.0 H (7.4-10.4) fL Immature Gran % (Auto) 0.4 % Neut % (Auto) 93.8 % Lymph % (Auto) 4.5 % Cannon % (Auto) 1.3 % Eos % (Auto) 0.0 % Baso % (Auto) 0.0 % Neut # (Auto) 18.98 H (1.4-6.5) K/uL Lymph # (Auto) 0.91 L (1.2-3.4) K/uL Cannon # (Auto) 0.27 (0.11-0.59) K/uL Eos # (Auto) 0.00 (0-0.5) K/uL Baso # (Auto) 0.01 (0-0.2) K/uL Immature Gran # (Auto) 0.08 H (0.00-0.02) K/uL ESR (0-30) mm/hr Sodium 134 L (136-145) mmol/L Potassium 4.6 (3.5-5.1) mmol/L Chloride 95 L (98-107) mmol/L Carbon Dioxide 37 H (21-32) mmol/L Anion Gap 2.0 L (3-11) BUN 25 H (7-18) mg/dl Creatinine 0.53 L (0.6-1.2) mg/dl Est Cr Clr Drug Dosing 104.6 ml/min Est GFR ( Amer) 116.3 ml/min Est GFR (Non-Af Amer) 100.3 ml/min BUN/Creatinine Ratio 47.2 H (10-20) Glucose 184 H (70-99) mg/dl POC Glucose 266 H (70-99) mg/dl Calcium 8.6 D (8.5-10.1) mg/dl C-Reactive Protein < 0.29 (0-0.29) mg/dl Procalcitonin (0-0.5) ng/ml 02/20/21 Range/Units 12:34 WBC (4.8-10.8) K/uL RBC (4.2-5.4) M/uL Hgb (12.0-16.0) g/dL Hct (37-47) % MCV (80-100) fL MCH (25-34) pg MCHC (32-36) g/dL RDW Std Deviation (36.4-46.3) fL RDW Coeff of Stef (11.5-14.5) % Plt Count (130-400) K/uL MPV (7.4-10.4) fL Immature Gran % (Auto) % Neut % (Auto) % Lymph % (Auto) % Cannon % (Auto) % Eos % (Auto) % Baso % (Auto) % Neut # (Auto) (1.4-6.5) K/uL Lymph # (Auto) (1.2-3.4) K/uL Cannon # (Auto) (0.11-0.59) K/uL Eos # (Auto) (0-0.5) K/uL Baso # (Auto) (0-0.2) K/uL Immature Gran # (Auto) (0.00-0.02) K/uL ESR (0-30) mm/hr Sodium (136-145) mmol/L Potassium (3.5-5.1) mmol/L Chloride (98-107) mmol/L Carbon Dioxide (21-32) mmol/L Anion Gap (3-11) BUN (7-18) mg/dl Creatinine (0.6-1.2) mg/dl Est Cr Clr Drug Dosing ml/min Est GFR ( Amer) ml/min Est GFR (Non-Af Amer) ml/min BUN/Creatinine Ratio (10-20) Glucose (70-99) mg/dl POC Glucose 124 H (70-99) mg/dl Calcium (8.5-10.1) mg/dl C-Reactive Protein (0-0.29) mg/dl Procalcitonin (0-0.5) ng/ml Diagnostic Findings echo results reviewed - No prior study for comparison. EF 55-60% RV is mildly dilated. RV systolic function is qualitatively normal. Small, loculated anterior and right lateral pericardial effusion. There are no echocardiographic indications of cardiac tamponade. Grade I diastolic dysfunction. Medications Administered Current Inpatient Medications Acetaminophen (Acetaminophen 325 Mg Tab) 650 mg PO Q4H PRN PRN Reason: Pain or Fever Stop: 03/21/21 22:22 Hydrocodone Bitart/Acetaminophen (Hydrocodone/Acetaminophen 10/325 Tab) 1 tab PO Q6H [facility] Stop: 03/06/21 13:59 Last Admin: 02/21/21 08:01 Dose: 1 tab Documented by: Albuterol (Albut/Ipratrop 3mg/0.5mg Neb 3 Ml Vial) 3 ml NEB QIDR [facility] Stop: 03/22/21 06:59 Last Admin: 02/21/21 07:29 Dose: 3 ml Documented by: Amphetamine/Dextroamphetamine (Amphetamine Asp/Sulf/Dextramph 5 Mg Tab) 7.5 mg PO BID@0800,1400 [facility] Stop: 03/06/21 07:59 Last Admin: 02/20/21 09:25 Dose: Not Given Documented by: Aspirin (Aspirin 81 Mg Ectab) 81 mg PO QAM [facility] Stop: 03/22/21 08:59 Last Admin: 02/21/21 08:03 Dose: 81 mg Documented by: Dextrose (Dextrose 50% 50 Ml Syringe) 25 - 50 ml IV UD PRN; Protocol PRN Reason: Hypoglycemia Protocol Stop: 03/21/21 22:22 Enoxaparin Sodium (Enoxaparin Inj 40 Mg/0.4 Ml Syr) 40 mg SQ QAM [facility] Stop: 03/22/21 08:59 Last Admin: 02/21/21 08:02 Dose: 40 mg Documented by: Fluoxetine HCl (Fluoxetine Hcl 20 Mg Cap) 20 mg PO DAILY [facility] Stop: 03/22/21 08:59 Last Admin: 02/21/21 08:02 Dose: 20 mg Documented by: Folic Acid (Folic Acid 1 Mg Tab) 1 mg PO QAM [facility] Stop: 03/22/21 08:59 Last Admin: 02/21/21 08:02 Dose: 1 mg Documented by: Glucagon (Glucagon For Inj 1 Mg Vial) 1 mg SQ UD PRN; Protocol PRN Reason: Hypoglycemia Protocol Stop: 03/21/21 22:22 Glucose (Glucose 10 Tabs/Tube) 4 - 8 tabs PO UD PRN; Protocol PRN Reason: Hypoglycemia Protocol Stop: 03/21/21 22:22 Glucose (Glucose 40% Gel 15 Gm Tube) 15 - 30 gm PO UD PRN; Protocol PRN Reason: Hypoglycemia Protocol Stop: 03/21/21 22:22 Methylprednisolone 40 mg/ (Syringe) 0.64 mls @ 1.5 mls/min IV Q6H [facility] Stop: 03/21/21 19:44 Last Admin: 02/21/21 08:02 Dose: 1.5 mls/min Documented by: Insulin Aspart (Insulin Aspart Per Unit) 0 units SC ACHS [facility] Stop: 03/21/21 22:22 Last Admin: 02/21/21 08:41 Dose: 6 units Documented by: Lisinopril (Lisinopril 20 Mg Tab) 20 mg PO QAM [facility] Stop: 03/22/21 08:59 Last Admin: 02/21/21 08:03 Dose: 20 mg Documented by: Lorazepam (Lorazepam 0.5 Mg Tab) 0.5 mg PO BID PRN PRN Reason: agitation/ anxiety Stop: 03/21/21 22:22 Last Admin: 02/21/21 08:01 Dose: 0.5 mg Documented by: Miscellaneous (Carbohydrates For Hypoglycemia ) 15 - 30 gm PO UD PRN PRN Reason: Hypoglycemia Protocol Stop: 03/21/21 22:22 Oxycodone HCl (Oxycodone Hcl Ir 5 Mg Tab (Immediate Release)) 5 mg PO Q6H PRN PRN Reason: breakthrough joint pain Stop: 03/06/21 16:59 Pantoprazole Sodium (Pantoprazole 40 Mg Tab) 40 mg PO QAM [facility] Stop: 03/22/21 08:59 Last Admin: 02/21/21 08:03 Dose: 40 mg Documented by: Potassium Chloride (Potassium Chloride 10 Meq Tabcr) 10 meq PO TIDM [facility] Stop: 03/21/21 22:22 Last Admin: 02/21/21 08:03 Dose: 10 meq Documented by: Rosuvastatin Calcium (Rosuvastatin Calcium 10 Mg Tab) 10 mg PO PM [facility] Stop: 03/21/21 22:22 Last Admin: 02/20/21 22:01 Dose: 10 mg Documented by: Vitamin D (Cholecalciferol 400 Units 10 Mcg Tab) 400 units PO QAM [facility] Stop: 03/22/21 08:59 Last Admin: 02/21/21 08:02 Dose: 400 units Documented by: (1) COPD (chronic obstructive pulmonary disease) COPD type: unspecified COPD Qualified Code(s): J44.9 - Chronic obstructive pulmonary disease, unspecified
--- NOTE | 2021-02-21 13:14 | Electrocardiogram Report ---
Test Reason : Blood Pressure : / mmHG Vent. Rate : 097 BPM Atrial Rate : 097 BPM P-R Int : 140 ms QRS Dur : 066 ms QT Int : 326 ms P-R-T Axes : 081 091 071 degrees QTc Int : 414 ms Poor data quality, interpretation may be adversely affected Sinus rhythm with occasional Premature ventricular complexes Possible Left atrial enlargement Rightward axis Anteroseptal infarct , age undetermined Abnormal ECG When compared with ECG of 28-OCT-2020 07:48, Premature ventricular complexes are now Present Questionable change in QRS duration Anteroseptal infarct is now Present Confirmed by Gaston Vargas ([id number]) on 02/21/2021 1:14:17 PM Referred By: Confirmed By:Gaston Vargas
[2021-02-21] MEDS ORDERED: AZITHROMYCIN 250 MG TAB PO ONE ×2 (16:10→18:23)
--- NOTE | 2021-02-21 16:40 | Hospitalist Progress Note ---
Date of Service February 21, 2021 Assessment & Plan (1) COPD with exacerbation: Plan: 66 y/o female with a PMH of RA on chronic methotrexate/prednisone/Xeljanz, newly diagnosed DM, COPD, and osteoporosis presented 02/19 to the ED with worsening shortness of breath. Pt reports increasing frequency of exacerbations over the past few months with multiple course of oral steroids and antibiotics. She was recommended to have ECHO and PFTs but declined at that time, preferring to minimize testing if possible. 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 She is being managed for the following: (1) COPD with exacerbation: (2) Hypoxia: (3) tobacco abuse: Longtime smoker, agreeable to nicotine patch, counseled about quitting smoking. Does not use any oxygen at home. Hypoxia Most likely due to COPD Exacerbation 2/2 likely infectious etiology. While BNP is elevated, on exam, there is no evidence of significant fluid overload C/w med/surg tele Continue supplemental O2 with goal to wean as tolerated 02/20 Sputum culture pending We will transition to p.o. steroid from tomorrow, continue with prednisone 02/22 for 5 days. Continue with Augmentin and azithromycin 02/21. DuoNebs as needed and scheduled. Incentive spirometry and flutter valve. Patient feeling better with decreasing sputum production. Patient will need 2 step test prior to discharge. (3) Elevated troponin: Significant risk factors for cardiac disease including diabetes, tobacco abuse, hypertension, ongoing rheumatoid arthritis. She also has a family history of premature CAD. For these reasons cardiology recommends ischemic work-up/stress test as an outpatient when she is out of the hospital and feeling better. For now elevated troponin likely due to myocardial strain secondary to hypoxia. She has no anginal symptoms at this time. Echo demonstrated normal EF without wall motion abnormalities and EKG is without acute changes. She should continue on aspirin, statin, lisinopril. Beta-mariela not initiated due to severe COPD and active wheezing. (4) Rheumatoid arthritis: Holding oral prednisone which she takes chronically at a dose of 5 mg daily while on IV steroids. Once appropriate de-escalate back to chronic prednisone daily. Methotrexate and Xeljanz currently on hold. Patient continues chronic narcotic therapy including scheduled hydrocodone 10/325 mg 4 times daily and oxycodone 5 mg p.o. IR for breakthrough. These medications are ordered by her environmental compliance engineer per PDMP review. (5) Diabetes mellitus, type II: Chronic, euglycemic, HOLD Metformin while admitted - Diabetic diet - Accuchecks - Sliding scale insulin (6) Anxiety: Chronic, controlled, continue home meds (7) ADHD: Home Adderall put on hold as patient has side effects of shakiness with current treatment (8) DVT prophylaxis: Lovenox Full code Disposition-likely DC to home in a day or 2, will need to be stable prior to discharge. Admission and Anticipated Discharge Date Admission Date: February 19, 2021 Subjective Patient was sitting up in bed, on 2 L nasal cannula oxygen, no new acute events overnight. Patient reports cough with sputum production getting better. Patient denies fever/chills/increased shortness of breath/chest pain/palpitation/other review of symptoms. Patient reports feeling better. Patient reports eating and moving bowels okay. Patient reports being a longtime smoker, counseled about quitting smoking, patient agreeable to try nicotine patches. Patient had tried Chantix in the past and stopped on her own. Physical Exam Physical Exam: GENERAL: Alert and oriented x3. NAD, on 3L HEENT: No pallor, no icterus. Pupils equal, round and reactive to light. Oral mucosa moist. NECK: No JVD, no neck masses. HEART: S1 and S2 heard. Regular rate and rhythm. No murmur, no gallop. RESPIRATORY SYSTEM: Normal AP diameter. No accessory muscle use. B/l wheezing, + b/l occasional crackles. ABDOMEN: Soft, bowel sounds present, nontender, no distention. CENTRAL NERVOUS SYSTEM: No facial droop. Speech is clear. Obeys simple commands. Moves extremities. EXTREMITIES: No edema, no erythema seen. Results & Data Results & Data ([facility]) Vital Signs (Past 12 Hours) Vital Signs Temp Pulse Resp BP Pulse Ox 02/21/21 14:04 96 H 24 92 02/21/21 11:37 36.7 C 89 20 109/52 L 97 02/21/21 11:35 98 H 24 95 02/21/21 08:00 36.5 C 98 H 20 124/63 95 02/21/21 07:30 96 H 22 96
[2021-02-21] MEDS ORDERED: BENZONATATE 100 MG CAPSULE ONE (18:24)
[2021-02-21] MEDS ORDERED: guaiFENesin 600 MG TABCR PO ONE (18:24)
[2021-02-21] MEDS: NICOTINE 21 MG/24 HR TDSY TD SCH (18:30)
[2021-02-21] MEDS: BENZONATATE 100 MG CAPSULE PO SCH (18:56)
[2021-02-21] MEDS: guaiFENesin 600 MG TABCR PO SCH (18:57)
[2021-02-21] MEDS: AMOXICILLIN/CLAVULANATE 875 MG TAB PO SCH (19:42)
--- NOTE | 2021-02-21 21:43 | Communication Note ---
Date of Service: February 21, 2021 Patient feels like she is about to have oral thrush because of hospital meds as per RN. Patient requesting for Fluconazole Rx prescribed by PCP outpatient during attacks. Switch Azithromycin to Doxycycline given potential interaction of former medication with Fluconazole.
[2021-02-21] MEDS ORDERED: FLUCONAZOLE 100 MG TAB PO ONE (21:44)
[2021-02-21] MEDS: ROSUVASTATIN CALCIUM 10 MG TAB PO SCH (21:47)
[2021-02-22] MEDS: HYDROcodone/ACETAMINOPHEN 10/325 TAB PO SCH ×3 (02:31→14:14)
[2021-02-22 04:10] LABS: Hematocrit (blood only) 41.4 % (37-47); Hemoglobin 12.8 g/dL (12.0-16.0); Mean Corpuscular Hemoglobin 29.8 pg (25-34); Mean Corpuscular Hgb Conc 30.9 g/dL (32-36); Mean Corpuscular Volume 96.5 fL (80-100); Mean Platelet Volume 11.3 fL (7.4-10.4); Platelet Count 234 K/uL (130-400); RDW Coefficient of Variation 15.1 % (11.5-14.5); Red Blood Count 4.29 M/uL (4.2-5.4); White Blood Count 22.24 K/uL (4.8-10.8)
[2021-02-22 04:36] LABS: BUN Creatinine Ratio 47.6 (10-20); Calcium 8.2 mg/dl (8.5-10.1); Est GFR (African American) 123.6 ml/min; Est GFR (Non-African American) 106.7 ml/min; Potassium 4.1 mmol/L (3.5-5.1)
[2021-02-22] MEDS: ALBUT/IPRATROP 3MG/0.5MG NEB 3 ML VIAL NEB SCH ×2 (07:51→10:53)
[2021-02-22] MEDS: guaiFENesin 600 MG TABCR PO SCH (08:43)
[2021-02-22] MEDS: lisinopril 20 MG TAB PO SCH (08:44)
[2021-02-22] MEDS: AMOXICILLIN/CLAVULANATE 875 MG TAB PO SCH (08:45)
[2021-02-22] MEDS: FLUoxetine HCL 20 MG CAP PO SCH (08:45)
[2021-02-22] MEDS: CHOLECALCIFEROL 400 UNITS 10 MCG TAB PO SCH (08:45)
[2021-02-22] MEDS: FOLIC ACID 1 MG TAB PO SCH (08:46)
[2021-02-22] MEDS: ASPIRIN 81 MG ECTAB PO SCH (08:46)
[2021-02-22] MEDS: PANTOprazole 40 MG TAB PO SCH (08:46)
[2021-02-22] MEDS: POTASSIUM CHLORIDE 10 MEQ TABCR PO SCH ×2 (08:47→14:14)
[2021-02-22] MEDS: LORazepam 0.5 MG TAB PO PRN (08:48)
[2021-02-22] MEDS: ENOXAPARIN INJ 40 MG/0.4 ML SYR SQ SCH (08:48)
[2021-02-22] MEDS: BENZONATATE 100 MG CAPSULE PO SCH ×2 (08:48→14:14)
[2021-02-22] MEDS: NICOTINE 21 MG/24 HR TDSY TD SCH (08:51)
[2021-02-22] MEDS: INSULIN ASPART PER UNIT SC SCH ×2 (08:53→12:39)
[2021-02-22] MEDS ORDERED: DOXYCYCLINE HYCLATE 100 MG CAP PO SCH (09:00)
[2021-02-22] MEDS ORDERED: predniSONE 20 MG TAB PO SCH (09:00)
--- NOTE | 2021-02-22 13:25 | Cardiology Progress Note ---
Date of Service February 22, 2021 Assessment & Plan (1) Elevated troponin: (2) Paroxysmal junctional tachycardia: (3) Acute and chronic respiratory failure with hypoxia: (4) COPD (chronic obstructive pulmonary disease): (5) Hypertension: (6) Dyslipidemia: Plan: Recommend addition of low-dose Cardizem CD, 120 mg daily. Reduce lisinopril to 10 mg daily to avoid hypotension. Recommend outpatient ZIO monitor and ischemic work-up with stress testing when COPD exacerbation has resolved. Admission and Anticipated Discharge Date Admission Date: February 19, 2021 Subjective Called to reevaluate patient due to tachycardia on telemetry. Telemetry reviewed demonstrating narrow complex tachycardia at a rate of approximately 160 bpm. Patient asymptomatic. Dysrhythmia was self-limited. I suspect junctional tachycardia versus supraventricular tachycardia. Her baseline heart rates have been mildly elevated. Denies any chest discomfort or lightheadedness. Shortness of breath and cough mildly improved. Review of Systems Review of Systems: All systems reviewed & are unremarkable except as noted in Subjective Physical Exam Constitutional: WD/WN, vitals as above well developed and + ill appearing; not in distress Neck: trachea midline, no thyromegaly Respiratory: + cough and + audible wheezes; no respiratory distress Auscultation: + diminished lung sounds and + wheezes Cardiovascular: RRR, no murmur, no edema Rate/Rhythm: + tachycardic Gastrointestinal (Abdomen): normal bowel sounds, soft, nontender, no hepatosplenomegaly Skin: no rashes, warm and dry Neurologic: PERRL, EOMI, accommodation nl, no face palsy, no dysarthria Psychiatric: A+Ox3, euthymic affect Results & Data ([facility]) Vital Signs (Past 12 Hours) Vital Signs Temp Pulse Pulse Pulse Pulse Pulse Resp 02/22/21 12:18 100 H 22 02/22/21 10:54 87 106 H 93 H 100 H 90 21 02/22/21 07:52 91 H 18 02/22/21 03:30 36.6 C 89 24 Resp Resp Resp Resp BP Pulse Ox Pulse Ox 02/22/21 12:18 137/67 94 02/22/21 10:54 20 20 18 18 98 91 02/22/21 07:52 98 02/22/21 03:30 127/79 98 Pulse Ox Pulse Ox Pulse Ox 02/22/21 12:18 02/22/21 10:54 87 L 91 93 02/22/21 07:52 02/22/21 03:30 (1) COPD (chronic obstructive pulmonary disease) COPD type: unspecified COPD Qualified Code(s): J44.9 - Chronic obstructive pulmonary disease, unspecified
[2021-02-22] MEDS ORDERED: ADVANCED PROBIOTIC 1250 MG CAPSULE PO SCH (14:00)
[2021-02-22] MEDS ORDERED: dilTIAZem HCL 120 MG CAPCR PO SCH (14:00)
[2021-02-22] MEDS ORDERED: AZITHROMYCIN 250 MG TAB PO SCH (16:00)
--- NOTE | 2021-02-22 19:51 | Discharge Summary ---
Date of Service February 22, 2021 Admission HPI Per Admitting Provider This is a 66 y/o female with a PMH of RA on chronic methotrexate/prednisone/Xeljanz, newly diagnosed DM, COPD, and osteoporosis who presented to the ED today with worsening shortness of breath. Pt reports increasing frequency of exacerbations over the past few months with multiple course of oral steroids and antibiotics. She was recommended to have ECHO and PFTs but declined at that time, preferring to minimize testing if possible. Her current exacerbation started 5 days ago when she was out in the cold air shopping with her daughter. She used her albuterol inhaler when she got home which seemed to help. However, her respiratory status has gradually declined since then. She was seen in the ED at [place] on 02/17/21 and was diagnosed with COPD exacerbation and mild CHF. Given dexamethasone 10 mg IV x 1, Lasix 40 mg IV x 1, DuoNeb x 1, and Ativan 0.5 mg po x 1 dose in the ED there and discharged home. Since then pt has noted worsening SOB at rest and with exertion. She has a home pulseox and notes that her sats have dropped to 80-82% with ambulation, improve to low 90s with rest. She has been borrowing her neighbor's oxygen for the past two days and using 3L to maintain sats, keep h erself comfortable. She has had PND, head congestion, runny nose but denies ST. No known exposure to COVID. She has received three dose of the COVID vaccine (Moderna - last one 12/18/20). She has noted wheezing and chest tightness - using albuterol nebs twice a day. Denies chest pain, palpitations, syncope, dizziness. No prior hx of pneumonia. Only admission for COPD was when she was first diagnosed years ago. Admission Exam Per Admitting Provider Constitutional: + ill appearing; no acute distress Eyes: + anicteric sclerae Neck: trachea midline Respiratory: + prolonged expiratory phase; no respira tory distress and does not use accessory muscles Auscultation: + diminished lung sounds and + wheezes Cardiovascular: Rate/Rhythm: regular rate and regular rhythm Vessels: dorsalis pedis pulses present and radial pulses present Extremities: no calf tenderness and no edema Gastrointestinal (Abdomen): Inspection/Auscultation: normal bowel sounds; abdomen not distended Percussion/Palpation: abdomen soft; abdomen nontender Musculoskeletal: Head/Neck/Chest: normocephalic, head atraumatic and neck supple Skin: no jaundice Neurologic: moves all extremities; no focal motor deficits Psychiatric: A+Ox3, euthymic affect Principal Diagnosis Acute exacerbation of COPD Possible pneumonia Discharge Exam GENERAL: Alert and oriented x3. NAD, on 3L HEENT: No pallor, no icterus. Pupils equal, round and reactive to light. Oral mucosa moist. NECK: No JVD, no neck masses. HEART: S1 and S2 heard. Regular rate and rhythm. No murmur, no gallop. RESPIRATORY SYSTEM: Normal AP diameter. No accessory muscle use. B/l wheezing -has decreased today, + b/l occasional crackles. ABDOMEN: Soft, bowel sounds present, nontender, no distention. CENTRAL NERVOUS SYSTEM: No facial droop. Speech is clear. Obeys simple commands. Moves extremities. EXTREMITIES: No edema, no erythema seen. Discharge Data Allergies Allergy/AdvReac Type Severity Reaction Status Date / Time cephalexin Allergy Unknown Unknown Verified 02/19/21 17:06 Consultations 02/19/21 17:08 ED Decision to Admit Stat 02/19/21 22:23 Consult Cardiology Routine Hospital Course (1) COPD with exacerbation: 66 y/o female with a PMH of RA on chronic methotrexate/prednisone/Xeljanz, newly diagnosed DM, COPD, and osteoporosis presented 02/19 to the ED with worsening shortness of breath. Pt reports increasing frequency of exacerbations over the past few months with multiple course of oral steroids and antibiotics. She was recommended to have ECHO and PFTs but declined at that time, preferring to minimize testing if possible. Her current exacerbation started 5 days [employer] when she was out in the cold air shopping with her daughter.She doesn't use O2 at home. She is being managed for the following: (1) COPD with exacerbation: (2) Hypoxia: (3) tobacco abuse: Longtime smoker, agreeable to nicotine patch, counseled about quitting smoking. Does not use any oxygen at home. Hypoxia Most likely due to COPD Exacerbation 2/2 likely infectious etiology. While BNP is elevated, on exam, there is no evidence of significant fluid overload C/w med/surg tele Continue supplemental O2 with goal to wean as tolerated 02/20 Sputum culture pending Continue with prednisone 02/22 for 5 days. Continue with Augmentin and azithromycin 02/21 to complete the course as an outpatient. DuoNebs as needed and scheduled. Incentive spirometry and flutter valve. Patient feeling better with decreasing sputum production. Two-step test ordered---> patient is 2 L oxygen with ambulation/activity. A prescription provided. A prescription for nebulizer machine provided. (3) Elevated troponin: (3) supraventricular tachycardia-1 episode today morning for approximately 5 seconds, evaluated by cardiology and made some medication changes recommendation. Patient will need outpatient Zio monitoring per cardiology. Significant risk factors for cardiac disease including diabetes, tobacco abuse, hypertension, ongoing rheumatoid arthritis. She also has a family history of premature CAD. For these reasons cardiology recommends ischemic work-up/stress test as an outpatient when she is out of the hospital and feeling better. For now elevated troponin likely due to myocardial strain secondary to hypoxia. She has no anginal symptoms at this time. Echo demonstrated normal EF without wall motion abnormalities and EKG is without acute changes. She should continue on aspirin, statin, lisinopril. Beta-mariela not initiated due to severe COPD and active wheezing. Cardiology decrease the dose on lisinopril from 20 mg daily to 10 mg daily, added Cardizem 120 mg daily. (4) Rheumatoid arthritis: Holding oral prednisone which she takes chronically at a dose of 5 mg daily while on IV steroids. Once appropriate de-escalate back to chronic prednisone daily. Methotrexate and Xeljanz currently on hold. Patient continues chronic narcotic therapy including scheduled hydrocodone 10/325 mg 4 times daily and oxycodone 5 mg p.o. IR for breakthrough. These medications are ordered by her zinc plate cutter per PDMP review. (5) Diabetes mellitus, type II: Chronic, euglycemic, HOLD Metformin while admitted - Diabetic diet - Accuchecks - Sliding scale insulin (6) Anxiety: Chronic, controlled, continue home meds (7) ADHD: Home Adderall put on hold as patient has side effects of shakiness with current treatment (8) DVT prophylaxis: Lovenox Full code Patient being discharged home with following instruction at the point of discharge: Follow-up with your primary care physician within a week time. Follow-up with your lung doctor as an outpatient in 1 to 2 months time, you will need outpatient pulmonary function test as part of your evaluation for your COPD. You will be discharged on few days worth of antibiotics and steroid, take medications as prescribed. Take your low-dose steroid for your rheumatoid arthritis after you complete high-dose steroid for your acute exacerbation of COPD. You were evaluated by your heart doctor while inpatient who recommended ischemic work-up/stress test as an outpatient. Follow-up with your heart doctor as an outpatient. Also heart doctor decreased your lisinopril dose from 20 mg daily to 10 mg daily, added Cardizem 120 mg daily, recommended Zio monitor as an outpatient. You will have to follow-up with heart doctor for Zio monitor. Encourage quitting smoking, will discharge you with nicotine patch, follow-up with your primary care physician for further nicotine patches/recommendation. Use nebulizing machine when needed for wheezing/shortness of breath. Take medications as prescribed. Total Time Total Time Spent Total Time Spent (In Minutes): 40 Discharge Plan Discharge Items Patient Disposition: Home - Self-Care Reason For Visit: COPD EXACERBATION, HYPOXIA, +TROPONIN Discharge Diagnosis: Acute exacerbation of COPD Possible pneumonia Activity: Resume your previous activity Non-emergency contact: Primary Care Provider Call non-emergency contact if: you have any medication questions, your symptoms worsen and your temperature is above 101 Follow-up/Referrals: Son Felipe MD [Outside Practitioners] - (Date & Time 03/13/2021 8:20 AM Provider [facility] PLEASE NOTE THAT THIS IS A TELEHEALTH VIDEO APPOINTMENT. PLEASE FOLLOW THE INSTRUCTIONS PROVIDED IN YOUR EMAIL. IF YOU HAVE ANY QUESTIONS REGARDING THIS APPOINTMENT, PLEASE CALL ) Carlos Ambriz, [Primary Care Provider] - (Date & Time 02/26/2021 11:20 AM Provider Mary Jacobson MD Department Family Practice [facility] ) Diet: Carb Consistent or DM2 and Heart Healthy Addtl Attending Provider Instructions: Follow-up with your primary care physician within a week time. Follow-up with your lung doctor as an outpatient in 1 to 2 months time, you will need outpatient pulmonary function test as part of your evaluation for your COPD. You will be discharged on few days worth of antibiotics and steroid, take medications as prescribed. Take your low-dose steroid for your rheumatoid arthritis after you complete high-dose steroid for your acute exacerbation of COPD. You were evaluated by your heart doctor while inpatient who recommended ischemic work-up/stress test as an outpatient. Follow-up with your heart doctor as an outpatient. Also heart doctor decreased your lisinopril dose from 20 mg daily to 10 mg daily, added Cardizem 120 mg daily, recommended Zio monitor as an outpatient. You will have to follow-up with heart doctor for Zio monitor. Encourage quitting smoking, will discharge you with nicotine patch, follow-up with your primary care physician for further nicotine patches/recommendation. Use nebulizing machine when needed for wheezing/shortness of breath. Take medications as prescribed. Pending Studies at Discharge: No Stand-Alone Forms: My [facility], Smoking Cessation Medications and DC Order Prescriptions: New amoxicillin-pot clavulanate [Augmentin] 875-125 mg Tablet 1 tab PO BIDM 4 Days Qty: 8 RF: 0 doxycycline hyclate 100 mg Capsule 100 mg PO BID 4 Days Qty: 8 RF: 0 fluconazole 100 mg Tablet 100 mg PO HS 5 Days Qty: 5 RF: 0 nicotine [Nicoderm CQ] 21 mg/24 hr Patch 24 Hour 21 mg transdermal QAM 28 Days Qty: 28 RF: 0 lisinopril 10 mg Tablet 10 mg PO QAM Qty: 30 RF: 0 diltiazem HCl 120 mg Capsule,Extended Release 24hr 120 mg PO QAM Qty: 30 RF: 0 Advanced Probiotic 625 mg (10 billion cell) Capsule 2 cap PO DAILY 5 Days Qty: 10 RF: 0 prednisone 20 mg Tablet 40 mg PO DAILY 4 Days Qty: 8 RF: 0 guaifenesin [Mucinex] 600 mg Tablet Extended Release 12hr 600 mg PO Q12 5 Days Qty: 10 RF: 0 Continued multivitamin Tablet 1 tab PO QAM RF: 0 dextroamphetamine-amphetamine 7.5 mg tablet 7.5 mg PO BID RF: 0 potassium chloride 10 mEq capsule, extended release 10 meq PO TID RF: 0 ipratropium-albuterol 0.5 mg-3 mg(2.5 mg base)/3 mL solution for nebulization 3 ml INHALATION Q4H PRN (Reason: SOB) RF: 0 calcium carbonate-vitamin D3 [Calcium 600 + D(3)] 600 mg(1,500mg) -200 unit Tablet 1 tab PO QAM RF: 0 aspirin 81 mg Tablet,Delayed Release (Dr/Ec) 81 mg PO QAM RF: 0 hydrocortisone acetate 25 mg Suppository 25 mg CA BID PRN (Reason: Hemorrhoids) RF: 0 lorazepam 0.5 mg tablet 0.5 mg PO BID PRN (Reason: agitation/ anxiety) RF: 0 bisacodyl [Dulcolax (bisacodyl)] 10 mg Suppository 10 mg CA DAILY MDD no more than 1 per week PRN (Reason: Constipation) RF: 0 pantoprazole 40 mg tablet,delayed release (DR/EC) 40 mg PO QAM RF: 0 docusate sodium 100 mg Capsule 100 mg PO BID PRN (Reason: Constipation) RF: 0 folic acid 1 mg tablet 1 mg PO QAM RF: 0 albuterol sulfate 90 mcg/actuation HFA aerosol inhaler 2 puff INHALATION QID PRN (Reason: Shortness Of Breath) RF: 0 rosuvastatin 10 mg tablet 10 mg PO PM RF: 0 budesonide-formoterol [Symbicort] 160-4.5 mcg/actuation HFA aerosol inhaler 2 puff INHALATION BID RF: 0 cholecalciferol (vitamin D3) [Vitamin D3] 10 mcg (400 unit) Tablet,Chewable 10 mcg PO QAM RF: 0 Prolia 60 mg/mL Syringe 60 mg SUBCUT Q180D RF: 0 prednisone 5 mg tablet 5 mg PO QAM RF: 0 Xeljanz XR 11 mg tablet extended release 24 hr 11 mg PO DAILY RF: 0 methotrexate sodium 2.5 mg tablet 15 mg PO WK RF: 0 cyanocobalamin (vitamin B-12) 1,000 mcg/mL Solution 1,000 mcg IM .Q 4 WEEKS RF: 0 fluoxetine 20 mg capsule 20 mg PO DAILY RF: 0 metformin 500 mg tablet extended release 24 hr 500 mg PO QPM RF: 0 Discontinued lisinopril 20 mg tablet 20 mg PO QAM RF: 0 Discharge Orders: Discharge Order (Routine); Ordered 02/22/21 Ordered By: George Dill Admission Data Admit Date/Time: 02/19/21 18:25 Attending Provider: George Dill Admit Provider: Erin Fan Primary Care Provider: Carlos Ambriz Other Providers: Crystal Kelley ; Darrell Baltazar Other Interventions: Discharge Summary Assessment (RN) Last Done: 02/22/21 15:43
[2021-02-22] MEDS ORDERED: FLUCONAZOLE 100 MG TAB PO SCH (21:00)
[2021-02-23] MEDS ORDERED: lisinopril 10 MG TAB PO SCH (09:00)
--- NOTE | 2021-02-23 19:13 | Electrocardiogram Report ---
Test Reason : Blood Pressure : / mmHG Vent. Rate : 090 BPM Atrial Rate : 090 BPM P-R Int : 130 ms QRS Dur : 080 ms QT Int : 360 ms P-R-T Axes : 077 087 061 degrees QTc Int : 440 ms Normal sinus rhythm Cannot rule out Anterior infarct (cited on or before 19-FEB-2021) Abnormal ECG When compared with ECG of 19-FEB-2021 16:06, (unconfirmed) Premature ventricular complexes are no longer Present Non-specific change in ST segment in Inferior leads Confirmed by Gaston Vargas ([id number]) on 02/23/2021 7:12:58 PM Referred By: Carlos Ambriz Confirmed By:Gaston Vargas
== END 2021-02-22 15:43 | disposition home or self-care (01) | DRG 190 ==
LOC: ED 15:59 → SUATTDRO 18:25 → EDINP 18:25
DX: F90.9 Attention-deficit hyperactivity disorder, unspecified type; J96.21 Acute and chronic respiratory failure with hypoxia; M81.0 Age-related osteoporosis without current pathological fracture; J44.1 Chronic obstructive pulmonary disease with (acute) exacerbation; I50.9 Heart failure, unspecified; Z79.82 Long term (current) use of aspirin; I47.1 Supraventricular tachycardia; R79.89 Other specified abnormal findings of blood chemistry; M06.9 Rheumatoid arthritis, unspecified; J18.9 Pneumonia, unspecified organism; Z79.899 Other long term (current) drug therapy; E11.9 Type 2 diabetes mellitus without complications; Z79.84 Long term (current) use of oral hypoglycemic drugs; F17.210 Nicotine dependence, cigarettes, uncomplicated; Z88.1 Allergy status to other antibiotic agents; B37.0 Candidal stomatitis; E78.5 Hyperlipidemia, unspecified